=== PATIENT | male | born 1945 | race Caucasian/White ===

== ENCOUNTER → 2017-10-18 | Outpatient (REF) | payer OTHER, MEDICARE, SELFPAY | LOC: LAB 19:06 | PROVIDERS: PCP Internal Medicine; Visit Provider Internal Medicine | DX: I10 Essential (primary) hypertension (principal); E78.00 Pure hypercholesterolemia, unspecified; N40.0 Benign prostatic hyperplasia without lower urinary tract symptoms | CPT/HCPCS: 80048; 80061; 84153; 84450 ==

== ENCOUNTER 2018-03-02 08:21 | Day surgery (SDC) | payer OTHER, MEDICARE, SELFPAY ==
[2018-03-02] VITALS (8 sets, daily range): BP systolic 100–123; BP diastolic 66–78; PULSE 61–75; RESP 12–22; TEMP 35.9–36.2; O2SAT 93–97; BMI 27.3
--- NOTE | 2018-03-02 | PATH_ITS ---
[facility] Accession Number: [id number] . 01 Material submitted: . RIGHT COLON POLYP . 02 Diagnosis: Right Colon, Polyp, Biopsy: Tubular adenoma. MRV/03/03/2018 . 02 Electronically signed: . Lizzeth Lundberg MD, Pathologist NPI- [id number] . 01 Gross description: . Received one formalin-filled container labeled with the patient's name, labeled right colon. The specimen consists of a 0.3 cm portion of tissue, entirely submitted in one cassette. (DC:[id number]) /FRR . 02 Pathologist provided ICD-10: D12.6 . 02 CPT . 330790 Performed at: [address] [facility] [address] [id number] MD Daniel Jimenez MD Phone: [phone] Performed at: 02 [facility] [address] [place], [place] [id number] MD Kamaljit Figueroa MD Phone: [phone]
[2018-03-02] MEDS: SODIUM CHLORIDE 0.9% 1,000 ML 42 ML IV (09:15)
--- NOTE | 2018-03-02 09:25 | P.CONS_ITS ---
History of Present Illness Date Patient Seen: 03/02/18 Time Patient Seen: 09:23 Chief complaint: colonoscopy egd [id number] Reason for consult: Colonoscopy Narrative: Patient is a 72year-old male with a history of polyps and due for follow-up colonoscopy. He has no GI symptoms. [facility] Social History household members: spouse Comment: See for previous history. Patient has atrial fibrillation status post pacemaker placement hypertension and reflux Meds Home Medications Medication Instructions Recorded Confirmed Type aspirin 162 mg PO QDAY #0 03/14/16 03/02/18 History Lactobacillus acidophilus 1 tab PO QDAY #0 tab 03/30/16 History multivitamin [Multiple Vitamins] 1 tab PO QDAY #0 tab 03/30/16 History [PROBIOTIC] 1 cap PO QDAY #0 08/12/16 History lisinopril 10 mg PO QDAY #30 tab 08/12/16 03/02/18 History propranolol 10 mg PO QDAY #0 08/12/16 03/02/18 History amlodipine 10 mg PO DAILY 03/02/18 03/02/18 History Allergies Allergy/AdvReac Type Severity Reaction Status Date / Time No Known Drug Allergies Allergy Verified 03/02/18 08:56 Exam Vital Signs (past 8 hours): HEENT oropharynx free of lesion Chest clear to auscultation percussion Cardiac exam reveals no S3 or murmur- 03/02/18 08:59 Temperature 96.8 F L Pulse Rate 62 Respiratory Rate 16 Blood Pressure 123/78 H Pulse Oximetry 95 Oxygen Delivery Method Room Air Assessment & Plan Plan: Assessment/Plan Narrative: Colonoscopy
--- NOTE | 2018-03-02 10:06 | PM.OP.ENDO ---
Operative Date/Time/Diagnoses Date of procedure: 03/02/18 Time of procedure: 10:06 Pre-op diagnosis: Screening and dysphagia Post-op diagnosis: same Procedure & Clinicians Study performed: EGD and colonoscopy Same procedure as scheduled: Yes Indications: Upper substernal dysphagia with known past history of a mild Schatzki's ring. Last colonoscopy 10 years ago. Follow-up for screening Procedure Notes Procedure in detail: After informed consent was obtained the patient was placed in the left lateral decubitus position. The video upper scope placed into the oropharynx with the patient's help swallowed into the esophagus. The esophagus stomach and duodenum were carefully examined. On withdrawal retroflexed view the GE junction was performed. The scope was removed. The patient was then turned and the colonoscope was introduced to the rectum slowly advanced to the cecum. On slow withdrawal the mucosa was carefully examined. Preparation was good. Scope was removed patient tolerated procedure well Blood loss none Complications none Medications: Fentanyl 100 mcg, Versed 4 mg plus total sedation time Findings Upper endoscopy 1. LA classification C esophagitis with 4 areas of erosion at the squamocolumnar junction. There was mild stricturing at this level/Schatzki's ring. A 48 [place] dilator was passed over the guidewire without difficulty. 2. Small hiatal hernia between 37 and 39 cm. 3. Normal stomach otherwise 4. Normal duodenal bulb and sweep Colonoscopy 1. 4 mm polyp in mid ascending colon Jumbo biopsy did remove completely 2. Rare scattered diverticular orifices 3. Otherwise negative colonoscopy to cecum We will be in touch regarding his polyp biopsies but most certainly will need follow-up colonoscopy in 5 years. He is currently not on any acid suppressing medication though he should be. I would suggest pantoprazole 40 mg daily. He should call in 4 weeks let me know how he is doing from the standpoint of his dysphagia.
--- NOTE | 2018-03-02 10:07 | SUR.OPER ---
to endo from opd via cart respiration unlabired iv patent positioned per self for procedure
--- NOTE | 2018-03-02 10:37 | SUR.OPER ---
tolerated procedure well
[2018-03-02] MEDS: MIDAZOLAM 5 MG/5 ML VIAL 9 MG IV (10:40)
[2018-03-02] MEDS: fentaNYL 250 MCG/5 ML INJ 100 MCG IV (10:40)
--- NOTE | 2018-03-02 10:42 | P.OP.ENDO_ITS ---
Operative Date/Time/Diagnoses Date of procedure: 03/02/18 Time of procedure: 10:39 Pre-op diagnosis: Dysphagia and 10 year screening colonoscopy Post-op diagnosis: same Procedure & Clinicians Surgeon: Aaliyah Farrell Procedure Notes Procedure in detail: After informed consent was obtained the patient was placed in left lateral decubitus position. The video upper scope was placed into the oropharynx with the patient's help swallowed into of the esophagus. The esophagus stomach and duodenum were carefully examined. On withdrawal retroflex view of the GE junction was performed. The scope was removed the patient tolerated procedure well. The patient was then turned and the colonoscope was substituted. This was introduced in the rectum slowly advanced to the cecum. This was identified by appendiceal orifice and IC valve. Preparation was excellent. On slow withdrawal mucosa was carefully examined. The scope was removed the patient tolerated procedure well. Blood loss none complications none Sedation fentanyl 100 mcg Versed 9 mg IV titration. Total sedation time 17 min Findings EGD 1. LA classification C esophagitis with 4 areas of discontinuous erosive disease at the GE junction 37 cm from the incisors. There was a mild Schatzki' s ring/inflammatory stricture here which was dilated to 48 [place] Savary. 2. 2 cm hiatal hernia between 37 and 39 cm 3. Otherwise negative stomach Four. Normal duodenum Colonoscopy One. 4 mm polyp in the mid ascending colon Jumbo biopsy removed completely 2. Rare scattered diverticular orifices 3. Otherwise negative colonoscopy to cecum We will be in touch with the patient regarding his polyp findings but almost certainly will need follow-up colonoscopy in 5 years. Has concerns is dysphagia who be placed on acid suppressing medication to heal his esophagitis and be in touch with me by telephone in 4 weeks to let me know how his dysphagia is doing. He has no background history of heartburn. Sedation minutes: 17 Recommendations: Colonscopy in 5 years
== END 2018-03-02 11:25 | disposition home or self-care (01) ==
PROVIDERS: PCP Internal Medicine; Visit Provider Internal Medicine Gastroenterology
PROC: 0DJ08ZZ Inspection of Upper Intestinal Tract, Via Natural or Artificial Opening Endoscopic (ICD-10-PCS; CPT 43235; principal; 2018-03-02 09:30)
PROC: 0DJD8ZZ Inspection of Lower Intestinal Tract, Via Natural or Artificial Opening Endoscopic (ICD-10-PCS; CPT 45378; 2018-03-02 09:30)
DX: Z12.11 Encounter for screening for malignant neoplasm of colon (principal); R13.14 Dysphagia, pharyngoesophageal phase; K57.30 Diverticulosis of large intestine without perforation or abscess without bleeding; K21.9 Gastro-esophageal reflux disease without esophagitis; K20.9 Esophagitis, unspecified; K22.2 Esophageal obstruction; K44.9 Diaphragmatic hernia without obstruction or gangrene; D12.2 Benign neoplasm of ascending colon
CPT/HCPCS: 45380; 43248; 88305; J2250; J3010

== ENCOUNTER → 2019-10-17 09:38 | Outpatient (CLI) | payer OTHER, MEDICARE, SELFPAY ==
[2019-10-17 10:12] LABS: RBC Urine None Seen (0-5/HPF); WBC Urine None Seen (0-5/HPF)
[2019-10-17 11:06] LABS: Appearance Urine UA CLEAR; Bilirubin Urine UA NEGATIVE (NEGATIVE); Color Urine UA YELLOW; Glucose Urine UA NEGATIVE (Negative); Ketones Urine UA NEGATIVE (NEGATIVE); Leukocyte Esterase Urine UA NEGATIVE (NEGATIVE); Nitrite Urine UA NEGATIVE (Negative); Occult Blood Urine UA NEGATIVE (Negative); Protein Urine UA NEGATIVE (Negative); Specific Gravity Urine UA >=1.030 (1.000-1.035); Urobilinogen Urine UA 0.2 E.U./dL (0.2)
[2019-10-17 11:09] LABS: Bacteria Urine Occasional (0-1); Culture Indicated Urine Cult Not Indicated; Mucus Urine 3+ (Negative)
[2019-10-17 11:39] LABS: Add Manual Diff / Slide Review NO; Basophils Absolute Auto 0 /uL (0-100); Basophils Percent Auto 0.4 % (0-2); Eosinophils Absolute Auto 300 /uL (0-450); Eosinophils Percent Auto 3.7 % (2-4); Hematocrit 42.5 % (41-53); Hemoglobin 14.6 g/dL (13.5-17.5); Lymphocytes Absolute Auto 2200 /uL (1100-4500); Lymphocytes Percent Auto 28.5 % (25-40); Mean Corpuscular HGB Conc 34.3 % (30-36); Mean Corpuscular Hemoglobin 31.1 PG (26-34); Mean Corpuscular Volume 90.6 fL (80-100); Monocytes Absolute Auto 800 /uL (0-900); Neutrophils Absolute Auto 4300 /uL (1500-7000); Neutrophils Percent Auto 57.4 % (50-75); Platelet Count 249 X10^3/uL (150-400); Red Blood Cell Count 4.69 X10^6/uL (4.5-5.9); Red Cell Distribution Width 13.6 % (11.6-14.8); White Blood Cell Count 7.6 X10^3/uL (4.5-11.0)
[2019-10-17 11:57] LABS: Alanine Aminotransferase 40 IU/L (<50); Albumin 4.1 g/dL (3.5-5.0); Albumin Globulin Ratio 1.1 (1.0-2.8); Alkaline Phosphatase 71 U/L (38-126); Aspartate Aminotransferase 33 IU/L (17-59); BUN Creatinine Ratio 25.6 (6-22); Bilirubin Total 0.7 mg/dL (0.2-1.3); Blood Urea Nitrogen 23 mg/dL (9-20); Calcium 9.7 mg/dL (8.4-10.2); Carbon Dioxide 26 mmol/L (22-32); Chloride 104 mmol/L (98-107); Cholesterol 178 mg/dL (140-199); Estimated Glomerular Filt Rate > 60.0 mL/min (>60); Globulin 3.7 g/dL (1.7-4.1); Glucose 102 mg/dL (80-110); HDL Cholesterol 37 mg/dL (40-60); HEMOLYSIS < 15 (0-50); LDL Cholesterol Calculated 117 mg/dL (<100); Potassium 4.8 mmol/L (3.4-5.1); Sodium 141 mmol/L (137-145); Total Protein 7.8 g/dL (6.3-8.2); Triglycerides 118 mg/dL (35-150)
[2019-10-17 12:27] LABS: Prostate Specific Antigen Scrn 1.68 ng/mL (0.1-4.0)
== END ==
PROVIDERS: PCP Internal Medicine; Referring Provider Orthopaedic Surgery; Visit Provider Orthopaedic Surgery
DX: N40.0 Benign prostatic hyperplasia without lower urinary tract symptoms (principal); I10 Essential (primary) hypertension; E78.00 Pure hypercholesterolemia, unspecified; E66.3 Overweight; E78.2 Mixed hyperlipidemia
CPT/HCPCS: 36415; 80053; 80061; 81001; 85025; G0103

== ENCOUNTER → 2022-01-26 17:06 | Outpatient (CLI) | payer MEDICARE, SELFPAY ==
[2022-01-26 18:10] LABS: Hematocrit 45.1 % (41-53); Hemoglobin 15.3 g/dL (13.5-17.5); Mean Corpuscular HGB Conc 33.8 % (30-36); Mean Corpuscular Hemoglobin 30.9 PG (26-34); Mean Corpuscular Volume 91.2 fL (80-100); Platelet Count 235 X10^3/uL (150-400); Red Blood Cell Count 4.94 X10^6/uL (4.5-5.9); Red Cell Distribution Width 13.3 % (11.6-14.8); White Blood Cell Count 9.3 X10^3/uL (4.5-11.0)
[2022-01-26 18:42] LABS: Alanine Aminotransferase 35 IU/L (<50); Albumin Globulin Ratio 1.1 (1.0-2.8); Alkaline Phosphatase 73 U/L (38-126); Aspartate Aminotransferase 36 IU/L (17-59); BUN Creatinine Ratio 19.6 (6-22); Bilirubin Total 0.6 mg/dL (0.2-1.3); Blood Urea Nitrogen 22 mg/dL (9-20); Calcium 9.5 mg/dL (8.4-10.2); Carbon Dioxide 31 mmol/L (22-32); Chloride 104 mmol/L (98-107); Cholesterol 132 mg/dL (140-199); Estimated Glomerular Filt Rate > 60 mL/min (>60); Globulin 4.5 g/dL (1.7-4.1); Glucose 89 mg/dL (80-110); HDL Cholesterol 48 mg/dL (40-60); HEMOLYSIS < 15 (0-50); LDL Cholesterol Calculated 47 mg/dL (<100); Potassium 4.2 mmol/L (3.4-5.1); Sodium 144 mmol/L (137-145); Total Protein 9.5 g/dL (6.3-8.2); Triglycerides 187 mg/dL (35-150)
[2022-01-26 19:13] LABS: Prostate Specific Antigen 2.22 ng/mL (0.10-4.00); TSH w/ Reflex to FT4 2.01 uIU/mL (0.47-4.68)
== END ==
PROVIDERS: PCP Internal Medicine; Referring Provider Internal Medicine; Visit Provider Internal Medicine
DX: I10 Essential (primary) hypertension (principal); E78.2 Mixed hyperlipidemia; I67.9 Cerebrovascular disease, unspecified; N40.0 Benign prostatic hyperplasia without lower urinary tract symptoms
CPT/HCPCS: 36415; 80053; 80061; 84153; 84443; 85027

== ENCOUNTER → 2023-02-26 11:01 | Outpatient (CLI) | payer MEDICARE, SELFPAY ==
--- NOTE | 2023-02-26 11:05 | DI.RAD.S_ITS ---
PROCEDURE: XR CHEST 2V INDICATIONS: Dyspnea on exertion TECHNIQUE: 2 views of the chest were acquired. COMPARISON: [facility], , CHEST 1 VIEW, 08/12/2016, 18:35. FINDINGS: Surgical changes and devices: Left chest wall pacemaker leads are in the region of right atrium and right ventricle. Patient is status post prior bilateral shoulder arthroplasty. Lungs and pleura: Mild pulmonary vascular congestion is seen. No focal infiltrate. No pleural effusions or pneumothorax. Mediastinum: Mediastinal contours are normal. Heart size is normal. Bones and chest wall: No suspicious bony abnormalities. Soft tissues appear unremarkable. IMPRESSION: Mild congestion. No focal infiltrate, pleural effusion or pneumothorax. Dictated by: Arian Casey M.D. on 02/26/2023 at 12:57 Approved by: Arian Casey M.D. on 02/26/2023 at 13:00
[2023-02-26 12:25] LABS: Add Manual Diff / Slide Review NO; Basophils Absolute Auto 0 /uL (0-100); Basophils Percent Auto 0.5 % (0-2); Eosinophils Absolute Auto 200 /uL (0-450); Eosinophils Percent Auto 2.3 % (2-4); Hematocrit 43.3 % (41-53); Hemoglobin 14.6 g/dL (13.5-17.5); Lymphocytes Absolute Auto 2500 /uL (1100-4500); Lymphocytes Percent Auto 34.6 % (25-40); Mean Corpuscular HGB Conc 33.6 % (30-36); Mean Corpuscular Hemoglobin 30.3 PG (26-34); Mean Corpuscular Volume 90.1 fL (80-100); Monocytes Absolute Auto 700 /uL (0-900); Monocytes Percent Auto 9.8 % (3-14); Neutrophils Absolute Auto 3700 /uL (1500-7000); Neutrophils Percent Auto 52.8 % (50-75); Platelet Count 272 X10^3/uL (150-400); Red Blood Cell Count 4.81 X10^6/uL (4.5-5.9); White Blood Cell Count 7.1 X10^3/uL (4.5-11.0)
[2023-02-26 13:01] LABS: Alanine Aminotransferase 41 IU/L (<50); Albumin 4.2 g/dL (3.5-5.0); Albumin Globulin Ratio 1.1 (1.0-2.8); Alkaline Phosphatase 71 U/L (38-126); Aspartate Aminotransferase 34 IU/L (17-59); BUN Creatinine Ratio 21.4 (6-22); Bilirubin Total 0.4 mg/dL (0.2-1.3); Blood Urea Nitrogen 25 mg/dL (9-20); Carbon Dioxide 28 mmol/L (22-32); Chloride 106 mmol/L (98-107); Estimated Glomerular Filt Rate > 60 mL/min (>60); Globulin 3.8 g/dL (1.7-4.1); Glucose 68 mg/dL (80-110); HEMOLYSIS 27 (0-50); Potassium 4.4 mmol/L (3.4-5.1); Sodium 140 mmol/L (137-145)
== END ==
PROVIDERS: PCP Internal Medicine; Referring Provider Internal Medicine; Visit Provider Internal Medicine
DX: R06.09 Other forms of dyspnea (principal); I10 Essential (primary) hypertension; R09.89 Other specified symptoms and signs involving the circulatory and respiratory systems
CPT/HCPCS: 36415; 71046; 80053; 84443; 85025

== ENCOUNTER → 2023-03-08 07:51 | Outpatient (CLI) | payer MEDICARE, SELFPAY ==
--- NOTE | 2023-03-08 07:52 | DI.NM.S_ITS ---
PROCEDURE: NM EXERCISE TREADMILL NON NUC COMPARISON: None INDICATIONS: Dyspnea on exertion FINDINGS: Rest ECG sinus rhythm. Pete protocol 7:48, maximum heart rate 133 bpm (92% peak predicted), maximum blood pressure 175/80, 10.1 METS, URIAH -30%. Exercise ECG sinus tachycardia, no ST segment changes, occasional PACs and PVCs. The patient did not complain of exercise-induced chest pain. IMPRESSION: Low risk study. No evidence of exercise-induced ischemia. PACs and PVCs noted near peak exercise and early in recovery. Normal hemodynamic response. Very good exercise capacity. Dictated by: Eloisa Mckee D.O. on 03/08/2023 at 16:50 Approved by: Eloisa Mckee D.O. on 03/08/2023 at 16:52
== END ==
PROVIDERS: PCP Internal Medicine; Referring Provider Internal Medicine; Visit Provider Internal Medicine
DX: R06.09 Other forms of dyspnea (principal)
CPT/HCPCS: 93017

== ENCOUNTER → 2023-04-20 07:48 | Outpatient (CLI) | payer MEDICARE, SELFPAY | PROVIDERS: PCP Internal Medicine; Referring Provider Internal Medicine; Visit Provider Internal Medicine | DX: J43.8 Other emphysema (principal); R06.02 Shortness of breath; R06.00 Dyspnea, unspecified | CPT/HCPCS: 94060; 94726; 94729 ==

== ENCOUNTER → 2023-05-21 08:36 | Outpatient (CLI) | payer MEDICARE, SELFPAY ==
--- NOTE | 2023-05-21 08:37 | DI.CT.S_ITS ---
PROCEDURE: CT CHEST HIGH RESOLUTION INDICATIONS: No specific abnormality on PFT TECHNIQUE: Noncontrast 1.0 and 5.0 mm thick contiguous axial sections from the pulmonary apex to the posterior costophrenic angles, with 7 mm thick coronal and sagittal MIP reformats. 1 mm thick dynamic expiratory images acquired through the upper, mid, and lower lungs. 1.0 mm thick axial sections acquired from the jareth to the posterior costophrenic angles in the prone end-inspiration position. For radiation dose reduction, the following was used: automated exposure control, adjustment of mA and/or kV according to patient size. COMPARISON: None. FINDINGS: Image quality: Excellent. Lungs: Mild bronchial thickening. No reticulation. No bronchiectasis. No honeycombing. A few small pulmonary micro nodules, measuring no greater than 3 millimeters. Mild air trapping. Pleura: No pleural effusions or pneumothorax. Mediastinum: Heart size is enlarged. No pericardial effusion. Thoracic aorta and central pulmonary arteries are normal in size. Esophagus is normal in caliber. Marked, three-vessel coronary artery calcifications. Bones and chest wall: No suspicious bony lesions. No vertebral body compression fractures. Left chest wall pacemaker with intravenous leads. Abdomen: Hepatic steatosis. IMPRESSION: Mild bronchial thickening , suggestive of infectious or inflammatory bronchitis. Mild air trapping, nonspecific, but can be seen in the setting of small airways disease. No definite evidence of interstitial lung disease. A few solid pulmonary micro nodules. Consider 12 month follow-up if at high risk for developing lung cancer, per Fleischner Society guidelines. Hepatic steatosis. Marked coronary artery calcifications for age. Consider cardiology referral. Dictated by: Adrien Shafer M.D. on 05/21/2023 at 11:26 Approved by: Adrien Shafer M.D. on 05/21/2023 at 11:32
== END ==
PROVIDERS: PCP Internal Medicine; Referring Provider Internal Medicine; Visit Provider Internal Medicine
DX: R06.02 Shortness of breath (principal); R91.8 Other nonspecific abnormal finding of lung field; K76.0 Fatty (change of) liver, not elsewhere classified; I25.10 Atherosclerotic heart disease of native coronary artery without angina pectoris
CPT/HCPCS: 71250

== ENCOUNTER → 2023-09-02 16:00 | Outpatient (CLI) | payer OTHER, SELFPAY ==
[2023-09-03 14:19] LABS: Aspartate Aminotransferase 29 IU/L (17-59); BUN Creatinine Ratio 19.8 (6-22); Blood Urea Nitrogen 22 mg/dL (9-20); Calcium 9.9 mg/dL (8.4-10.2); Carbon Dioxide 25 mmol/L (22-32); Chloride 104 mmol/L (98-107); Cholesterol 131 mg/dL (140-199); Estimated Glomerular Filt Rate > 60 mL/min (>60); Glucose 98 mg/dL (80-110); HDL Cholesterol 38 mg/dL (40-60); HEMOLYSIS < 15 (0-50); LDL Cholesterol Calculated 64 mg/dL (<100); Potassium 4.3 mmol/L (3.4-5.1); Sodium 140 mmol/L (137-145); Triglycerides 147 mg/dL (35-150)
[2023-09-03 14:49] LABS: Prostate Specific Antigen 2.55 ng/mL (0.10-4.00)
== END ==
PROVIDERS: PCP Internal Medicine; Referring Provider Internal Medicine; Visit Provider Internal Medicine
DX: I25.10 Atherosclerotic heart disease of native coronary artery without angina pectoris (principal); N40.1 Benign prostatic hyperplasia with lower urinary tract symptoms; E78.2 Mixed hyperlipidemia; N13.8 Other obstructive and reflux uropathy
CPT/HCPCS: 36415; 80048; 80061; 84153; 84450

== ENCOUNTER 2023-12-14 09:08 | Day surgery (SDC) | payer MEDICARE, SELFPAY ==
[2023-12-14] MEDS: LACTATED RINGERS 1,000 ML 42 ML IV (09:36)
[2023-12-14 09:39] VITALS: BP 131/77; PULSE 61; RESP 16; TEMP 36.4; O2SAT 96
--- NOTE | 2023-12-14 10:10 | P.HP_ITS ---
History of Present Illness History of Present Illness Date Patient Seen: 12/14/23 Time Patient Seen: 10:10 Chief complaint: Screening Colonoscopy Narrative: 78-year-old man here for screening colonoscopy. Last colonoscopy over 5 years ago. No family history of intestinal malignancy. No abdominal concerns today. [facility] Medical History Primary osteoarthritis involving multiple joints Overweight Coronary artery disease Bilateral hearing loss SVT (supraventricular tachycardia) Erectile dysfunction Sick sinus syndrome History of colonic polyps Benign essential tremor Transient global amnesia Mixed hyperlipidemia Essential hypertension Cerebrovascular disease Wears glasses Fractures (~1968) Tuberculosis (~1953) Hearing loss Gastric ulcer Pacemaker Surgical History Anesthesia History of cholecystectomy (~03/2016) History of right hip replacement (~10/23/19) History of left shoulder replacement (~2017) History of right shoulder replacement (~2014) History of back surgery Family History Father History of heart disease Mother Tuberculosis Brother Mental health problem Sister History of heart disease Sister Mental health problem Social History household members: spouse Smoking Status: Never smoker alcohol intake: current Meds Home Medications and Allergies Home Medications Medication Instructions Recorded Confirmed Type aspirin 325 mg tablet,delayed 325 mg PO DAILY 12/03/21 12/14/23 History release lisinopril 20 mg tablet 20 mg PO DAILY #90 tabs 05/20/23 12/14/23 Rx amlodipine 10 mg tablet 10 mg PO DAILY #90 tabs 05/21/23 12/14/23 Rx sildenafil (pulm.hypertension) 20 20 mg PO DAILY PRN sexual activity 05/21/23 12/14/23 Rx mg tablet #50 tabs propranolol 60 mg capsule,24 60 mg PO DAILY #90 caps 06/14/23 12/14/23 Rx hr,extended release atorvastatin 40 mg tablet (Lipitor) 40 mg PO DAILY 08/05/23 12/14/23 History Allergies Allergy/AdvReac Type Severity Reaction Status Date / Time No Known Drug Allergies Allergy Verified 12/14/23 09:36 Exam Vital Signs (past 8 hours): - 12/14/23 09:39 Temperature 97.5 F L Pulse Rate 61 Respiratory Rate 16 Blood Pressure 131/77 Pulse Oximetry 96 Oxygen Delivery Method Room Air Oxygen Delivery Method Room Air Narrative Exam Narrative: General adult man alert oriented no acute distress Chest nonlabored respiration Extremities warm well perfused Assessment & Plan Assessment & Plan narrative: The patient requires colorectal screening and colonoscopy is recommended. Technical details were discussed. Risks, benefits, alternatives explained. Risks including but not limited to myocardial infarction, aspiration, bleeding, pain, missed lesion, incomplete examination, need for further radiographic studies, intestinal injury, and need for major abdominal surgery were discussed. All questions were answered to their satisfaction, and they are in agreement with this plan.
[2023-12-14 10:37] VITALS: BP 113/68; PULSE 73; RESP 13; TEMP 36.5; O2SAT 96
--- NOTE | 2023-12-14 10:37 | P.OP.COLON_ITS ---
Operative Date/Time/Diagnoses Date of procedure: 12/14/23 Time of procedure: 10:37 Pre-op diagnosis: Colorectal screening Procedure & Clinicians Study performed: Screening colonoscopy Same procedure as scheduled: Yes Indications: Colorectal screening Surgeon: Edward Zaragoza Procedure Notes Procedure in detail: The history and physical was performed/updated and the patient is ASA class is 2. The procedure was discussed in detail with the patient. Potential risks co mplications including infection, bleeding, missed diagnosis, perforation, need for surgery, and were explained. Their questions were answered and informed consent was obtained. Patient was brought to the procedure room and placed standard monitoring equipment. The patient's vital signs were monitored continuously throughout the entire procedure. Prior to starting time-out was performed. The patient was placed in the left lateral recumbent position. Procedural sedation was administered by anesthesia. Examination began with a thorough inspection of the perianal area there was no evidence of fissures, fistulae, external hemorrhoids or cutaneous malignancy. The colonoscopy scope was then placed into the anal canal and was advanced to the cecum, which was identified by the ileocecal valve, the appendiceal orifice and the confluence of the taenia. The scope was then slowly withdrawn examining colon thoroughly in all directions, irrigating it of any residual stool. The scope was retroflexed within the rectum The patient tolerated the procedure well. They will be discharged once criteria are met. The prep was of good/excellent quality. The withdrawl time was 7 minutes. FINDINGS * No masses polyps or inflammation. * Moderate diverticulosis of descending colon. * Internal hemorrhoids. Specimen(s): none sent Impression: Normal colonoscopy Post-procedure Recommendations: High fiber diet Plan for aftercare: No further colonoscopy necessary unless symptomatic Disposition: same day surgery
[2023-12-14 10:42] VITALS: BP 116/55; PULSE 68; RESP 13; O2SAT 96
[2023-12-14 10:48] VITALS: BP 128/79; PULSE 60; RESP 13; TEMP 36.6; O2SAT 98
== END 2023-12-14 10:59 | disposition home or self-care (01) ==
PROVIDERS: PCP Internal Medicine; Referring Provider Surgery; Visit Provider Surgery
PROC: 0DJD8ZZ Inspection of Lower Intestinal Tract, Via Natural or Artificial Opening Endoscopic (ICD-10-PCS; CPT 45378; principal; 2023-12-14 10:15)
DX: Z12.11 Encounter for screening for malignant neoplasm of colon (principal); K64.8 Other hemorrhoids; K57.30 Diverticulosis of large intestine without perforation or abscess without bleeding
CPT/HCPCS: G0121; J2704

== ENCOUNTER 2024-04-27 09:00 | Outpatient (RCR) | payer MEDICARE, SELFPAY ==
--- NOTE | 2024-03-29 16:08 | PT.OIE ---
Current Diagnoses Unilateral primary osteoarthritis, left knee (03/29/24) Pain in right knee (03/29/24) Other lack of coordination (03/29/24) Weakness (03/29/24) Past Medical History (Last Reviewed 12/14/23 @ 10:10 by Edward Zaragoza MD) Benign essential tremor Bilateral hearing loss Cerebrovascular disease Coronary artery disease Erectile dysfunction Essential hypertension Fractures (~1968) Gastric ulcer Hearing loss History of colonic polyps Mixed hyperlipidemia Overweight Pacemaker Primary osteoarthritis involving multiple joints Sick sinus syndrome SVT (supraventricular tachycardia) Transient global amnesia Tuberculosis (~1953) Wears glasses Past Surgical History (Last Reviewed 12/14/23 @ 10:10 by Edward Zaragoza MD) Anesthesia History of back surgery History of cholecystectomy (~03/2016) 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/23/19) History of right shoulder replacement (~2014) Visit Care Team Role Provider Type Asael Carrington MD Family Provider Physician Primary Care Provider Specialty: Internal Medicine Address: [address] [place] [address], [facility] Email: [email or web address] Ricardo Roy MD Attending Provider Non-Staff Referring Provider Specialty: Medical Address: [address] [place] [address], [place], [address] Email: Physical Therapy Initial Evaluation PT-OP-A Visit Information Start: 03/29/24 12:54 Freq: Status: Active Protocol: Document 03/29/24 13:01 NM (Rec: 03/29/24 13:48 NM [id number]) Out-Patient Physical Therapy Visit Information Visit Information Visit Type Initial Evaluation Visit Start Time 13:04 Visit Stop Time 13:44 Visit Number 1 Evaluation Information Evaluation Date 03/29/24 Precautions Precautions pacemaker, osteoporosis, high blood pressure, dizziness , TB, memory loss PT-OP-B Current Condition Start: 03/29/24 12:54 Freq: Status: Active Protocol: Document 03/29/24 13:01 NM (Rec: 03/29/24 13:48 NM [id number]) Current Condition History of Current Condition Onset Date chronic Current Complaints pain, mobility limitations, ROM, strength History of Current Condition Pt is planning to have his L knee replaced in June 06, 2024. He is planning to have the other replaced. Pt presents with B knee pain. He was prescribed PT in preparation for surgery. He reports that the pain wakes him up; usually a side sleeper . He reports difficulty with floor transfers, stairs, downhill, ambulation. 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 He reports that it irri under him when he ambulates. Has not had any fall, but reports balance is off and wobbling. He does not have any AD, does not own one. He has had a previous R TRAVON, B TSA. He has a pacemaker; hx of back surgeries (3 for ruptured discs -15 years) but states only bothers him when lifting weights. He reports that his knee does not limit his ability to golf. He lives in a 2 story home but only has 2 steps, stairs indoor. Treatment Goals Patient/Caregiver Goals whatever will make the doc happy, getting stronger Current Functional Impairments (Reported) Functional Limitations- Mobility/Gait ambulates 3x/wk with men's walking group Functional Limitations- Work/School works on boat Functional Limitations- Recreation/ golfing ea month Hobbies PT-OP-C Subjective Start: 03/29/24 12:54 Freq: Status: Active Protocol: Document 03/29/24 13:01 NM (Rec: 03/29/24 13:48 NM [id number]) OP-PT Subjective Patient Comments Patient Comments pt consents to participate in evaluation Patient Questionnaires Lower Extremity Functional Scale LEFS Score 32/80 OP-PT Pain Assessment Location R knee Pain Location Details joint line Intensity 2 Scale Used Numeric (0 - 10) Description Aching,Dull,Sharp Frequency Frequent Radiating Location no hip pain Pain Aggravating Factors ADL's,Activity,Exercise, Standing,Walking,Stair Climbing Other Pain Aggravating Factors same as L but not as bad Pain Alleviating Factors Medication L knee Pain Location Details jointline Intensity 3 Scale Used Numeric (0 - 10) Description Aching,Dull,Sharp Frequency Daily Pain Duration 30 sec Radiating Location lateral hip- usually w/ walking, lying down Pain Aggravating Factors ADL's,Activity,Exercise, Standing,Walking,Stair Climbing Pain Alleviating Factors Medication,Rest Other Pain Alleviating Factors daily 1x/day (am) PT-OP-D Balance Start: 03/29/24 12:54 Freq: Status: Active Protocol: Document 03/29/24 13:01 NM (Rec: 03/29/24 13:48 NM [id number]) Balance Tests Single Limb Standing Single Limb- Right 5 seconds Single Limb- Left 4 seconds PT-OP-E Functional Tests Start: 03/29/24 12:54 Freq: Status: Active Protocol: Document 03/29/24 13:01 NM (Rec: 03/29/24 13:48 NM [id number]) Functional Tests 6 Minute Walk Test Distance 1353 ft Device Used none 30 Second Sit to Stand Test Score 10 Comments ext painful Five Times Sit to Stand Test Score 15 sec Comments ext painful PT-OP-F Manual Assessment Start: 03/29/24 12:54 Freq: Status: Active Protocol: Document 03/29/24 13:01 NM (Rec: 03/29/24 13:48 NM [id number]) Manual Assessments Soft Tissue Assessment Soft Tissue Mobility Assessment Increased restrictions of hamstrings, hip flexors, and ITB B (L>R) Joint Mobility Assessment Joint Mobility Assessment crepitus and clicking with PROM and AROM, limited patellar mobility PT-OP-G Mobility & Gait Start: 03/29/24 12:54 Freq: Status: Active Protocol: Document 03/29/24 13:01 NM (Rec: 03/29/24 13:48 NM [id number]) OP Gait Assessment Gait Gait Assistance Required: Standby Assistance Distance (Feet) 1,353 Comments Gait Comments antalgic gait with hip ER on BLE, increased trunk flex with fatigue. Slight trunk flexed posture naturally, wider based gait. One stumble without LOB , able to self correct Stair Climbing Evaluation Technique/Endurance Stair Climbing Direction Ascend and Descend Stair Climbing Technique Step Over Step Number of Steps Climbed 4 Stair Climbing Set # Repetitions (reps) 1 Comments Stair Climbing Comments slight stumble without rail use, close SBA; knee pain with flexion upon descent PT-OP-J Posture/Palpation/Skin Start: 03/29/24 12:54 Freq: Status: Active Protocol: Document 03/29/24 13:01 NM (Rec: 03/29/24 13:48 NM [id number]) Posture Evaluation Position Standing Head/C-Spine Posture Forward Head Pelvis Posture Anteriorly Tilted Weight Distribution Weight Shifted Right Hip Posture (L) Externally Rotated,(R) Externally Rotated Patellar Posture (L) Superior,(R) Superior,(L) Laterally Tilted Palpation Assessment Location B knees Palpation Details tender along B joint lines patella situated superiorly PT-OP-K Range of Motion Start: 03/29/24 12:54 Freq: Status: Active Protocol: Document 03/29/24 13:01 NM (Rec: 03/29/24 13:48 NM [id number]) Knee Goniometric Range of Motion Knee Right Flexion Active (degrees) 127 Flexion Passive (degrees) 130 Extension Active (degrees) 5 Comments 5 deg lacking with quad set Left Flexion Active (degrees) 127 Flexion Passive (degrees) 130 Extension Active (degrees) 10 Comments 5 deg lacking w/ quad set PT-OP-M Strength Start: 03/29/24 12:54 Freq: Status: Active Protocol: Document 03/29/24 13:01 NM (Rec: 03/29/24 13:48 NM [id number]) Hip Strength Hip Manual Muscle Testing Right Flexion (L2) 4 Good Extension (S1) 4 Good Abduction 4- Good- Adduction 4- Good- Left Flexion (L2) 4 Good Extension (S1) 4 Good Abduction 4- Good- Adduction 4- Good- Knee Strength Knee Manual Muscle Testing Right Flexion (S2) 4 Good Extension (L3) 4 Good Left Flexion (S2) 4 Good Extension (L3) 4 Good Comments pain free Ankle/Foot Strength Ankle and Foot Manual Muscle Testing Right Dorsiflexion (L4) 4 Good Plantarflexion (S1) 4 Good Left Dorsiflexion (L4) 4 Good Plantarflexion (S1) 4 Good Comments tested in sitting PT-OP-Q Treatments Start: 03/29/24 12:54 Freq: Status: Active Protocol: Document 03/29/24 13:01 NM (Rec: 03/29/24 13:48 NM [id number]) Therapeutic Exercises Other Exercises self soft tissue mobilization Other Exercise Name quad, HS, calves Side bilateral Equipment Used rolling pin Reps/Minutes 6 minutes Comments HEP PT-OP-T Assessment and Plan Start: 03/29/24 12:54 Freq: Status: Active Protocol: Document 03/29/24 13:01 NM (Rec: 03/29/24 13:48 NM [id number]) Physical Therapy Assessment Rehab Potential Rehabilitation Potential Fair Evaluation Complexity Number of Personal Factors/Comorbidities 3 or More Number of Body Systems Impaired 4 or More Clinical Presentation at Evaluation Stable Impairments Impairments Activity Tolerance,Balance, Functional Activities, Functional Mobility,Gait,Pain, Posture,ROM,Sensation,Soft Tissue Mobility,Strength, Transfers Other Concerns Barriers to Rehabilitation PMH of pacemaker, osteoporosis , high blood pressure, dizziness, TB, memory loss, in addition several previous joint replacements. Pt will be going on a trip in mid- April before his surgery and will be gone until 1-2 weeks pre-op Goals Four Impairment HEP Short Term Goal (STG) Pt will report compliance with HEP at least 2x/wk in order to maximize progression with PT STG Duration 2 weeks Sound Effects Technician Goal (LTG) Pt will report compliance with HEP at least 3x/wk in order to promote independence upon discharge and maintain progress before surgery LTG Duration 4 weeks Three Impairment ROM- limited into extension B Sound Effects Technician Goal (LTG) Pt will improve B knee extension AROM to at least 5 deg in order to demonstrate improved terminal extension required for ambulation post- op LTG Duration 4 weeks Two Impairment strength Sound Effects Technician Goal (LTG) Pt will improve his global B knee and hip strength to at least 4+/5 in order to demonstrate increased strength for transfers, mobility when post-op LTG Duration 4 weeks One Impairment SLS impaired Sound Effects Technician Goal (LTG) Pt will improve SLS to at least 8 seconds on ea leg without LOB or hand support in order to demonstrate improved single leg stability during gait for future ambulation post-op without AD LTG Duration 4 weeks Assessment Summary Assessment Pt is a 79 y.o. male presenting with B knee pain, L >R, consistent with dx. He is planning to have surgery in May for his L knee. Pt has impairments in ROM, strength, gait, balance, pain management, and activity tolerance. He has limitations in B knee flexion and extension ROM, but extension is most limited. Pt will need as much terminal knee extension post-operatively to normalize gait mechanics. His BLE hip and knee strength is also limited but not painful against resistance. Pt has knee pain with STS transfers, stairs, and with increased time during ambulation while performing 6 MWT. His 6MWT distance is limited for his age and gender. PT educated pt on exam findings and plan of care. He is planning to go on a trip for several weeks during April and May, so pt will have limited number of pre-operative visits; pt verbalizes agreement. He would benefit from skilled PT for B strengthening, ROM, and education on transfers and body mechanics in order to improve mobility and future outcomes for upcoming surgery. Physical Therapy Plan Frequency and Duration Frequency of Treatment 2x/Week Duration of treatment (weeks) 4 Plan of Care Start Date 03/29/24 Plan of Care End Date 04/28/24 Therapeutic Interventions Therapeutic Interventions Balance Training,Gait Training ,Home Exercise Program,Joint Mobilizations,Manual Therapy, Neuromuscular Re-education, Orthotic/Prosthetic Management ,Patient/Caregiver Education, Self-Care/Home Management, Sensory Integration,Soft Tissue Mobilization,Taping, Therapeutic Activities, Therapeutic Exercises Modalities Cold Pack/Ice Massage,Hot Packs Other Therapeutic Interventions pacemaker, previous joint replacements No grade IV mobilizations due to osteoporosis Next Visit Focus/Plan Next Note Type Treatment Note Next Visit Plan QS, TKE, SAQ vs LAQ, bridge heel slides, quad and hip flexor stretch, HS stretch education for transfers and gait with AD, stairs post-op
--- NOTE | 2024-03-29 16:08 | PT.OPPOC ---
Physical, Occupational & Speech Therapy At [facility] Current Diagnoses Unilateral primary osteoarthritis, left knee (03/29/24) Pain in right knee (03/29/24) Other lack of coordination (03/29/24) Weakness (03/29/24) Visit Care Team Role Provider Type Asael Carrington MD Family Provider Physician Primary Care Provider Specialty: Internal Medicine Address: [address] [place] [address], [id number] Email: [email or web address] Ricardo Roy MD Attending Provider Non-Staff Referring Provider Specialty: Medical Address: [address] [place] [address] [address] [facility], [place], [address] Email: Plan Of Care PT-OP-B Current Condition Start: 03/29/24 12:54 Freq: Status: Active Protocol: Document 03/29/24 13:01 NM (Rec: 03/29/24 13:48 NM [id number]) Current Condition History of Current Condition Onset Date chronic Current Complaints pain, mobility limitations, ROM, strength History of Current Condition Pt is planning to have his L knee replaced in June 06, 2024. He is planning to have the other replaced. Pt presents with B knee pain. He was prescribed PT in preparation for surgery. He reports that the pain wakes him up; usually a side sleeper . He reports difficulty with floor transfers, stairs, downhill, ambulation. 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 He reports that it riri under him when he ambulates. Has not had any fall, but reports balance is off and wobbling. He does not have any AD, does not own one. He has had a previous R TRAVON, B TSA. He has a pacemaker; hx of back surgeries (3 for ruptured discs -15 years) but states only bothers him when lifting weights. He reports that his knee does not limit his ability to golf. He lives in a 2 story home but only has 2 steps, stairs indoor. Treatment Goals Patient/Caregiver Goals whatever will make the doc happy, getting stronger Current Functional Impairments (Reported) Functional Limitations- Mobility/Gait ambulates 3x/wk with men's walking group Functional Limitations- Work/School works on boat Functional Limitations- Recreation/ golfing ea Hobbies PT-OP-T Assessment and Plan Start: 03/29/24 12:54 Freq: Status: Active Protocol: Document 03/29/24 13:01 NM (Rec: 03/29/24 13:48 NM [id number]) Physical Therapy Assessment Rehab Potential Rehabilitation Potential Fair Evaluation Complexity Number of Personal Factors/Comorbidities 3 or More Number of Body Systems Impaired 4 or More Clinical Presentation at Evaluation Stable Impairments Impairments Activity Tolerance,Balance, Functional Activities, Functional Mobility,Gait,Pain, Posture,ROM,Sensation,Soft Tissue Mobility,Strength, Transfers Other Concerns Barriers to Rehabilitation PMH of pacemaker, osteoporosis , high blood pressure, dizziness, TB, memory loss, in addition several previous joint replacements. Pt will be going on a trip in mid- April before his surgery and will be gone until 1-2 weeks pre-op Goals Four Impairment HEP Short Term Goal (STG) Pt will report compliance with HEP at least 2x/wk in order to maximize progression with PT STG Duration 2 weeks [facility] Goal (LTG) Pt will report compliance with HEP at least 3x/wk in order to promote independence upon discharge and maintain progress before surgery LTG Duration 4 weeks Three Impairment ROM- limited into extension B Compounding Assistant Goal (LTG) Pt will improve B knee extension AROM to at least 5 deg in order to demonstrate improved terminal extension required for ambulation post- op LTG Duration 4 weeks Two Impairment strength [facility] Goal (LTG) Pt will improve his global B knee and hip strength to at least 4+/5 in order to demonstrate increased strength for transfers, mobility when post-op LTG Duration 4 weeks One Impairment SLS impaired Compounding Assistant Goal (LTG) Pt will improve SLS to at least 8 seconds on ea leg without LOB or hand support in order to demonstrate improved single leg stability during gait for future ambulation post-op without AD LTG Duration 4 weeks Assessment Summary Assessment Pt is a 79 y.o. male presenting with B knee pain, L >R, consistent with dx. He is planning to have surgery in May for his L knee. Pt has impairments in ROM, strength, gait, balance, pain management, and activity tolerance. He has limitations in B knee flexion and extension ROM, but extension is most limited. Pt will need as much terminal knee extension post-operatively to normalize gait mechanics. His BLE hip and knee strength is also limited but not painful against resistance. Pt has knee pain with STS transfers, stairs, and with increased time during ambulation while performing 6 MWT. His 6MWT distance is limited for his age and gender. PT educated pt on exam findings and plan of care. He is planning to go on a trip for several weeks during April and May, so pt will have limited number of pre-operative visits; pt verbalizes agreement. He would benefit from skilled PT for B strengthening, ROM, and education on transfers and body mechanics in order to improve mobility and future outcomes for upcoming surgery. Physical Therapy Plan Frequency and Duration Frequency of Treatment 2x/Week Duration of treatment (weeks) 4 Plan of Care Start Date 03/29/24 Plan of Care End Date 04/28/24 Therapeutic Interventions Therapeutic Interventions Balance Training,Gait Training ,Home Exercise Program,Joint Mobilizations,Manual Therapy, Neuromuscular Re-education, Orthotic/Prosthetic Management ,Patient/Caregiver Education, Self-Care/Home Management, Sensory Integration,Soft Tissue Mobilization,Taping, Therapeutic Activities, Therapeutic Exercises Modalities Cold Pack/Ice Massage,Hot Packs Other Therapeutic Interventions pacemaker, previous joint replacements No grade IV mobilizations due to osteoporosis Next Visit Focus/Plan Next Note Type Treatment Note Next Visit Plan QS, TKE, SAQ vs LAQ, bridge heel slides, quad and hip flexor stretch, HS stretch education for transfers and gait with AD, stairs post-op Plan of Care Dates Plan of Care Start Date 03/29/24 Plan of Care End Date 04/28/24 Electronically Signed by: Saadia Ibarra, PT 03/29/24 [id number] If you are in agreement with this Plan of Care, please return a signed and dated copy. I have reviewed this Plan of Care and certify that the skilled therapy services above are required to meet the patient?s needs. Physician Signature Date Printed Name and Credentials Clinical Instructor Signature Printed Name and Credentials
--- NOTE | 2024-03-31 13:45 | PT.OTN ---
Current Diagnoses Unilateral primary osteoarthritis, left knee (03/31/24) Pain in right knee (03/31/24) Other lack of coordination (03/31/24) Weakness (03/31/24) Physical Therapy Treatment Note PT-OP-A Visit Information Start: 03/29/24 12:54 Freq: Status: Active Protocol: Document 03/31/24 13:02 NM (Rec: 03/31/24 13:44 NM [id number]) Out-Patient Physical Therapy Visit Information Visit Information Visit Type Treatment Note Visit Start Time 13:02 Visit Stop Time 13:42 Visit Number 2 Evaluation Information Evaluation Date 03/29/24 Precautions Precautions pacemaker, osteoporosis, high blood pressure, dizziness , TB, memory loss PT-OP-B Current Condition Start: 03/29/24 12:54 Freq: Status: Active Protocol: Document 03/29/24 13:01 NM (Rec: 03/29/24 13:48 NM [id number]) Current Condition History of Current Condition Onset Date chronic Current Complaints pain, mobility limitations, ROM, strength History of Current Condition Pt is planning to have his L knee replaced in June 06, 2024. He is planning to have the other replaced. Pt presents with B knee pain. He was prescribed PT in preparation for surgery. He reports that the pain wakes him up; usually a side sleeper . He reports difficulty with floor transfers, stairs, downhill, ambulation. 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 He reports that it riri under him when he ambulates. Has not had any fall, but reports balance is off and wobbling. He does not have any AD, does not own one. He has had a previous R TRAVON, B TSA. He has a pacemaker; hx of back surgeries (3 for ruptured discs -15 years) but states only bothers him when lifting weights. He reports that his knee does not limit his ability to golf. He lives in a 2 story home but only has 2 steps, stairs indoor. Treatment Goals Patient/Caregiver Goals whatever will make the doc happy, getting stronger Current Functional Impairments (Reported) Functional Limitations- Mobility/Gait ambulates 3x/wk with men's walking group Functional Limitations- Work/School works on boat Functional Limitations- Recreation/ golfing ea month Hobbies PT-OP-C Subjective Start: 03/29/24 12:54 Freq: Status: Active Protocol: Document 03/31/24 13:02 NM (Rec: 03/31/24 13:44 NM [id number]) OP-PT Subjective Patient Comments Patient Comments Pt reports that he tried the rolling pin, states a little uncomfortable. Starting wtih 6 -7/10 on pain scale. PT-OP-D Balance Start: 03/29/24 12:54 Freq: Status: Active Protocol: Document 03/29/24 13:01 NM (Rec: 03/29/24 13:48 NM [id number]) Balance Tests Single Limb Standing Single Limb- Right 5 seconds Single Limb- Left 4 seconds PT-OP-E Functional Tests Start: 03/29/24 12:54 Freq: Status: Active Protocol: Document 03/29/24 13:01 NM (Rec: 03/29/24 13:48 NM [id number]) Functional Tests 6 Minute Walk Test Distance 1353 ft Device Used none 30 Second Sit to Stand Test Score 10 Comments ext painful Five Times Sit to Stand Test Score 15 sec Comments ext painful PT-OP-F Manual Assessment Start: 03/29/24 12:54 Freq: Status: Active Protocol: Document 03/29/24 13:01 NM (Rec: 03/29/24 13:48 NM [id number]) Manual Assessments Soft Tissue Assessment Soft Tissue Mobility Assessment Increased restrictions of hamstrings, hip flexors, and ITB B (L>R) Joint Mobility Assessment Joint Mobility Assessment crepitus and clicking with PROM and AROM, limited patellar mobility PT-OP-G Mobility & Gait Start: 03/29/24 12:54 Freq: Status: Active Protocol: Document 03/29/24 13:01 NM (Rec: 03/29/24 13:48 NM [id number]) OP Gait Assessment Gait Gait Assistance Required: Standby Assistance Distance (Feet) 1,353 Comments Gait Comments antalgic gait with hip ER on BLE, increased trunk flex with fatigue. Slight trunk flexed posture naturally, wider based gait. One stumble without LOB , able to self correct Stair Climbing Evaluation Technique/Endurance Stair Climbing Direction Ascend and Descend Stair Climbing Technique Step Over Step Number of Steps Climbed 4 Stair Climbing Set # Repetitions (reps) 1 Comments Stair Climbing Comments slight stumble without rail use, close SBA; knee pain with flexion upon descent PT-OP-J Posture/Palpation/Skin Start: 03/29/24 12:54 Freq: Status: Active Protocol: Document 03/29/24 13:01 NM (Rec: 03/29/24 13:48 NM [id number]) Posture Evaluation Position Standing Head/C-Spine Posture Forward Head Pelvis Posture Anteriorly Tilted Weight Distribution Weight Shifted Right Hip Posture (L) Externally Rotated,(R) Externally Rotated Patellar Posture (L) Superior,(R) Superior,(L) Laterally Tilted Palpation Assessment Location B knees Palpation Details tender along B joint lines patella situated superiorly PT-OP-K Range of Motion Start: 03/29/24 12:54 Freq: Status: Active Protocol: Document 03/29/24 13:01 NM (Rec: 03/29/24 13:48 NM [id number]) Knee Goniometric Range of Motion Knee Right Flexion Active (degrees) 127 Flexion Passive (degrees) 130 Extension Active (degrees) 5 Comments 5 deg lacking with quad set Left Flexion Active (degrees) 127 Flexion Passive (degrees) 130 Extension Active (degrees) 10 Comments 5 deg lacking w/ quad set PT-OP-M Strength Start: 03/29/24 12:54 Freq: Status: Active Protocol: Document 03/29/24 13:01 NM (Rec: 03/29/24 13:48 NM [id number]) Hip Strength Hip Manual Muscle Testing Right Flexion (L2) 4 Good Extension (S1) 4 Good Abduction 4- Good- Adduction 4- Good- Left Flexion (L2) 4 Good Extension (S1) 4 Good Abduction 4- Good- Adduction 4- Good- Knee Strength Knee Manual Muscle Testing Right Flexion (S2) 4 Good Extension (L3) 4 Good Left Flexion (S2) 4 Good Extension (L3) 4 Good Comments pain free Ankle/Foot Strength Ankle and Foot Manual Muscle Testing Right Dorsiflexion (L4) 4 Good Plantarflexion (S1) 4 Good Left Dorsiflexion (L4) 4 Good Plantarflexion (S1) 4 Good Comments tested in sitting PT-OP-Q Treatments Start: 03/29/24 12:54 Freq: Status: Active Protocol: Document 03/31/24 13:02 NM (Rec: 03/31/24 13:44 NM [id number]) Therapeutic Exercises Supine Exercises SAQ Side bilateral Resistance AROM Equipment Used foam roller Reps/Minutes 15x5 hold Comments good TKE, pain free HS stretch Side bilateral Equipment Used strap at foot Reps/Minutes 2x60 ea Comments cued keep knee extended and lower from hip flex as needed; pain free Sidelying Exercises hip abduction Sidelying Exercise Name with hip IR and DF Side bilateral Equipment Used pillow btwn legs for comfort Reps/Minutes 2x10 ea Comments cued for form, challenging for pt Standing Exercises TKE Side bilateral Resistance level 2 band Reps/Minutes 10x3 ea Comments pain free; cued quad set, improved w/ reps Other Exercises hip flexor stretch Other Exercise Name @ stairs Side bilateral Equipment Used 2nd step on 6 stairs Reps/Minutes 60 ea Comments cued for ppt, form; reports good stretch Manual Therapy Treatment Consent Patient gave verbal consent for manual Yes treatment Soft Tissue Mobilization R knee Body Location quad, hip flexors, calf, HS Mobilization Type Rolling Intensity/Depth Moderate Body Position Supine Comments Distal > proximal, monitored for pain. Restricted L knee Body Location quad, TFL, peripatellar, calf, HS Mobilization Type Rolling Intensity/Depth Moderate Body Position Supine Comments Distal > proximal, monitored for pain. Very restricted Joint Mobilizations R knee Grade III Body Position Supine Comments 1. patellar: superior, medial glides; 1x10 ea 2. tibiofemoral: ant glide to improve ext,2x30 ea L knee Grade III Body Position Supine Comments 1. patellar: superior, medial glides; 1x10 ea 2. tibiofemoral: ant glide to improve ext,2x30 ea PT-OP-T Assessment and Plan Start: 03/29/24 12:54 Freq: Status: Active Protocol: Document 03/31/24 13:02 NM (Rec: 03/31/24 13:44 NM [id number]) Physical Therapy Assessment Goals Four Impairment HEP Short Term Goal (STG) Pt will report compliance with HEP at least 2x/wk in order to maximize progression with PT STG Duration 2 weeks Animal Cop Goal (LTG) Pt will report compliance with HEP at least 3x/wk in order to promote independence upon discharge and maintain progress before surgery LTG Duration 4 weeks Three Impairment ROM- limited into extension B Custodial Goal (LTG) Pt will improve B knee extension AROM to at least 5 deg in order to demonstrate improved terminal extension required for ambulation post- op LTG Duration 4 weeks Two Impairment strength Animal Cop Goal (LTG) Pt will improve his global B knee and hip strength to at least 4+/5 in order to demonstrate increased strength for transfers, mobility when post-op LTG Duration 4 weeks One Impairment SLS impaired Custodial Goal (LTG) Pt will improve SLS to at least 8 seconds on ea leg without LOB or hand support in order to demonstrate improved single leg stability during gait for future ambulation post-op without AD LTG Duration 4 weeks Assessment Summary Assessment Pt tolerated session well. He is pain free with exercise. Good response to soft tissue mobilization and joint mobilizations. Pt's B knee extension improved to 3 above neutral. Initiated hamstring stretching to improve extension. Pt challenged with sidelying hip abduction form, less control demonstrated on L side. PT cued pt for correct execution and form. Pt responds well to standing TKE with band. Pt would benefit from skilled PT for B strengthening and flexibility training in order to improve mobility prior to upcoming surgery. Physical Therapy Plan Frequency and Duration Frequency of Treatment 2x/Week Duration of treatment (weeks) 4 Plan of Care Start Date 03/29/24 Plan of Care End Date 04/28/24 Therapeutic Interventions Therapeutic Interventions Balance Training,Gait Training ,Home Exercise Program,Joint Mobilizations,Manual Therapy, Neuromuscular Re-education, Orthotic/Prosthetic Management ,Patient/Caregiver Education, Self-Care/Home Management, Sensory Integration,Soft Tissue Mobilization,Taping, Therapeutic Activities, Therapeutic Exercises Modalities Cold Pack/Ice Massage,Hot Packs Other Therapeutic Interventions pacemaker, previous joint replacements No grade IV mobilizations due to osteoporosis Next Visit Focus/Plan Next Note Type Treatment Note Next Visit Plan QS, TKE, LAQ, SLR, bridge heel slides, quad and hip flexor stretch, HS stretch final session: education for transfers and gait with AD, stairs post-op Manual tx: STM, mobilizations B knees
--- NOTE | 2024-04-05 16:23 | PT.OTN ---
Current Diagnoses Unilateral primary osteoarthritis, left knee (04/05/24) Pain in right knee (04/05/24) Other lack of coordination (04/05/24) Weakness (04/05/24) Physical Therapy Treatment Note PT-OP-A Visit Information Start: 03/29/24 12:54 Freq: Status: Active Protocol: Document 04/05/24 12:05 AB (Rec: 04/05/24 13:49 AB [id number]) Out-Patient Physical Therapy Visit Information Visit Information Visit Type Treatment Note Visit Start Time 13:02 Visit Stop Time 14:48 Visit Number 3 Number of COMMUNITY RELATIONS LIAISON Visits 1 Evaluation Information Evaluation Date 03/29/24 PT-OP-B Current Condition Start: 03/29/24 12:54 Freq: Status: Active Protocol: Document 03/29/24 13:01 NM (Rec: 03/29/24 13:48 NM [id number]) Current Condition History of Current Condition Onset Date chronic Current Complaints pain, mobility limitations, ROM, strength History of Current Condition Pt is planning to have his L knee replaced in June 06, 2024. He is planning to have the other replaced. Pt presents with B knee pain. He was prescribed PT in preparation for surgery. He reports that the pain wakes him up; usually a side sleeper . He reports difficulty with floor transfers, stairs, downhill, ambulation. 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 He reports that it riri under him when he ambulates. Has not had any fall, but reports balance is off and wobbling. He does not have any AD, does not own one. He has had a previous R TRAVON, B TSA. He has a pacemaker; hx of back surgeries (3 for ruptured discs -15 years) but states only bothers him when lifting weights. He reports that his knee does not limit his ability to golf. He lives in a 2 story home but only has 2 steps, stairs indoor. Treatment Goals Patient/Caregiver Goals whatever will make the doc happy, getting stronger Current Functional Impairments (Reported) Functional Limitations- Mobility/Gait ambulates 3x/wk with men's walking group Functional Limitations- Work/School works on boat Functional Limitations- Recreation/ golfing ea month Hobbies PT-OP-C Subjective Start: 03/29/24 12:54 Freq: Status: Active Protocol: Document 04/05/24 12:05 AB (Rec: 04/05/24 13:49 AB [id number]) OP-PT Subjective Patient Comments Patient Comments Patient reports he had an implant for the tooth and the pain medication relieved the knee pain. Patient reports exercises are going OK. Patient reports pain 6/10 with ascending and descendig stairs. lacking 10 deg ext to 126 deg flexion AROM right knee left knee lacking 7 deg ext to 126 deg flexion start of session. PT-OP-D Balance Start: 03/29/24 12:54 Freq: Status: Active Protocol: Document 03/29/24 13:01 NM (Rec: 03/29/24 13:48 NM [id number]) Balance Tests Single Limb Standing Single Limb- Right 5 seconds Single Limb- Left 4 seconds PT-OP-E Functional Tests Start: 03/29/24 12:54 Freq: Status: Active Protocol: Document 03/29/24 13:01 NM (Rec: 03/29/24 13:48 NM [id number]) Functional Tests 6 Minute Walk Test Distance 1353 ft Device Used none 30 Second Sit to Stand Test Score 10 Comments ext painful Five Times Sit to Stand Test Score 15 sec Comments ext painful PT-OP-F Manual Assessment Start: 03/29/24 12:54 Freq: Status: Active Protocol: Document 03/29/24 13:01 NM (Rec: 03/29/24 13:48 NM [id number]) Manual Assessments Soft Tissue Assessment Soft Tissue Mobility Assessment Increased restrictions of hamstrings, hip flexors, and ITB B (L>R) Joint Mobility Assessment Joint Mobility Assessment crepitus and clicking with PROM and AROM, limited patellar mobility PT-OP-G Mobility & Gait Start: 03/29/24 12:54 Freq: Status: Active Protocol: Document 03/29/24 13:01 NM (Rec: 03/29/24 13:48 NM [id number]) OP Gait Assessment Gait Gait Assistance Required: Standby Assistance Distance (Feet) 1,353 Comments Gait Comments antalgic gait with hip ER on BLE, increased trunk flex with fatigue. Slight trunk flexed posture naturally, wider based gait. One stumble without LOB , able to self correct Stair Climbing Evaluation Technique/Endurance Stair Climbing Direction Ascend and Descend Stair Climbing Technique Step Over Step Number of Steps Climbed 4 Stair Climbing Set # Repetitions (reps) 1 Comments Stair Climbing Comments slight stumble without rail use, close SBA; knee pain with flexion upon descent PT-OP-J Posture/Palpation/Skin Start: 03/29/24 12:54 Freq: Status: Active Protocol: Document 03/29/24 13:01 NM (Rec: 03/29/24 13:48 NM [id number]) Posture Evaluation Position Standing Head/C-Spine Posture Forward Head Pelvis Posture Anteriorly Tilted Weight Distribution Weight Shifted Right Hip Posture (L) Externally Rotated,(R) Externally Rotated Patellar Posture (L) Superior,(R) Superior,(L) Laterally Tilted Palpation Assessment Location B knees Palpation Details tender along B joint lines patella situated superiorly PT-OP-K Range of Motion Start: 03/29/24 12:54 Freq: Status: Active Protocol: Document 03/29/24 13:01 NM (Rec: 03/29/24 13:48 NM [id number]) Knee Goniometric Range of Motion Knee Right Flexion Active (degrees) 127 Flexion Passive (degrees) 130 Extension Active (degrees) 5 Comments 5 deg lacking with quad set Left Flexion Active (degrees) 127 Flexion Passive (degrees) 130 Extension Active (degrees) 10 Comments 5 deg lacking w/ quad set PT-OP-M Strength Start: 03/29/24 12:54 Freq: Status: Active Protocol: Document 03/29/24 13:01 NM (Rec: 03/29/24 13:48 NM [id number]) Hip Strength Hip Manual Muscle Testing Right Flexion (L2) 4 Good Extension (S1) 4 Good Abduction 4- Good- Adduction 4- Good- Left Flexion (L2) 4 Good Extension (S1) 4 Good Abduction 4- Good- Adduction 4- Good- Knee Strength Knee Manual Muscle Testing Right Flexion (S2) 4 Good Extension (L3) 4 Good Left Flexion (S2) 4 Good Extension (L3) 4 Good Comments pain free Ankle/Foot Strength Ankle and Foot Manual Muscle Testing Right Dorsiflexion (L4) 4 Good Plantarflexion (S1) 4 Good Left Dorsiflexion (L4) 4 Good Plantarflexion (S1) 4 Good Comments tested in sitting PT-OP-Q Treatments Start: 03/29/24 12:54 Freq: Status: Active Protocol: Document 04/05/24 12:05 AB (Rec: 04/05/24 13:49 AB [id number]) Therapeutic Exercises Supine Exercises hip and knee ext with band Supine Exercise Name HEP Side bilateral Reps/Minutes X10 SLR Supine Exercise Name HEP Side bilateral Reps/Minutes X10 HS stretch Side bilateral Equipment Used strap at foot Reps/Minutes 2x60 ea Comments cued keep knee extended and lower from hip flex as needed; pain free Standing Exercises mini squat Side bilateral Reps/Minutes 2X15 Comments Pt ed use of self tactile cues for hip hinge, to squat pain free Manual Therapy Treatment Soft Tissue Mobilization R knee Body Location quad peripatellar area HS Mobilization Type Cross-Friction,Rolling Intensity/Depth Moderate Body Position Hooklying L knee Body Location quad peripatellar area HS Mobilization Type Cross-Friction,Rolling Intensity/Depth Moderate Body Position Hooklying Joint Mobilizations R knee Grade III Body Position Supine Comments Pat sup, inf, med, CW and CCW P to A Z10 X 3 L knee Grade III Body Position Supine Comments Pat sup, inf, med, CW and CCW P to A Z10 X 3 PT-OP-T Assessment and Plan Start: 03/29/24 12:54 Freq: Status: Active Protocol: Document 04/05/24 12:05 AB (Rec: 04/05/24 13:49 AB [id number]) Physical Therapy Assessment Goals Four Impairment HEP Short Term Goal (STG) Pt will report compliance with HEP at least 2x/wk in order to maximize progression with PT STG Duration 2 weeks Agency Director Goal (LTG) Pt will report compliance with HEP at least 3x/wk in order to promote independence upon discharge and maintain progress before surgery LTG Duration 4 weeks Three Impairment ROM- limited into extension B Agency Director Goal (LTG) Pt will improve B knee extension AROM to at least 5 deg in order to demonstrate improved terminal extension required for ambulation post- op LTG Duration 4 weeks Two Impairment strength Agency Director Goal (LTG) Pt will improve his global B knee and hip strength to at least 4+/5 in order to demonstrate increased strength for transfers, mobility when post-op LTG Duration 4 weeks One Impairment SLS impaired Agency Director Goal (LTG) Pt will improve SLS to at least 8 seconds on ea leg without LOB or hand support in order to demonstrate improved single leg stability during gait for future ambulation post-op without AD LTG Duration 4 weeks Assessment Summary Assessment Patient able to perform mini squat with good form and reports of no increased pain, and reports having no pain ambulating out of session. Physical Therapy Plan Frequency and Duration Frequency of Treatment 2x/Week Duration of treatment (weeks) 4 Plan of Care Start Date 03/29/24 Plan of Care End Date 04/28/24 Next Visit Focus/Plan Next Note Type Treatment Note Next Visit Plan QS, TKE, LAQ, bridge heel slides, quad and hip flexor stretch, HS stretch final session: education for transfers and gait with AD, stairs post-op 05/04 is final visit. Manual tx: STM, mobilizations B knees
--- NOTE | 2024-04-07 13:44 | PT.OTN ---
Current Diagnoses Unilateral primary osteoarthritis, left knee (04/07/24) Pain in right knee (04/07/24) Other lack of coordination (04/07/24) Weakness (04/07/24) Physical Therapy Treatment Note PT-OP-A Visit Information Start: 03/29/24 12:54 Freq: Status: Active Protocol: Document 04/07/24 13:00 NM (Rec: 04/07/24 13:43 NM [id number]) Out-Patient Physical Therapy Visit Information Visit Information Visit Type Treatment Note Visit Start Time 13:02 Visit Stop Time 13:42 Visit Number 4 Number of THEATER MANAGER Visits 0 Evaluation Information Evaluation Date 03/29/24 Precautions Precautions pacemaker, osteoporosis, high blood pressure, dizziness , TB, memory loss PT-OP-B Current Condition Start: 03/29/24 12:54 Freq: Status: Active Protocol: Document 03/29/24 13:01 NM (Rec: 03/29/24 13:48 NM [id number]) Current Condition History of Current Condition Onset Date chronic Current Complaints pain, mobility limitations, ROM, strength History of Current Condition Pt is planning to have his L knee replaced in June 06, 2024. He is planning to have the other replaced. Pt presents with B knee pain. He was prescribed PT in preparation for surgery. He reports that the pain wakes him up; usually a side sleeper . He reports difficulty with floor transfers, stairs, downhill, ambulation. 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 He reports that it riri under him when he ambulates. Has not had any fall, but reports balance is off and wobbling. He does not have any AD, does not own one. He has had a previous R TRAVON, B TSA. He has a pacemaker; hx of back surgeries (3 for ruptured discs -15 years) but states only bothers him when lifting weights. He reports that his knee does not limit his ability to golf. He lives in a 2 story home but only has 2 steps, stairs indoor. Treatment Goals Patient/Caregiver Goals whatever will make the doc happy, getting stronger Current Functional Impairments (Reported) Functional Limitations- Mobility/Gait ambulates 3x/wk with men's walking group Functional Limitations- Work/School works on boat Functional Limitations- Recreation/ golfing ea month Hobbies PT-OP-C Subjective Start: 03/29/24 12:54 Freq: Status: Active Protocol: Document 04/07/24 13:00 NM (Rec: 04/07/24 13:43 NM [id number]) OP-PT Subjective Patient Comments Patient Comments Pt reports no changes from last session, states pain very mild. States that HEP going well. PT-OP-D Balance Start: 03/29/24 12:54 Freq: Status: Active Protocol: Document 03/29/24 13:01 NM (Rec: 03/29/24 13:48 NM [id number]) Balance Tests Single Limb Standing Single Limb- Right 5 seconds Single Limb- Left 4 seconds PT-OP-E Functional Tests Start: 03/29/24 12:54 Freq: Status: Active Protocol: Document 03/29/24 13:01 NM (Rec: 03/29/24 13:48 NM [id number]) Functional Tests 6 Minute Walk Test Distance 1353 ft Device Used none 30 Second Sit to Stand Test Score 10 Comments ext painful Five Times Sit to Stand Test Score 15 sec Comments ext painful PT-OP-F Manual Assessment Start: 03/29/24 12:54 Freq: Status: Active Protocol: Document 03/29/24 13:01 NM (Rec: 03/29/24 13:48 NM [id number]) Manual Assessments Soft Tissue Assessment Soft Tissue Mobility Assessment Increased restrictions of hamstrings, hip flexors, and ITB B (L>R) Joint Mobility Assessment Joint Mobility Assessment crepitus and clicking with PROM and AROM, limited patellar mobility PT-OP-G Mobility & Gait Start: 03/29/24 12:54 Freq: Status: Active Protocol: Document 03/29/24 13:01 NM (Rec: 03/29/24 13:48 NM [id number]) OP Gait Assessment Gait Gait Assistance Required: Standby Assistance Distance (Feet) 1,353 Comments Gait Comments antalgic gait with hip ER on BLE, increased trunk flex with fatigue. Slight trunk flexed posture naturally, wider based gait. One stumble without LOB , able to self correct Stair Climbing Evaluation Technique/Endurance Stair Climbing Direction Ascend and Descend Stair Climbing Technique Step Over Step Number of Steps Climbed 4 Stair Climbing Set # Repetitions (reps) 1 Comments Stair Climbing Comments slight stumble without rail use, close SBA; knee pain with flexion upon descent PT-OP-J Posture/Palpation/Skin Start: 03/29/24 12:54 Freq: Status: Active Protocol: Document 03/29/24 13:01 NM (Rec: 03/29/24 13:48 NM [id number]) Posture Evaluation Position Standing Head/C-Spine Posture Forward Head Pelvis Posture Anteriorly Tilted Weight Distribution Weight Shifted Right Hip Posture (L) Externally Rotated,(R) Externally Rotated Patellar Posture (L) Superior,(R) Superior,(L) Laterally Tilted Palpation Assessment Location B knees Palpation Details tender along B joint lines patella situated superiorly PT-OP-K Range of Motion Start: 03/29/24 12:54 Freq: Status: Active Protocol: Document 03/29/24 13:01 NM (Rec: 03/29/24 13:48 NM [id number]) Knee Goniometric Range of Motion Knee Right Flexion Active (degrees) 127 Flexion Passive (degrees) 130 Extension Active (degrees) 5 Comments 5 deg lacking with quad set Left Flexion Active (degrees) 127 Flexion Passive (degrees) 130 Extension Active (degrees) 10 Comments 5 deg lacking w/ quad set PT-OP-M Strength Start: 03/29/24 12:54 Freq: Status: Active Protocol: Document 03/29/24 13:01 NM (Rec: 03/29/24 13:48 NM [id number]) Hip Strength Hip Manual Muscle Testing Right Flexion (L2) 4 Good Extension (S1) 4 Good Abduction 4- Good- Adduction 4- Good- Left Flexion (L2) 4 Good Extension (S1) 4 Good Abduction 4- Good- Adduction 4- Good- Knee Strength Knee Manual Muscle Testing Right Flexion (S2) 4 Good Extension (L3) 4 Good Left Flexion (S2) 4 Good Extension (L3) 4 Good Comments pain free Ankle/Foot Strength Ankle and Foot Manual Muscle Testing Right Dorsiflexion (L4) 4 Good Plantarflexion (S1) 4 Good Left Dorsiflexion (L4) 4 Good Plantarflexion (S1) 4 Good Comments tested in sitting PT-OP-Q Treatments Start: 03/29/24 12:54 Freq: Status: Active Protocol: Document 04/07/24 13:00 NM (Rec: 04/07/24 13:43 NM [id number]) Therapeutic Exercises Sitting Exercises LAQ Side bilateral Resistance AROM > level 1 band at ankle Reps/Minutes 2x15x3 hold ea Comments pain free; good TKE but R more limited Standing Exercises side steps Side bilateral Resistance level 2 band at ankles Reps/Minutes 2x30 ft Comments pain free; cued to control trailing leg mini squat Standing Exercise Name cued sit back to table ( elevated plinth) Side bilateral Resistance level 3 band at thighs Reps/Minutes 2x15 Comments tactile cues for hip hinge, verbal cues for upright trunk and no knee valg TKE Side bilateral Resistance level 2 band Reps/Minutes 10x3 ea Comments pain free; cued quad set, improved w/ reps Manual Therapy Treatment Consent Patient gave verbal consent for manual Yes treatment Soft Tissue Mobilization R knee Body Location quad, peripatellar area, HS, TFL Mobilization Type Cross-Friction,Rolling Intensity/Depth Moderate Body Position Hooklying Comments Less restrictions but still tight, monitored for pain L knee Body Location quad, peripatellar area, HS, TFL Mobilization Type Cross-Friction,Rolling Intensity/Depth Moderate Body Position Hooklying Joint Mobilizations R knee Grade III Body Position Supine Comments 1. Patellar sup, inf, med, CW and CCW- 30 ea 2. tibiofemoral: P to A- 3x30 ea L knee Grade III Body Position Supine Comments 1. Patellar sup, inf, med, CW and CCW- 30 ea 2. tibiofemoral: P to A- 3x30 ea Neuro Re-Education Treatment Balance Activities Tandem Details stance time Surface stable Equipment prn hand support for balance Reps/Duration 2x30 ea SLS Surface stable Equipment prn hand support for balance Reps/Duration 2x30 for time PT-OP-T Assessment and Plan Start: 03/29/24 12:54 Freq: Status: Active Protocol: Document 04/07/24 13:00 NM (Rec: 04/07/24 13:43 NM [id number]) Physical Therapy Assessment Goals Four Impairment HEP Short Term Goal (STG) Pt will report compliance with HEP at least 2x/wk in order to maximize progression with PT 04/07/24: pt reports daily compliance with HEP STG Duration 2 weeks MET Correction Goal (LTG) Pt will report compliance with HEP at least 3x/wk in order to promote independence upon discharge and maintain progress before surgery LTG Duration 4 weeks Three Impairment ROM- limited into extension B Analytics Senior Manager Goal (LTG) Pt will improve B knee extension AROM to at least 5 deg in order to demonstrate improved terminal extension required for ambulation post- op LTG Duration 4 weeks Two Impairment strength Correction Goal (LTG) Pt will improve his global B knee and hip strength to at least 4+/5 in order to demonstrate increased strength for transfers, mobility when post-op LTG Duration 4 weeks One Impairment SLS impaired Analytics Senior Manager Goal (LTG) Pt will improve SLS to at least 8 seconds on ea leg without LOB or hand support in order to demonstrate improved single leg stability during gait for future ambulation post-op without AD LTG Duration 4 weeks Assessment Summary Assessment Pt tolerated session well. Progressed to resisted LAQ to promote better quad activation and TKE during gait. Good response to manual treatment, but continues to have B hamstring tightness and limitations in B extension. Added band to minisquat to limit knee valgus with cueing to sit back to elevated plinth to promote better glute activation and hip hinge. Pt responds better to increased glute activation during minisquat and side steps. Challenged with SLS and tandem stance time, more limited on RLE than LLE; requires prn hand support to stabilize. Pt would benefit from skilled PT to promote increased mobility and progressive strenght in B knees to improve activity tolerance and symptom management pre-operatively. Physical Therapy Plan Frequency and Duration Frequency of Treatment 2x/Week Duration of treatment (weeks) 4 Plan of Care Start Date 03/29/24 Plan of Care End Date 04/28/24 Therapeutic Interventions Therapeutic Interventions Balance Training,Gait Training ,Home Exercise Program,Joint Mobilizations,Manual Therapy, Neuromuscular Re-education, Orthotic/Prosthetic Management ,Patient/Caregiver Education, Self-Care/Home Management, Sensory Integration,Soft Tissue Mobilization,Taping, Therapeutic Activities, Therapeutic Exercises Modalities Cold Pack/Ice Massage,Hot Packs Other Therapeutic Interventions pacemaker, previous joint replacements No grade IV mobilizations due to osteoporosis Next Visit Focus/Plan Next Note Type Treatment Note Next Visit Plan LAQ, bridge vs minisquat, side steps, quad and hip flexor stretch, HS stretch. SLS and tandem activities. final session: education for transfers and gait with AD, stairs post-op 05/04 is final visit. Manual tx: STM, mobilizations B knees
--- NOTE | 2024-04-12 13:44 | PT.OTN ---
Current Diagnoses Unilateral primary osteoarthritis, left knee (04/12/24) Pain in right knee (04/12/24) Other lack of coordination (04/12/24) Weakness (04/12/24) Physical Therapy Treatment Note PT-OP-A Visit Information Start: 03/29/24 12:54 Freq: Status: Active Protocol: Document 04/12/24 12:47 NM (Rec: 04/12/24 12:51 NM [id number]) Out-Patient Physical Therapy Visit Information Visit Information Visit Type Treatment Note Visit Start Time 13:00 Visit Stop Time 13:40 Visit Number 5 Evaluation Information Evaluation Date 03/29/24 Precautions Precautions pacemaker, osteoporosis, high blood pressure, dizziness , TB, memory loss PT-OP-B Current Condition Start: 03/29/24 12:54 Freq: Status: Active Protocol: Document 03/29/24 13:01 NM (Rec: 03/29/24 13:48 NM [id number]) Current Condition History of Current Condition Onset Date chronic Current Complaints pain, mobility limitations, ROM, strength History of Current Condition Pt is planning to have his L knee replaced in June 06, 2024. He is planning to have the other replaced. Pt presents with B knee pain. He was prescribed PT in preparation for surgery. He reports that the pain wakes him up; usually a side sleeper . He reports difficulty with floor transfers, stairs, downhill, ambulation. 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 He reports that it riri under him when he ambulates. Has not had any fall, but reports balance is off and wobbling. He does not have any AD, does not own one. He has had a previous R TRAVON, B TSA. He has a pacemaker; hx of back surgeries (3 for ruptured discs -15 years) but states only bothers him when lifting weights. He reports that his knee does not limit his ability to golf. He lives in a 2 story home but only has 2 steps, stairs indoor. Treatment Goals Patient/Caregiver Goals whatever will make the doc happy, getting stronger Current Functional Impairments (Reported) Functional Limitations- Mobility/Gait ambulates 3x/wk with men's walking group Functional Limitations- Work/School works on boat Functional Limitations- Recreation/ golfing ea month Hobbies PT-OP-C Subjective Start: 03/29/24 12:54 Freq: Status: Active Protocol: Document 04/12/24 12:47 NM (Rec: 04/12/24 12:51 NM [id number]) OP-PT Subjective Patient Comments Patient Comments Pt reports that his knees are bothering him after walking down hill. States that he has diffculty and increased discomfort with minisquat. PT-OP-D Balance Start: 03/29/24 12:54 Freq: Status: Active Protocol: Document 03/29/24 13:01 NM (Rec: 03/29/24 13:48 NM [id number]) Balance Tests Single Limb Standing Single Limb- Right 5 seconds Single Limb- Left 4 seconds PT-OP-E Functional Tests Start: 03/29/24 12:54 Freq: Status: Active Protocol: Document 03/29/24 13:01 NM (Rec: 03/29/24 13:48 NM [id number]) Functional Tests 6 Minute Walk Test Distance 1353 ft Device Used none 30 Second Sit to Stand Test Score 10 Comments ext painful Five Times Sit to Stand Test Score 15 sec Comments ext painful PT-OP-F Manual Assessment Start: 03/29/24 12:54 Freq: Status: Active Protocol: Document 03/29/24 13:01 NM (Rec: 03/29/24 13:48 NM [id number]) Manual Assessments Soft Tissue Assessment Soft Tissue Mobility Assessment Increased restrictions of hamstrings, hip flexors, and ITB B (L>R) Joint Mobility Assessment Joint Mobility Assessment crepitus and clicking with PROM and AROM, limited patellar mobility PT-OP-G Mobility & Gait Start: 03/29/24 12:54 Freq: Status: Active Protocol: Document 03/29/24 13:01 NM (Rec: 03/29/24 13:48 NM [id number]) OP Gait Assessment Gait Gait Assistance Required: Standby Assistance Distance (Feet) 1,353 Comments Gait Comments antalgic gait with hip ER on BLE, increased trunk flex with fatigue. Slight trunk flexed posture naturally, wider based gait. One stumble without LOB , able to self correct Stair Climbing Evaluation Technique/Endurance Stair Climbing Direction Ascend and Descend Stair Climbing Technique Step Over Step Number of Steps Climbed 4 Stair Climbing Set # Repetitions (reps) 1 Comments Stair Climbing Comments slight stumble without rail use, close SBA; knee pain with flexion upon descent PT-OP-J Posture/Palpation/Skin Start: 03/29/24 12:54 Freq: Status: Active Protocol: Document 03/29/24 13:01 NM (Rec: 03/29/24 13:48 NM [id number]) Posture Evaluation Position Standing Head/C-Spine Posture Forward Head Pelvis Posture Anteriorly Tilted Weight Distribution Weight Shifted Right Hip Posture (L) Externally Rotated,(R) Externally Rotated Patellar Posture (L) Superior,(R) Superior,(L) Laterally Tilted Palpation Assessment Location B knees Palpation Details tender along B joint lines patella situated superiorly PT-OP-K Range of Motion Start: 03/29/24 12:54 Freq: Status: Active Protocol: Document 03/29/24 13:01 NM (Rec: 03/29/24 13:48 NM [id number]) Knee Goniometric Range of Motion Knee Right Flexion Active (degrees) 127 Flexion Passive (degrees) 130 Extension Active (degrees) 5 Comments 5 deg lacking with quad set Left Flexion Active (degrees) 127 Flexion Passive (degrees) 130 Extension Active (degrees) 10 Comments 5 deg lacking w/ quad set PT-OP-M Strength Start: 03/29/24 12:54 Freq: Status: Active Protocol: Document 03/29/24 13:01 NM (Rec: 03/29/24 13:48 NM [id number]) Hip Strength Hip Manual Muscle Testing Right Flexion (L2) 4 Good Extension (S1) 4 Good Abduction 4- Good- Adduction 4- Good- Left Flexion (L2) 4 Good Extension (S1) 4 Good Abduction 4- Good- Adduction 4- Good- Knee Strength Knee Manual Muscle Testing Right Flexion (S2) 4 Good Extension (L3) 4 Good Left Flexion (S2) 4 Good Extension (L3) 4 Good Comments pain free Ankle/Foot Strength Ankle and Foot Manual Muscle Testing Right Dorsiflexion (L4) 4 Good Plantarflexion (S1) 4 Good Left Dorsiflexion (L4) 4 Good Plantarflexion (S1) 4 Good Comments tested in sitting PT-OP-Q Treatments Start: 03/29/24 12:54 Freq: Status: Active Protocol: Document 04/12/24 12:47 NM (Rec: 04/12/24 12:51 NM [id number]) Cardio Equipment Bicycle (Upright) Duration (Minutes) 4 Resistance 10 Seat Position 4 Other warm up; no pain with biking Therapeutic Exercises Sitting Exercises HSC Side bilateral Resistance level 2 band at ankles Reps/Minutes 3x10 with 3 hold ea Comments pain free LAQ Side bilateral Resistance level 2 band at ankles Reps/Minutes 3x10 with 3 hold Comments pain free; good TKE Standing Exercises monster walk Standing Exercise Name fwd and retro Side bilateral Resistance level 3 band just below knees Reps/Minutes 2x20 ft Comments pain free side steps Side bilateral Resistance level 3 band at just below knees Reps/Minutes 2x20 ft Comments pain free; cued to control trailing leg mini squat Standing Exercise Name cued sit back to pillows on elevated plinth Side bilateral Resistance level 3 band at thighs Equipment Used with hand support on stairs Reps/Minutes 2x15 Comments tactile cues for hip hinge, verbal cues for upright trunk and no knee valg Neuro Re-Education Treatment Balance Activities step taps Surface stable Equipment close SBA Comments 1. alternating on 8 step, 30 taps ea foot 2. alternating double taps on 8 step, 15 ea leg hurdles Details close SBA Reps/Duration 3 hurdles x 5 reps Comments 1. fwd reciprocal 2. lateral cued heel strike, tall posture , no circumduction SLS Details close SBA Surface stable Comments 1. SLS 2x30 ea on stable with prn 1 finger support 2. SLS with head turns, 10 horizontal turns ea side (ea leg) 3. SLS with vertical nods, 10 ea side (ea leg) 4. SLS while kicking ball, 10 ea leg PT-OP-T Assessment and Plan Start: 03/29/24 12:54 Freq: Status: Active Protocol: Document 04/12/24 12:47 NM (Rec: 04/12/24 12:51 NM [id number]) Physical Therapy Assessment Goals Four Impairment HEP Short Term Goal (STG) Pt will report compliance with HEP at least 2x/wk in order to maximize progression with PT 04/07/24: pt reports daily compliance with HEP STG Duration 2 weeks MET Field Operations Farm Manager Goal (LTG) Pt will report compliance with HEP at least 3x/wk in order to promote independence upon discharge and maintain progress before surgery LTG Duration 4 weeks Three Impairment ROM- limited into extension B Field Operations Farm Manager Goal (LTG) Pt will improve B knee extension AROM to at least 5 deg in order to demonstrate improved terminal extension required for ambulation post- op LTG Duration 4 weeks Two Impairment strength Retirement Goal (LTG) Pt will improve his global B knee and hip strength to at least 4+/5 in order to demonstrate increased strength for transfers, mobility when post-op LTG Duration 4 weeks One Impairment SLS impaired Field Operations Farm Manager Goal (LTG) Pt will improve SLS to at least 8 seconds on ea leg without LOB or hand support in order to demonstrate improved single leg stability during gait for future ambulation post-op without AD LTG Duration 4 weeks Assessment Summary Assessment Pt tolerated session well. Demonstrates fewer instances of requiring 1 finger support during SLS. Able to maintain good SLS balance during alternating taps on stairs or with kicking ball to similate higher level SLS during ambulation and reactionary balance. Progressed resistance band during LAQ. Good feedback for appropriate glute activation during resisted side steps and monster walks. Pt would benefit from skilled PT for B knee flexibility and strengthening in order to improve activity tolerance and symptom management. Physical Therapy Plan Frequency and Duration Frequency of Treatment 2x/Week Duration of treatment (weeks) 4 Plan of Care Start Date 03/29/24 Plan of Care End Date 04/28/24 Therapeutic Interventions Therapeutic Interventions Balance Training,Gait Training ,Home Exercise Program,Joint Mobilizations,Manual Therapy, Neuromuscular Re-education, Orthotic/Prosthetic Management ,Patient/Caregiver Education, Self-Care/Home Management, Sensory Integration,Soft Tissue Mobilization,Taping, Therapeutic Activities, Therapeutic Exercises Modalities Cold Pack/Ice Massage,Hot Packs Other Therapeutic Interventions pacemaker, previous joint replacements No grade IV mobilizations due to osteoporosis Next Visit Focus/Plan Next Note Type Treatment Note Next Visit Plan LAQ, wall squat vs leg press, hip 3 way, quad and hip flexor stretch, HS stretch. SLS and tandem activities. Balance activities, HS length final session: education for transfers and gait with AD, stairs post-op 05/04 is final visit. Manual tx: STM, mobilizations B knees Last visit on 04/27
--- NOTE | 2024-04-19 15:19 | PT.OTN ---
Current Diagnoses Unilateral primary osteoarthritis, left knee (04/19/24) Pain in right knee (04/19/24) Other lack of coordination (04/19/24) Weakness (04/19/24) Physical Therapy Treatment Note PT-OP-A Visit Information Start: 03/29/24 12:54 Freq: Status: Active Protocol: Document 04/19/24 14:26 NM (Rec: 04/19/24 15:19 NM [id number]) Out-Patient Physical Therapy Visit Information Visit Information Visit Type Treatment Note Visit Start Time 14:30 Visit Stop Time 15:10 Visit Number 6 Evaluation Information Evaluation Date 03/29/24 Precautions Precautions pacemaker, osteoporosis, high blood pressure, dizziness , TB, memory loss PT-OP-B Current Condition Start: 03/29/24 12:54 Freq: Status: Active Protocol: Document 03/29/24 13:01 NM (Rec: 03/29/24 13:48 NM [id number]) Current Condition History of Current Condition Onset Date chronic Current Complaints pain, mobility limitations, ROM, strength History of Current Condition Pt is planning to have his L knee replaced in June 06, 2024. He is planning to have the other replaced. Pt presents with B knee pain. He was prescribed PT in preparation for surgery. He reports that the pain wakes him up; usually a side sleeper . He reports difficulty with floor transfers, stairs, downhill, ambulation. 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 He reports that it riri under him when he ambulates. Has not had any fall, but reports balance is off and wobbling. He does not have any AD, does not own one. He has had a previous R TRAVON, B TSA. He has a pacemaker; hx of back surgeries (3 for ruptured discs -15 years) but states only bothers him when lifting weights. He reports that his knee does not limit his ability to golf. He lives in a 2 story home but only has 2 steps, stairs indoor. Treatment Goals Patient/Caregiver Goals whatever will make the doc happy, getting stronger Current Functional Impairments (Reported) Functional Limitations- Mobility/Gait ambulates 3x/wk with men's walking group Functional Limitations- Work/School works on boat Functional Limitations- Recreation/ golfing ea month Hobbies PT-OP-C Subjective Start: 03/29/24 12:54 Freq: Status: Active Protocol: Document 04/19/24 14:26 NM (Rec: 04/19/24 15:19 NM [id number]) OP-PT Subjective Patient Comments Patient Comments Pt reports that he did not do his exercises because lots of company over the weekend. Knees are a little sore, especially when doing a little squat PT-OP-D Balance Start: 03/29/24 12:54 Freq: Status: Active Protocol: Document 03/29/24 13:01 NM (Rec: 03/29/24 13:48 NM [id number]) Balance Tests Single Limb Standing Single Limb- Right 5 seconds Single Limb- Left 4 seconds PT-OP-E Functional Tests Start: 03/29/24 12:54 Freq: Status: Active Protocol: Document 03/29/24 13:01 NM (Rec: 03/29/24 13:48 NM [id number]) Functional Tests 6 Minute Walk Test Distance 1353 ft Device Used none 30 Second Sit to Stand Test Score 10 Comments ext painful Five Times Sit to Stand Test Score 15 sec Comments ext painful PT-OP-F Manual Assessment Start: 03/29/24 12:54 Freq: Status: Active Protocol: Document 03/29/24 13:01 NM (Rec: 03/29/24 13:48 NM [id number]) Manual Assessments Soft Tissue Assessment Soft Tissue Mobility Assessment Increased restrictions of hamstrings, hip flexors, and ITB B (L>R) Joint Mobility Assessment Joint Mobility Assessment crepitus and clicking with PROM and AROM, limited patellar mobility PT-OP-G Mobility & Gait Start: 03/29/24 12:54 Freq: Status: Active Protocol: Document 03/29/24 13:01 NM (Rec: 03/29/24 13:48 NM [id number]) OP Gait Assessment Gait Gait Assistance Required: Standby Assistance Distance (Feet) 1,353 Comments Gait Comments antalgic gait with hip ER on BLE, increased trunk flex with fatigue. Slight trunk flexed posture naturally, wider based gait. One stumble without LOB , able to self correct Stair Climbing Evaluation Technique/Endurance Stair Climbing Direction Ascend and Descend Stair Climbing Technique Step Over Step Number of Steps Climbed 4 Stair Climbing Set # Repetitions (reps) 1 Comments Stair Climbing Comments slight stumble without rail use, close SBA; knee pain with flexion upon descent PT-OP-J Posture/Palpation/Skin Start: 03/29/24 12:54 Freq: Status: Active Protocol: Document 03/29/24 13:01 NM (Rec: 03/29/24 13:48 NM [id number]) Posture Evaluation Position Standing Head/C-Spine Posture Forward Head Pelvis Posture Anteriorly Tilted Weight Distribution Weight Shifted Right Hip Posture (L) Externally Rotated,(R) Externally Rotated Patellar Posture (L) Superior,(R) Superior,(L) Laterally Tilted Palpation Assessment Location B knees Palpation Details tender along B joint lines patella situated superiorly PT-OP-K Range of Motion Start: 03/29/24 12:54 Freq: Status: Active Protocol: Document 03/29/24 13:01 NM (Rec: 03/29/24 13:48 NM [id number]) Knee Goniometric Range of Motion Knee Right Flexion Active (degrees) 127 Flexion Passive (degrees) 130 Extension Active (degrees) 5 Comments 5 deg lacking with quad set Left Flexion Active (degrees) 127 Flexion Passive (degrees) 130 Extension Active (degrees) 10 Comments 5 deg lacking w/ quad set PT-OP-M Strength Start: 03/29/24 12:54 Freq: Status: Active Protocol: Document 03/29/24 13:01 NM (Rec: 03/29/24 13:48 NM [id number]) Hip Strength Hip Manual Muscle Testing Right Flexion (L2) 4 Good Extension (S1) 4 Good Abduction 4- Good- Adduction 4- Good- Left Flexion (L2) 4 Good Extension (S1) 4 Good Abduction 4- Good- Adduction 4- Good- Knee Strength Knee Manual Muscle Testing Right Flexion (S2) 4 Good Extension (L3) 4 Good Left Flexion (S2) 4 Good Extension (L3) 4 Good Comments pain free Ankle/Foot Strength Ankle and Foot Manual Muscle Testing Right Dorsiflexion (L4) 4 Good Plantarflexion (S1) 4 Good Left Dorsiflexion (L4) 4 Good Plantarflexion (S1) 4 Good Comments tested in sitting PT-OP-Q Treatments Start: 03/29/24 12:54 Freq: Status: Active Protocol: Document 04/19/24 14:26 NM (Rec: 04/19/24 15:19 NM [id number]) Cardio Equipment Bicycle (Upright) Duration (Minutes) 4 Resistance 10 Seat Position 4 Other warm up; no pain Therapeutic Exercises Standing Exercises glute medius activation Standing Exercise Name 1. isometric at wall, 2. standing clam Side bilateral Resistance level 2 band at thighs Reps/Minutes 1. 2x10, 2. 15 ea side Comments challenging at wall hip 3 way Standing Exercise Name hip flex, abd, ext Side bilateral Resistance level 1 band at ankle Equipment Used slider under foot, mirror Reps/Minutes 2x15 ea direction Comments mirror for visual cue to limit trunk comp as fatigue Other Exercises stretching Other Exercise Name 1. gastrocnemius, 2. soleus, 3 . hamstring Side bilateral Equipment Used at stairs (deficit calf stretch) Reps/Minutes 1. and 2. 2x30 ea, 3. 60 ea Comments pain free hip flexor stretch Side bilateral Equipment Used 4 step Reps/Minutes 60 ea Comments pain free Manual Therapy Treatment Consent Patient gave verbal consent for manual Yes treatment Soft Tissue Mobilization R knee Body Location quad, peripatellar area, HS, TFL Mobilization Type Cross-Friction,Rolling Intensity/Depth Moderate Body Position Hooklying Comments Less restrictions but still tight, monitored for pain Joint Mobilizations R knee Grade III Body Position Supine Comments 1. Patellar sup, inf, med, CW and CCW- 30 ea 2. tibiofemoral: P to A- 4x30 ea L knee Grade III Body Position Supine Comments 1. Patellar sup, inf, med, CW and CCW- 30 ea 2. tibiofemoral: P to A- 4x30 ea PT-OP-T Assessment and Plan Start: 03/29/24 12:54 Freq: Status: Active Protocol: Document 04/19/24 14:26 NM (Rec: 04/19/24 15:19 NM [id number]) Physical Therapy Assessment Goals Four Impairment HEP Short Term Goal (STG) Pt will report compliance with HEP at least 2x/wk in order to maximize progression with PT 04/07/24: pt reports daily compliance with HEP STG Duration 2 weeks MET Grounds Worker Goal (LTG) Pt will report compliance with HEP at least 3x/wk in order to promote independence upon discharge and maintain progress before surgery LTG Duration 4 weeks Three Impairment ROM- limited into extension B Usp Goal (LTG) Pt will improve B knee extension AROM to at least 5 deg in order to demonstrate improved terminal extension required for ambulation post- op 04/19/24: lacking 3 deg R, 2 deg L; 0 deg with active extension LTG Duration 4 weeks MET Two Impairment strength Usp Goal (LTG) Pt will improve his global B knee and hip strength to at least 4+/5 in order to demonstrate increased strength for transfers, mobility when post-op LTG Duration 4 weeks One Impairment SLS impaired Usp Goal (LTG) Pt will improve SLS to at least 8 seconds on ea leg without LOB or hand support in order to demonstrate improved single leg stability during gait for future ambulation post-op without AD 04/19/24: 15 sec on L, 20 sec on R without hand support LTG Duration 4 weeks MET Progress Towards Goals Progress Towards Goals Progressing Toward Goals Assessment Summary Assessment Pt tolerated session well without any increase in R knee pain. Trialed hip 3 way using slider and resistance band to promote single leg glute/quad stability. Able to progress to second set, form improved with mirror for visual feedback. Continued with flexibility training to promote better muscle length and promote improved ROM during gait/stance. Challenged with stanidng clam and glute medius isometric. Pt met SLS time goal and knee extension AROM goals. Pt would benefit from skilled PT for progressive BLE strengthening in order to improve functional mobility for transfers and gait post-operatively. Physical Therapy Plan Frequency and Duration Frequency of Treatment 2x/Week Duration of treatment (weeks) 4 Plan of Care Start Date 03/29/24 Plan of Care End Date 04/28/24 Therapeutic Interventions Therapeutic Interventions Balance Training,Gait Training ,Home Exercise Program,Joint Mobilizations,Manual Therapy, Neuromuscular Re-education, Orthotic/Prosthetic Management ,Patient/Caregiver Education, Self-Care/Home Management, Sensory Integration,Soft Tissue Mobilization,Taping, Therapeutic Activities, Therapeutic Exercises Modalities Cold Pack/Ice Massage,Hot Packs Other Therapeutic Interventions pacemaker, previous joint replacements No grade IV mobilizations due to osteoporosis Next Visit Focus/Plan Next Note Type Discharge Summary Next Visit Plan maintenance HEP LAQ, wall squat vs leg press, hip 3 way, quad and hip flexor stretch, HS stretch. SLS and tandem activities. Balance activities, HS length final session: education for transfers and gait with AD, stairs post-op 05/04 is final visit. Manual tx: STM, mobilizations B knees Last visit on 04/27
--- NOTE | 2024-04-27 09:45 | PT.OTN ---
Current Diagnoses Unilateral primary osteoarthritis, left knee (04/27/24) Pain in right knee (04/27/24) Other lack of coordination (04/27/24) Weakness (04/27/24) Physical Therapy Treatment Note PT-OP-A Visit Information Start: 03/29/24 12:54 Freq: Status: Active Protocol: Document 04/27/24 08:59 NM (Rec: 04/27/24 09:44 NM [id number]) Out-Patient Physical Therapy Visit Information Visit Information Visit Type Discharge Summary Visit Start Time 09:01 Visit Stop Time 09:41 Visit Number 7 Evaluation Information Evaluation Date 03/29/24 Precautions Precautions pacemaker, osteoporosis, high blood pressure, dizziness , TB, memory loss PT-OP-B Current Condition Start: 03/29/24 12:54 Freq: Status: Active Protocol: Document 03/29/24 13:01 NM (Rec: 03/29/24 13:48 NM [id number]) Current Condition History of Current Condition Onset Date chronic Current Complaints pain, mobility limitations, ROM, strength History of Current Condition Pt is planning to have his L knee replaced in June 06, 2024. He is planning to have the other replaced. Pt presents with B knee pain. He was prescribed PT in preparation for surgery. He reports that the pain wakes him up; usually a side sleeper . He reports difficulty with floor transfers, stairs, downhill, ambulation. 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 He reports that it riri under him when he ambulates. Has not had any fall, but reports balance is off and wobbling. He does not have any AD, does not own one. He has had a previous R TRAVON, B TSA. He has a pacemaker; hx of back surgeries (3 for ruptured discs -15 years) but states only bothers him when lifting weights. He reports that his knee does not limit his ability to golf. He lives in a 2 story home but only has 2 steps, stairs indoor. Treatment Goals Patient/Caregiver Goals whatever will make the doc happy, getting stronger Current Functional Impairments (Reported) Functional Limitations- Mobility/Gait ambulates 3x/wk with men's walking group Functional Limitations- Work/School works on boat Functional Limitations- Recreation/ golfing ea month Hobbies PT-OP-C Subjective Start: 03/29/24 12:54 Freq: Status: Active Protocol: Document 04/27/24 08:59 NM (Rec: 04/27/24 09:44 NM [id number]) OP-PT Subjective Patient Comments Patient Comments Pt reports doing well, no changes since last session. Ready to discharge today in prep for surgery. He has check in on 05/31, then surgery on 06/05. PT-OP-D Balance Start: 03/29/24 12:54 Freq: Status: Active Protocol: Document 03/29/24 13:01 NM (Rec: 03/29/24 13:48 NM [id number]) Balance Tests Single Limb Standing Single Limb- Right 5 seconds Single Limb- Left 4 seconds PT-OP-E Functional Tests Start: 03/29/24 12:54 Freq: Status: Active Protocol: Document 03/29/24 13:01 NM (Rec: 03/29/24 13:48 NM [id number]) Functional Tests 6 Minute Walk Test Distance 1353 ft Device Used none 30 Second Sit to Stand Test Score 10 Comments ext painful Five Times Sit to Stand Test Score 15 sec Comments ext painful PT-OP-F Manual Assessment Start: 03/29/24 12:54 Freq: Status: Active Protocol: Document 03/29/24 13:01 NM (Rec: 03/29/24 13:48 NM [id number]) Manual Assessments Soft Tissue Assessment Soft Tissue Mobility Assessment Increased restrictions of hamstrings, hip flexors, and ITB B (L>R) Joint Mobility Assessment Joint Mobility Assessment crepitus and clicking with PROM and AROM, limited patellar mobility PT-OP-G Mobility & Gait Start: 03/29/24 12:54 Freq: Status: Active Protocol: Document 03/29/24 13:01 NM (Rec: 03/29/24 13:48 NM [id number]) OP Gait Assessment Gait Gait Assistance Required: Standby Assistance Distance (Feet) 1,353 Comments Gait Comments antalgic gait with hip ER on BLE, increased trunk flex with fatigue. Slight trunk flexed posture naturally, wider based gait. One stumble without LOB , able to self correct Stair Climbing Evaluation Technique/Endurance Stair Climbing Direction Ascend and Descend Stair Climbing Technique Step Over Step Number of Steps Climbed 4 Stair Climbing Set # Repetitions (reps) 1 Comments Stair Climbing Comments slight stumble without rail use, close SBA; knee pain with flexion upon descent PT-OP-J Posture/Palpation/Skin Start: 03/29/24 12:54 Freq: Status: Active Protocol: Document 03/29/24 13:01 NM (Rec: 03/29/24 13:48 NM [id number]) Posture Evaluation Position Standing Head/C-Spine Posture Forward Head Pelvis Posture Anteriorly Tilted Weight Distribution Weight Shifted Right Hip Posture (L) Externally Rotated,(R) Externally Rotated Patellar Posture (L) Superior,(R) Superior,(L) Laterally Tilted Palpation Assessment Location B knees Palpation Details tender along B joint lines patella situated superiorly PT-OP-K Range of Motion Start: 03/29/24 12:54 Freq: Status: Active Protocol: Document 04/27/24 08:59 NM (Rec: 04/27/24 09:44 NM [id number]) Knee Goniometric Range of Motion Knee Right Flexion Active (degrees) 130 Extension Active (degrees) 2 Comments 5 deg lacking with quad set 04/27/24: lackign 2 deg ext Left Flexion Active (degrees) 130 Extension Active (degrees) 3 Comments 5 deg lacking w/ quad set 04/27/24: lacking 3 deg PT-OP-M Strength Start: 03/29/24 12:54 Freq: Status: Active Protocol: Document 04/27/24 08:59 NM (Rec: 04/27/24 09:44 NM [id number]) Hip Strength Hip Manual Muscle Testing Right Flexion (L2) 4+ Good+ Extension (S1) 4+ Good+ Abduction 4+ Good+ Adduction 4+ Good+ Left Flexion (L2) 4+ Good+ Extension (S1) 4 Good Abduction 4+ Good+ Adduction 4+ Good+ Knee Strength Knee Manual Muscle Testing Right Flexion (S2) 4+ Good+ Extension (L3) 4+ Good+ Left Flexion (S2) 4+ Good+ Extension (L3) 4+ Good+ Comments pain free PT-OP-Q Treatments Start: 03/29/24 12:54 Freq: Status: Active Protocol: Document 04/27/24 08:59 NM (Rec: 04/27/24 09:44 NM [id number]) Therapeutic Exercises Supine Exercises SLR Side bilateral Reps/Minutes 10 ea Comments cued controlled lower entire time HS stretch Side bilateral Equipment Used strap at foot Reps/Minutes 60 ea Comments improved ROM Sidelying Exercises hip abduction Sidelying Exercise Name with hip IR and DF Side bilateral Equipment Used pillow btwn legs for comfort Reps/Minutes 2x10 ea Comments cued for form, challenging for pt still but pain free Sitting Exercises LAQ Side bilateral Resistance level 2 band at ankles Reps/Minutes 15 with 3 hold Comments pain free; good TKE Standing Exercises hip 3 way Standing Exercise Name hip flex, abd, ext Side bilateral Resistance level 2 band at ankle Equipment Used slider under foot, mirror Reps/Minutes 20 ea direction TKE Side bilateral Resistance level 3 band Reps/Minutes 20x5 ea Comments pain free; cued quad set, improved w/ reps Manual Therapy Treatment Consent Patient gave verbal consent for manual Yes treatment Soft Tissue Mobilization R knee Body Location quad, peripatellar area, HS, TFL Mobilization Type Cross-Friction,Rolling Intensity/Depth Moderate Body Position Hooklying Comments Mild restrictions of distal hamstring. Reduced with soft tissue mobilization, palpable relaxation. Monitored for pain L knee Body Location quad, peripatellar area, HS, TFL Mobilization Type Cross-Friction,Rolling Intensity/Depth Moderate Body Position Hooklying Comments Mild restrictions of distal hamstring, slight tenderness behind knee. Reduced with soft tissue mobilization, palpable relaxation. Monitored for pain PT-OP-T Assessment and Plan Start: 03/29/24 12:54 Freq: Status: Active Protocol: Document 04/27/24 08:59 NM (Rec: 04/27/24 09:44 NM [id number]) Physical Therapy Assessment Goals Four Impairment HEP Short Term Goal (STG) Pt will report compliance with HEP at least 2x/wk in order to maximize progression with PT 04/07/24: pt reports daily compliance with HEP STG Duration 2 weeks MET Associate Director Regulatory Affairs Goal (LTG) Pt will report compliance with HEP at least 3x/wk in order to promote independence upon discharge and maintain progress before surgery 04/27/24: every other day LTG Duration 4 weeks MET Three Impairment ROM- limited into extension B Longterm Goal (LTG) Pt will improve B knee extension AROM to at least 5 deg in order to demonstrate improved terminal extension required for ambulation post- op 04/19/24: lacking 3 deg R, 2 deg L; 0 deg with active extension LTG Duration 4 weeks MET Two Impairment strength Longterm Goal (LTG) Pt will improve his global B knee and hip strength to at least 4+/5 in order to demonstrate increased strength for transfers, mobility when post-op 04/27/24: 4+/5 LTG Duration 4 weeks MET One Impairment SLS impaired Longterm Goal (LTG) Pt will improve SLS to at least 8 seconds on ea leg without LOB or hand support in order to demonstrate improved single leg stability during gait for future ambulation post-op without AD 04/19/24: 15 sec on L, 20 sec on R without hand support LTG Duration 4 weeks MET Assessment Summary Assessment Pt tolerated session well. Emphasis on establishing maintenance strengthening and mobility program for pt in preparation for upcoming knee surgery. Pt requires cues only for form occasionally, no pain with exercise. Exhibits improved trunk and quad control with hip 3 way, able to progress band. Good feedback and tolerance for TKE with increased resistance band. Demonstrates improvements in terminal knee extension and flexion AROM. Pt has tenderness and increased restrictions of L distal hamstring today, reduced with soft tissue mobilization. Physical Therapy Plan Frequency and Duration Frequency of Treatment 2x/Week Duration of treatment (weeks) 4 Plan of Care Start Date 03/29/24 Plan of Care End Date 04/28/24 Therapeutic Interventions Therapeutic Interventions Balance Training,Gait Training ,Home Exercise Program,Joint Mobilizations,Manual Therapy, Neuromuscular Re-education, Orthotic/Prosthetic Management ,Patient/Caregiver Education, Self-Care/Home Management, Sensory Integration,Soft Tissue Mobilization,Taping, Therapeutic Activities, Therapeutic Exercises Modalities Cold Pack/Ice Massage,Hot Packs Other Therapeutic Interventions pacemaker, previous joint replacements No grade IV mobilizations due to osteoporosis Discharge Physical Therapy Discharge Reasons Goals Met Discharge Comments Pt planning to go on vacation for several weeks. Has met all PT goals and is ready to discharge to maintenance program in prep for upcoming surgery Next Visit Focus/Plan Next Note Type Discharge Summary Next Visit Plan discharge
== END 2024-05-02 14:19 | disposition home or self-care (01) ==
LOC: PHYS 09:00
PROVIDERS: Family Provider Internal Medicine; PCP Internal Medicine; Referring Provider Orthopaedic Surgery; Visit Provider Orthopaedic Surgery
DX: M17.12 Unilateral primary osteoarthritis, left knee (principal); M25.561 Pain in right knee; R53.1 Weakness; R27.8 Other lack of coordination
CPT/HCPCS: 97110; 97112; 97140; 97162

== ENCOUNTER → 2024-05-04 11:17 | Outpatient (CLI) | payer MEDICARE, SELFPAY ==
[2024-05-04 12:15] LABS: Hematocrit 43.6 % (41-53); Hemoglobin 14.3 g/dL (13.5-17.5); Mean Corpuscular HGB Conc 32.9 % (30-36); Mean Corpuscular Hemoglobin 29.8 PG (26-34); Mean Corpuscular Volume 90.7 fL (80-100); Platelet Count 266 X10^3/uL (150-400); Red Blood Cell Count 4.81 X10^6/uL (4.5-5.9); White Blood Cell Count 6.9 X10^3/uL (4.5-11.0)
[2024-05-04 12:41] LABS: Hemoglobin A1C% w Est Avg Glu 5.1 % (4.0-6.0)
[2024-05-04 12:46] LABS: Alanine Aminotransferase 27 IU/L (<50); Albumin 4.3 g/dL (3.5-5.0); Albumin Globulin Ratio 1.3 (1.0-2.8); Alkaline Phosphatase 74 U/L (38-126); Aspartate Aminotransferase 28 IU/L (17-59); Bilirubin Total 0.7 mg/dL (0.2-1.3); Blood Urea Nitrogen 18 mg/dL (9-20); Calcium 9.7 mg/dL (8.4-10.2); Carbon Dioxide 27 mmol/L (22-32); Chloride 104 mmol/L (98-107); Cholesterol 129 mg/dL (140-199); Estimated Glomerular Filt Rate > 60 mL/min (>60); Globulin 3.4 g/dL (1.7-4.1); Glucose 96 mg/dL (80-110); HDL Cholesterol 43 mg/dL (40-60); HEMOLYSIS < 15 (0-50); LDL Cholesterol Calculated 58 mg/dL (<100); Potassium 4.6 mmol/L (3.4-5.1); Sodium 139 mmol/L (137-145); Total Protein 7.7 g/dL (6.3-8.2); Triglycerides 142 mg/dL (35-150)
[2024-05-04 13:59] LABS: Appearance Urine UA CLEAR; Bilirubin Urine UA NEGATIVE (NEGATIVE); Color Urine UA YELLOW; Glucose Urine UA NEGATIVE (Negative); Ketones Urine UA NEGATIVE (NEGATIVE); Leukocyte Esterase Urine UA NEGATIVE (NEGATIVE); Nitrite Urine UA NEGATIVE (Negative); Occult Blood Urine UA NEGATIVE (Negative); Protein Urine UA NEGATIVE (Negative); pH Urine UA 5.5 (4.5-8.0)
[2024-05-04 14:26] LABS: Bacteria Urine None Seen; Mucus Urine 1+ (Negative); RBC Urine None Seen (0-5/HPF); Squamous Epithelial Cell Urine None Seen (0-5/HPF); Urine Volume 10mL (spun); WBC Urine 0-1/HPF (0-5/HPF)
[2024-05-04 14:27] LABS: Culture Indicated Urine Cult Not Indicated
== END ==
PROVIDERS: Family Provider Internal Medicine; PCP Internal Medicine; Referring Provider Internal Medicine; Visit Provider Internal Medicine
DX: Z01.818 Encounter for other preprocedural examination (principal); I25.10 Atherosclerotic heart disease of native coronary artery without angina pectoris; I67.9 Cerebrovascular disease, unspecified; I10 Essential (primary) hypertension; E78.2 Mixed hyperlipidemia
CPT/HCPCS: 36415; 80053; 80061; 81001; 83036; 85027

== ENCOUNTER 2024-08-02 09:00 | Outpatient (RCR) | payer MEDICARE, SELFPAY ==
--- NOTE | 2024-06-13 13:36 | PT.OIE ---
Current Diagnoses Unilateral primary osteoarthritis, left knee (06/13/24) Past Medical History (Last Reviewed 12/14/23 @ 10:10 by Edward Zaragoza MD) Benign essential tremor Bilateral hearing loss Cerebrovascular disease Coronary artery disease Erectile dysfunction Essential hypertension Fractures (~1968) Gastric ulcer Hearing loss History of colonic polyps Mixed hyperlipidemia Overweight Pacemaker Primary osteoarthritis involving multiple joints Sick sinus syndrome SVT (supraventricular tachycardia) Transient global amnesia Tuberculosis (~1953) Wears glasses Past Surgical History (Last Reviewed 12/14/23 @ 10:10 by Edward Zaragoza MD) Anesthesia History of back surgery History of cholecystectomy (~03/2016) 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/19) History of right shoulder replacement (~2014) Visit Care Team Role Provider Type Asael Carrington MD Family Provider Physician Primary Care Provider Specialty: Internal Medicine Address: [address] [place] [address], [facility] Email: [email or web address] Ricardo Roy MD Attending Provider Non-Staff Referring Provider Specialty: Medical Address: [address] [place] [address], [phone] Email: Physical Therapy Initial Evaluation PT-OP-A Visit Information Start: 06/08/24 13:05 Freq: Status: Active Protocol: Document 06/13/24 08:56 MB (Rec: 06/13/24 09:46 MB [id number]) Out-Patient Physical Therapy Visit Information Visit Information Visit Type Initial Evaluation Visit Note [facility] Medicare Progress note by 07/14/24 , Anneliese, attends eval Visit Start Time 08:56 Visit Stop Time 09:34 Visit Number 1 Number of STATE PILOT Visits 0 Evaluation Information Evaluation Date 06/13/24 Precautions Precautions Pt is on 325 mg aspirin twice a day and pt is on blood thinner PT-OP-B Current Condition Start: 06/08/24 13:05 Freq: Status: Active Protocol: Document 06/13/24 08:56 MB (Rec: 06/13/24 09:46 MB [id number]) Current Condition History of Current Condition Onset Date L TKA 06/06/24 Current Complaints General unsteadiness History of Current Condition Pt reports since surgery, he has a general unsteadiness. He initially has pain of 8/10 with standing and the pain decreases to 3/10 once he is up standing. His left leg feels like weight. Pt is waking up d/t pain at night. There are two steps to enter home with rail and he uses cane. He is taking Tramadol at night to help sleep. He is icing frequency. Pt would like to get back to walking, golfing, outdoor biking and boating. PMH includes right hip replacement and pacer Treatment Goals Patient/Caregiver Goals Decreased pain, improve steadiness, walking and range PT-OP-C Subjective Start: 06/08/24 13:05 Freq: Status: Active Protocol: Document 06/13/24 08:56 MB (Rec: 06/13/24 09:46 MB [id number]) OP-PT Subjective Patient Comments Patient Comments See history of current condition Patient Questionnaires Lower Extremity Functional Scale LEFS Score 16/80 LEFS Impairment 80 to 99% Impaired (Score 1-16 ) PT-OP-G Mobility & Gait Start: 06/08/24 13:05 Freq: Status: Active Protocol: Document 06/13/24 08:56 MB (Rec: 06/13/24 09:46 MB [id number]) OP Gait Assessment Comments Gait Comments Better heel-to gait and step- through gait and gait speed with RW today compared to use of SPC in right hand and then step-length and speed are reduced as well as heel strike PT-OP-J Posture/Palpation/Skin Start: 06/08/24 13:05 Freq: Status: Active Protocol: Document 06/13/24 08:56 MB (Rec: 06/13/24 13:36 MB [id number]) Skin Assessment Other Assessments Skin Assessment Comments LLE with dressing over knee and also over fountain, edema, measured for compression hose and is currently size M for JOBST thigh high compression 15-20 mmHg PT-OP-K Range of Motion Start: 06/08/24 13:05 Freq: Status: Active Protocol: Document 06/13/24 08:56 MB (Rec: 06/13/24 09:46 MB [id number]) Knee Goniometric Range of Motion Knee Left Comments AROM supine 10-102 deg Right Comments AROM supine 4-122 deg PT-OP-M Strength Start: 06/08/24 13:05 Freq: Status: Active Protocol: Document 06/13/24 08:56 MB (Rec: 06/13/24 13:36 MB [id number]) Hip Strength Hip Manual Muscle Testing Left Flexion (L2) 4+ Good+ Adduction 5 Normal Right Flexion (L2) 5 Normal Abduction 5 Normal Knee Strength Knee Manual Muscle Testing Left Comments Deferred post-op and pt presents with extensor lag with SLR today Right Flexion (S2) 5 Normal Extension (L3) 5 Normal Ankle/Foot Strength Ankle and Foot Manual Muscle Testing Bilateral Dorsiflexion (L4) 5 Normal Comments Deferred heel raises to check PF strength today Toe Strength Toe Manual Muscle Testing Left Great Toe Extension 5 Normal Right Great Toe Extension 5 Normal PT-OP-Q Treatments Start: 06/08/24 13:05 Freq: Status: Active Protocol: Document 06/13/24 08:56 MB (Rec: 06/13/24 13:36 MB [id number]) Therapeutic Exercises Supine Exercises SLR Supine Exercise Name HEP Side bilateral Comments Initiated SLR today and ed pt where will be going with this as far this ex Basic TKR exercises Supine Exercise Name HEP reviewed Side bilateral Comments APs, QS, GS, HS supine and sitting, hip abduction, passive extension (d/c) Self-Care/Home Management Treatment Education Patient Education Home Exercise Program,Joint Protection,Pain Management Other Education Ed pt and in benefits of compression, shorter and more frequent icing, exercises, working on heel toe and step- through gait with RW, plan for PT PT-OP-T Assessment and Plan Start: 06/08/24 13:05 Freq: Status: Active Protocol: Document 06/13/24 08:56 MB (Rec: 06/13/24 09:46 MB [id number]) Physical Therapy Assessment Rehab Potential Rehabilitation Potential Good Evaluation Complexity Number of Personal Factors/Comorbidities 1-2 Number of Body Systems Impaired 1-2 Clinical Presentation at Evaluation Evolving Impairments Impairments Activity Tolerance,Balance, Coordination,Edema,Functional Activities,Functional Mobility ,Gait,Integument,Pain,Posture, ROM,Soft Tissue Mobility, Strength Goals 5 Impairment Lack of HEP Impairment . Senior Living Goal (LTG) Pt will perform progressive HEP with I including alignment , flexibility, strengthening, balance and gait activities to improve strength and I. LTG Duration 8 weeks 4 Impairment Lack of left knee AROM Impairment . Packaging Technician Goal (LTG) Pt will present with improved AROM left knee equal to right knee to improve standing, gait and transfers. LTG Duration 8 weeks 3 Impairment Evidence of balance impairment Impairment . Senior Living Goal (LTG) Pt will perform at least 11 reps STS in 30 sec without UE support to improve functional balance for age. LTG Duration 8 weeks 2 Impairment Gait impairment Impairment . Packaging Technician Goal (LTG) Pt will gait train at least 1581 feet in 6 minutes without AD to improve community ambulation and balance. LTG Duration 8 weeks 1 Impairment LEF score reflects 80% impairment Impairment . Packaging Technician Goal (LTG) Pt will present with improved LEF score to reflect no more than 20% impairment to improve pain and quality of life. LTG Duration 8 weeks Assessment Summary Assessment Pt is a 79 y/o male presenting with pain, edema, decreased range and strength LLE one week post-op TKR. Pt currently has better gait pattern with RW and ed pt to con't to work on gait pattern with RW to improve functional knee range. Measured pt for thigh high compression today and recommend 15-20 mmHg compression to help decrease edema, tightness and pain post -op. Communicated that pt can contact surgeon to clear this as appropriate. Re-ed in standard TKR exercises and starting SLR today. Anticipate good functional outcomes with OPPT. Physical Therapy Plan Frequency and Duration Frequency of Treatment 2x/Week Duration of treatment (weeks) 8 Plan of Care Start Date 06/13/24 Plan of Care End Date 08/15/24 Therapeutic Interventions Therapeutic Interventions Balance Training,Canalithic Repositioning,Coordination Training,Gait Training,Home Exercise Program,Joint Mobilizations,Manual Therapy, Neuromuscular Re-education, Patient/Caregiver Education, Self-Care/Home Management,Soft Tissue Mobilization,Taping, Therapeutic Activities, Therapeutic Exercises Modalities Cold Pack/Ice Massage,Electric Stimulation,Hot Packs, Ultrasound Next Visit Focus/Plan Next Note Type Treatment Note Next Visit Plan Try Biodex stepper and then upright bike, initiate manual work, consider TrP treatment in future treatments Initiate hamstring stretch with AP, recheck ability to SLR Con't gait training with cane as long as heel-to gait quality is preserved Consider 6MWT and 30 sec STS performance and re-check, progressive balance testing including SLS at end of progression, STS, other body weight exercises and balance activities
--- NOTE | 2024-06-13 13:37 | PT.OPPOC ---
Physical, Occupational & Speech Therapy At [facility] Current Diagnoses Unilateral primary osteoarthritis, left knee (06/13/24) Visit Care Team Role Provider Type Asael Carrington MD Family Provider Physician Primary Care Provider Specialty: Internal Medicine Address: [address] [place] [address], [id number] Email: [email or web address] Ricardo Roy MD Attending Provider Non-Staff Referring Provider Specialty: Medical Address: [address] [place] [address], [place], [phone] Email: Plan Of Care PT-OP-B Current Condition Start: 06/08/24 13:05 Freq: Status: Active Protocol: Document 06/13/24 08:56 MB (Rec: 06/13/24 09:46 [id number]) Current Condition History of Current Condition Onset Date L TKA 06/06/24 Current Complaints General unsteadiness History of Current Condition Pt reports since surgery, he has a general unsteadiness. He initially has pain of 8/10 with standing and the pain decreases to 3/10 once he is up standing. His left leg feels like weight. Pt is waking up d/t pain at night. There are two steps to enter home with rail and he uses cane. He is taking Tramadol at night to help sleep. He is icing frequency. Pt would like to get back to walking, golfing, outdoor biking and boating. PMH includes right hip replacement and pacer Treatment Goals Patient/Caregiver Goals Decreased pain, improve steadiness, walking and range PT-OP-T Assessment and Plan Start: 06/08/24 13:05 Freq: Status: Active Protocol: Document 06/13/24 08:56 MB (Rec: 06/13/24 09:46 MB [id number]) Physical Therapy Assessment Rehab Potential Rehabilitation Potential Good Evaluation Complexity Number of Personal Factors/Comorbidities 1-2 Number of Body Systems Impaired 1-2 Clinical Presentation at Evaluation Evolving Impairments Impairments Activity Tolerance,Balance, Coordination,Edema,Functional Activities,Functional Mobility ,Gait,Integument,Pain,Posture, ROM,Soft Tissue Mobility, Strength Goals 5 Impairment Lack of HEP Impairment . Furniture Crater Goal (LTG) Pt will perform progressive HEP with I including alignment , flexibility, strengthening, balance and gait activities to improve strength and I. LTG Duration 8 weeks 4 Impairment Lack of left knee AROM Impairment . Half-Way Goal (LTG) Pt will present with improved AROM left knee equal to right knee to improve standing, gait and transfers. LTG Duration 8 weeks 3 Impairment Evidence of balance impairment Impairment . Furniture Crater Goal (LTG) Pt will perform at least 11 reps STS in 30 sec without UE support to improve functional balance for age. LTG Duration 8 weeks 2 Impairment Gait impairment Impairment . Furniture Crater Goal (LTG) Pt will gait train at least 1581 feet in 6 minutes without AD to improve community ambulation and balance. LTG Duration 8 weeks 1 Impairment LEF score reflects 80% impairment Impairment . Furniture Crater Goal (LTG) Pt will present with improved LEF score to reflect no more than 20% impairment to improve pain and quality of life. LTG Duration 8 weeks Assessment Summary Assessment Pt is a 79 y/o male presenting with pain, edema, decreased range and strength LLE one week post-op TKR. Pt currently has better gait pattern with RW and ed pt to con't to work on gait pattern with RW to improve functional knee range. Measured pt for thigh high compression today and recommend 15-20 mmHg compression to help decrease edema, tightness and pain post -op. Communicated that pt can contact surgeon to clear this as appropriate. Re-ed in standard TKR exercises and starting SLR today. Anticipate good functional outcomes with OPPT. Physical Therapy Plan Frequency and Duration Frequency of Treatment 2x/Week Duration of treatment (weeks) 8 Plan of Care Start Date 06/13/24 Plan of Care End Date 08/15/24 Therapeutic Interventions Therapeutic Interventions Balance Training,Canalithic Repositioning,Coordination Training,Gait Training,Home Exercise Program,Joint Mobilizations,Manual Therapy, Neuromuscular Re-education, Patient/Caregiver Education, Self-Care/Home Management,Soft Tissue Mobilization,Taping, Therapeutic Activities, Therapeutic Exercises Modalities Cold Pack/Ice Massage,Electric Stimulation,Hot Packs, Ultrasound Next Visit Focus/Plan Next Note Type Treatment Note Next Visit Plan Try Biodex stepper and then upright bike, initiate manual work, consider TrP treatment in future treatments Initiate hamstring stretch with AP, recheck ability to SLR Con't gait training with cane as long as heel-to gait quality is preserved Consider 6MWT and 30 sec STS performance and re-check, progressive balance testing including SLS at end of progression, STS, other body weight exercises and balance activities Plan of Care Dates Plan of Care Start Date 06/13/24 Plan of Care End Date 08/15/24 Electronically Signed by: Jacki Ordoñez, PT 06/13/24 0725 If you are in agreement with this Plan of Care, please return a signed and dated copy. I have reviewed this Plan of Care and certify that the skilled therapy services above are required to meet the patient?s needs. Physician Signature Date Printed Name and Credentials Clinical Instructor Signature Printed Name and Credentials
--- NOTE | 2024-06-20 09:05 | PT.OTN ---
Current Diagnoses Unilateral primary osteoarthritis, left knee (06/20/24) Physical Therapy Treatment Note PT-OP-A Visit Information Start: 06/08/24 13:05 Freq: Status: Active Protocol: Document 06/20/24 07:31 MB (Rec: 06/20/24 09:05 MB [id number]) Out-Patient Physical Therapy Visit Information Visit Information Visit Type Treatment Note Visit Note [employer] Medicare Progress note by 07/14/24 Anneliese Visit Start Time 07:31 Visit Stop Time 08:11 Visit Number 2 Number of COMMUNITY LIVING INSTRUCTOR Visits 0 Evaluation Information Evaluation Date 06/13/24 Precautions Precautions Pt is on 325 mg aspirin twice a day PT-OP-B Current Condition Start: 06/08/24 13:05 Freq: Status: Active Protocol: Document 06/13/24 08:56 MB (Rec: 06/13/24 09:46 MB [id number]) Current Condition History of Current Condition Onset Date L TKA 06/06/24 Current Complaints General unsteadiness History of Current Condition Pt reports since surgery, he has a general unsteadiness. He initially has pain of 8/10 with standing and the pain decreases to 3/10 once he is up standing. His left leg feels like weight. Pt is waking up d/t pain at night. There are two steps to enter home with rail and he uses cane. He is taking Tramadol at night to help sleep. He is icing frequency. Pt would like to get back to walking, golfing, outdoor biking and boating. PMH includes right hip replacement and pacer Treatment Goals Patient/Caregiver Goals Decreased pain, improve steadiness, walking and range PT-OP-C Subjective Start: 06/08/24 13:05 Freq: Status: Active Protocol: Document 06/20/24 07:31 MB (Rec: 06/20/24 09:05 MB [id number]) OP-PT Subjective Patient Comments Patient Comments Pt is feeling a lot better with the compression. He did better with Oxy and it is now finished. He is taking Tramadol and icing. He asks about walking outside with walker and understands benefits of borrowing rollator from [employer] for long walks outside. PT-OP-G Mobility & Gait Start: 06/08/24 13:05 Freq: Status: Active Protocol: Document 06/13/24 08:56 MB (Rec: 06/13/24 09:46 MB [id number]) OP Gait Assessment Comments Gait Comments Better heel-to gait and step- through gait and gait speed with RW today compared to use of SPC in right hand and then step-length and speed are reduced as well as heel strike PT-OP-J Posture/Palpation/Skin Start: 06/08/24 13:05 Freq: Status: Active Protocol: Document 06/13/24 08:56 MB (Rec: 06/13/24 13:36 MB [id number]) Skin Assessment Other Assessments Skin Assessment Comments LLE with dressing over knee and also over fountain, edema, measured for compression hose and is currently size M for JOBST thigh high compression 15-20 mmHg PT-OP-K Range of Motion Start: 06/08/24 13:05 Freq: Status: Active Protocol: Document 06/13/24 08:56 MB (Rec: 06/13/24 09:46 MB [id number]) Knee Goniometric Range of Motion Knee Left Comments AROM supine 10-102 deg Right Comments AROM supine 4-122 deg PT-OP-M Strength Start: 06/08/24 13:05 Freq: Status: Active Protocol: Document 06/13/24 08:56 MB (Rec: 06/13/24 13:36 MB [id number]) Hip Strength Hip Manual Muscle Testing Left Flexion (L2) 4+ Good+ Adduction 5 Normal Right Flexion (L2) 5 Normal Abduction 5 Normal Knee Strength Knee Manual Muscle Testing Left Comments Deferred post-op and pt presents with extensor lag with SLR today Right Flexion (S2) 5 Normal Extension (L3) 5 Normal Ankle/Foot Strength Ankle and Foot Manual Muscle Testing Bilateral Dorsiflexion (L4) 5 Normal Comments Deferred heel raises to check PF strength today Toe Strength Toe Manual Muscle Testing Left Great Toe Extension 5 Normal Right Great Toe Extension 5 Normal PT-OP-Q Treatments Start: 06/08/24 13:05 Freq: Status: Active Protocol: Document 06/20/24 07:31 MB (Rec: 06/20/24 09:05 MB [id number]) Cardio Equipment Recumbent Elliptical (Biodex) Duration (Minutes) 5 Resistance 2 Bicycle (Upright) Duration (Minutes) 10 Resistance 4-10 Seat Position 8 Gait Training Gait Activity Gait training with RW Comments Pt's gait is great with RW: great shalini, knee flexion, heel strike and step-through, progress to cane and no AD soon, for longer walks outside until further assessed, could try rollator Manual Therapy Treatment Consent Patient gave verbal consent for manual Yes treatment Other Other Manual Treatments Pt supine with head and legs supported: STM and rehydration with therapy lotion of dry, flaky, left leg. STM left PFs, hamstrings and quads, bandage left over proximal wound and otherwise, incisions good, ed to moistrize leg every night before sleeping Self-Care/Home Management Treatment Education Other Education See ed above about leg, ed pt on orthostatic hypotension and provided education handouts and ed pt to contact Dr. Carrington 's office PT-OP-T Assessment and Plan Start: 06/08/24 13:05 Freq: Status: Active Protocol: Document 06/20/24 07:31 MB (Rec: 06/20/24 09:05 MB [id number]) Physical Therapy Assessment Rehab Potential Rehabilitation Potential Good Evaluation Complexity Number of Personal Factors/Comorbidities 1-2 Number of Body Systems Impaired 1-2 Clinical Presentation at Evaluation Evolving Impairments Impairments Activity Tolerance,Balance, Coordination,Edema,Functional Activities,Functional Mobility ,Gait,Integument,Pain,Posture, ROM,Soft Tissue Mobility, Strength Goals 5 Impairment Lack of HEP Impairment . Regulatory Scientist Goal (LTG) Pt will perform progressive HEP with I including alignment , flexibility, strengthening, balance and gait activities to improve strength and I. LTG Duration 8 weeks 4 Impairment Lack of left knee AROM Impairment . Alf Goal (LTG) Pt will present with improved AROM left knee equal to right knee to improve standing, gait and transfers. LTG Duration 8 weeks 3 Impairment Evidence of balance impairment Impairment . Alf Goal (LTG) Pt will perform at least 11 reps STS in 30 sec without UE support to improve functional balance for age. LTG Duration 8 weeks 2 Impairment Gait impairment Impairment . Alf Goal (LTG) Pt will gait train at least 1581 feet in 6 minutes without AD to improve community ambulation and balance. LTG Duration 8 weeks 1 Impairment LEF score reflects 80% impairment Impairment . Regulatory Scientist Goal (LTG) Pt will present with improved LEF score to reflect no more than 20% impairment to improve pain and quality of life. LTG Duration 8 weeks Assessment Summary Assessment Pt is feeling better with compression. He c/o light- headedness and clamminess over last week and PT checks orthostatics after bike in LUE : supine 138/76, 62; standing 103/59, 71; standing 1' 115/67 , 75. Ed pt about orthostasis, hydration, etc and to contact PCP, Dr. Carrington, and PT will send this note to PCP today. Knee range and gait are improving and full revolutions on upright bike today. Physical Therapy Plan Frequency and Duration Frequency of Treatment 2x/Week Duration of treatment (weeks) 8 Plan of Care Start Date 06/13/24 Plan of Care End Date 08/15/24 Therapeutic Interventions Therapeutic Interventions Balance Training,Canalithic Repositioning,Coordination Training,Gait Training,Home Exercise Program,Joint Mobilizations,Manual Therapy, Neuromuscular Re-education, Patient/Caregiver Education, Self-Care/Home Management,Soft Tissue Mobilization,Taping, Therapeutic Activities, Therapeutic Exercises Modalities Cold Pack/Ice Massage,Electric Stimulation,Hot Packs, Ultrasound Next Visit Focus/Plan Next Note Type Treatment Note Next Visit Plan Upright bike warm-up, progress gait with cane, ongoing manual work, keep eye on orthostasis Initiate hamstring stretch with AP, recheck ability to SLR Consider 6MWT and 30 sec STS performance and re-check, progressive balance testing including SLS at end of progression, STS, other body weight exercises and balance activities
--- NOTE | 2024-06-22 08:40 | PT.OTN ---
Current Diagnoses Unilateral primary osteoarthritis, left knee (06/22/24) Physical Therapy Treatment Note PT-OP-A Visit Information Start: 06/08/24 13:05 Freq: Status: Active Protocol: Document 06/22/24 07:29 NM (Rec: 06/22/24 08:40 NM [id number]) Out-Patient Physical Therapy Visit Information Visit Information Visit Type Treatment Note Visit Note [employer] Progress note by 07/14/24 Anneliese Visit Start Time 07:30 Visit Stop Time 08:15 Visit Number 3 Evaluation Information Evaluation Date 06/13/24 Precautions Precautions Pt is on 325 mg aspirin twice a day PT-OP-B Current Condition Start: 06/08/24 13:05 Freq: Status: Active Protocol: Document 06/13/24 08:56 MB (Rec: 06/13/24 09:46 MB [id number]) Current Condition History of Current Condition Onset Date L TKA 06/06/24 Current Complaints General unsteadiness History of Current Condition Pt reports since surgery, he has a general unsteadiness. He initially has pain of 8/10 with standing and the pain decreases to 3/10 once he is up standing. His left leg feels like weight. Pt is waking up d/t pain at night. There are two steps to enter home with rail and he uses cane. He is taking Tramadol at night to help sleep. He is icing frequency. Pt would like to get back to walking, golfing, outdoor biking and boating. PMH includes right hip replacement and pacer Treatment Goals Patient/Caregiver Goals Decreased pain, improve steadiness, walking and range PT-OP-C Subjective Start: 06/08/24 13:05 Freq: Status: Active Protocol: Document 06/22/24 07:29 NM (Rec: 06/22/24 08:40 NM [id number]) OP-PT Subjective Patient Comments Patient Comments Pt reports no feelings of lightheadedness since last session; has been hydrating more. Alerted Dr. Carrington PCP but has not heard back. Exercises going ok, reports easy. States that pain is lessening, reports sleeping is still worst for pain management; reducing pain meds , no longer on oxy, states managing well. Reports has been ambulating intermittently at home without AD but reports 1x instance of knee feeling like will buckle w/o fall PT-OP-G Mobility & Gait Start: 06/08/24 13:05 Freq: Status: Active Protocol: Document 06/13/24 08:56 MB (Rec: 06/13/24 09:46 MB [id number]) OP Gait Assessment Comments Gait Comments Better heel-to gait and step- through gait and gait speed with RW today compared to use of SPC in right hand and then step-length and speed are reduced as well as heel strike PT-OP-J Posture/Palpation/Skin Start: 06/08/24 13:05 Freq: Status: Active Protocol: Document 06/13/24 08:56 MB (Rec: 06/13/24 13:36 MB [id number]) Skin Assessment Other Assessments Skin Assessment Comments LLE with dressing over knee and also over fountain, edema, measured for compression hose and is currently size M for JOBST thigh high compression 15-20 mmHg PT-OP-K Range of Motion Start: 06/08/24 13:05 Freq: Status: Active Protocol: Document 06/13/24 08:56 MB (Rec: 06/13/24 09:46 MB [id number]) Knee Goniometric Range of Motion Knee Left Comments AROM supine 10-102 deg Right Comments AROM supine 4-122 deg PT-OP-M Strength Start: 06/08/24 13:05 Freq: Status: Active Protocol: Document 06/13/24 08:56 MB (Rec: 06/13/24 13:36 MB [id number]) Hip Strength Hip Manual Muscle Testing Left Flexion (L2) 4+ Good+ Adduction 5 Normal Right Flexion (L2) 5 Normal Abduction 5 Normal Knee Strength Knee Manual Muscle Testing Left Comments Deferred post-op and pt presents with extensor lag with SLR today Right Flexion (S2) 5 Normal Extension (L3) 5 Normal Ankle/Foot Strength Ankle and Foot Manual Muscle Testing Bilateral Dorsiflexion (L4) 5 Normal Comments Deferred heel raises to check PF strength today Toe Strength Toe Manual Muscle Testing Left Great Toe Extension 5 Normal Right Great Toe Extension 5 Normal PT-OP-Q Treatments Start: 06/08/24 13:05 Freq: Status: Active Protocol: Document 06/22/24 07:29 NM (Rec: 06/22/24 08:40 NM [id number]) Cardio Equipment Bicycle (Upright) Duration (Minutes) 6 Resistance 4 Other seat ht 10>8>7; warm up, no knee pain Therapeutic Exercises Supine Exercises Basic TKR exercises Supine Exercise Name HEP review: 1. quad set, 2. SLR Side left Reps/Minutes 1. 10x3 Comments demos good TKE w/ slight heel pop Sitting Exercises TKE Sitting Exercise Name with HS stretch using strap ( HEP) Side left Equipment Used heel elevated on small wedge Reps/Minutes 15x3 sit to stand Sitting Exercise Name HEP Side bilateral Resistance level 3 band at thighs to limit valgus Equipment Used from standard chair Reps/Minutes 2x5 Comments LLE slightly fwd to dec pain when present, pain dec w/ reps hip abduction Sitting Exercise Name isometric hold Side bilateral Resistance level 3 band Reps/Minutes 60 Comments prior to SLS Gait Training Gait Activity 6 MWT Device Used spc Level of Assistance close SBA Surface level, stable Distance/Duration 900 Treatment Focus gait mechanics, endurance, carryover of AD use Comments Demos L heel strike and knee flex during swing, mildly antalgic. Decreased speed with fatigue. Prn cues for wider stance to prevent feet crossing especially on turns gait training with spc Device Used spc Level of Assistance CGA > close SBA Surface level, stable Distance/Duration various distances throughout clinic Treatment Focus gait mechanics, AD coordination Comments Spc ht fit for pt, education and rationale of coordination in 2 pt pattern with spc in R hand and spc placement. Good carryover with training, good L heel strike and knee flex. Slightly antalgic Manual Therapy Treatment Consent Patient gave verbal consent for manual Yes treatment Soft Tissue Mobilization L knee Body Location quad, hip flexors, HS, calf Mobilization Type Rolling Intensity/Depth Superficial Comments Performed in hooklying with LLE elevated on bolster and in supine with LLE in extension. Distal > proximal to reduce muscle tightness, decrease swelling, and Avoiding healing incisions; incisions intact without signs of infection. Edu to continue with moisturize leg but avoid incisions and to alert Md at visit today about small scabbed area at most proximal portion of scar. Neuro Re-Education Treatment Balance Activities SLS Equipment no UE support Comments 3x5 sec RLE 3, 2, 5 sec LLE, no increase in L knee pain Self-Care/Home Management Treatment Education Patient Education Fall Risk,Joint Protection, Safety Other Education Education to continue with AD use of at home for safety and pain management. Recommended bring spc with FWW to clinic for fitting and gait training prior to beginning use at home During HEP with STS, recommended chair placement in secure place and nearby for balance assist if needed even though no signs of LOB during treatment session PT-OP-T Assessment and Plan Start: 06/08/24 13:05 Freq: Status: Active Protocol: Document 06/22/24 07:29 NM (Rec: 06/22/24 08:40 NM [id number]) Physical Therapy Assessment Goals 5 Impairment Lack of HEP Impairment . Labeling Strategist Goal (LTG) Pt will perform progressive HEP with I including alignment , flexibility, strengthening, balance and gait activities to improve strength and I. LTG Duration 8 weeks 4 Impairment Lack of left knee AROM Impairment . Snf Goal (LTG) Pt will present with improved AROM left knee equal to right knee to improve standing, gait and transfers. LTG Duration 8 weeks 3 Impairment Evidence of balance impairment Impairment . Labeling Strategist Goal (LTG) Pt will perform at least 11 reps STS in 30 sec without UE support to improve functional balance for age. LTG Duration 8 weeks 2 Impairment Gait impairment Impairment . Labeling Strategist Goal (LTG) Pt will gait train at least 1581 feet in 6 minutes without AD to improve community ambulation and balance. LTG Duration 8 weeks 1 Impairment LEF score reflects 80% impairment Impairment . Snf Goal (LTG) Pt will present with improved LEF score to reflect no more than 20% impairment to improve pain and quality of life. LTG Duration 8 weeks Assessment Summary Assessment Pt reports no increased pain with gait, SLS, or exercise except STS; reduced with LLE slightly more advanced that RLE. Prn reports of lightheadedness, improved with hydration during session. Initiated glute strengthening and continued with quad strengthening for stability. Demos good TKE with slight heel lift during quad set and maintains TKE throughout SLR. Pt has 115 deg L knee flex AROM and lacking 1 deg ext AROM. Currently 2 weeks post op. Maintains L SLS for 2-5 sec without UE assist and no knee pain. Initiated gait training with spc and ambulated 900 ft on 6 MWT; continues to have mildly antalgic gait but demos good heel strike and swing on LLE. Education on continued use of AD for safety during household ambulation but recommended bring spc into clinic prior to switching at home/community. Pt would continue to benefit from skilled PT for progressive ROM and strengthening of LLE for improved functional mobility and ability to perform ADLs. Physical Therapy Plan Frequency and Duration Frequency of Treatment 2x/Week Duration of treatment (weeks) 8 Plan of Care Start Date 06/13/24 Plan of Care End Date 08/15/24 Therapeutic Interventions Therapeutic Interventions Balance Training,Canalithic Repositioning,Coordination Training,Gait Training,Home Exercise Program,Joint Mobilizations,Manual Therapy, Neuromuscular Re-education, Patient/Caregiver Education, Self-Care/Home Management,Soft Tissue Mobilization,Taping, Therapeutic Activities, Therapeutic Exercises Modalities Cold Pack/Ice Massage,Electric Stimulation,Hot Packs, Ultrasound Next Visit Focus/Plan Next Note Type Treatment Note Next Visit Plan Upright bike warm-up, progress gait with cane including curbs/stairs etc for household /community ambulation, ongoing manual work, keep eye on orthostasis Recheck HEP- update as needed; review STS. Cont SLR/quad strength, Trial standing TKE. Knee flexion ROM functionally and glute strength in sitting/ standing per POC: Progressive balance testing including SLS at end of progression, STS, other body weight exercises and balance activities
--- NOTE | 2024-06-28 11:01 | PT.OTN ---
Current Diagnoses Unilateral primary osteoarthritis, left knee (06/28/24) Physical Therapy Treatment Note PT-OP-A Visit Information Start: 06/08/24 13:05 Freq: Status: Active Protocol: Document 06/28/24 08:11 AB (Rec: 06/28/24 11:00 AB [id number]) Out-Patient Physical Therapy Visit Information Visit Information Visit Type Treatment Note Visit Note [employer] Medicare Visit [email or web address]: [email or web address] Progress note by 07/14/24 Anneliese Visit Start Time 09:02 Visit Stop Time 09:45 Visit Number 4 Number of OVEREDGER Visits 1 Evaluation Information Evaluation Date 06/13/24 Precautions Precautions Pt is on 325 mg aspirin twice a day PT-OP-B Current Condition Start: 06/08/24 13:05 Freq: Status: Active Protocol: Document 06/13/24 08:56 MB (Rec: 06/13/24 09:46 MB [id number]) Current Condition History of Current Condition Onset Date L TKA 06/06/24 Current Complaints General unsteadiness History of Current Condition Pt reports since surgery, he has a general unsteadiness. He initially has pain of 8/10 with standing and the pain decreases to 3/10 once he is up standing. His left leg feels like weight. Pt is waking up d/t pain at night. There are two steps to enter home with rail and he uses cane. He is taking Tramadol at night to help sleep. He is icing frequency. Pt would like to get back to walking, golfing, outdoor biking and boating. PMH includes right hip replacement and pacer Treatment Goals Patient/Caregiver Goals Decreased pain, improve steadiness, walking and range PT-OP-C Subjective Start: 06/08/24 13:05 Freq: Status: Active Protocol: Document 06/28/24 08:11 AB (Rec: 06/28/24 11:00 AB [id number]) OP-PT Subjective Patient Comments Patient Comments Patient reports the knee is getting better, rates knee pain 2-3/10 start of session. Patient reports knee buckled once this week, did not fall. Patient reports he was light headed one day with BP drop when standing up. lacking 6 deg extension to 115 deg flexion AROM left knee post warm up on bike. SLS left LE 7 sec without UE use pre seated hip abd with band 10 sec. PT-OP-G Mobility & Gait Start: 06/08/24 13:05 Freq: Status: Active Protocol: Document 06/13/24 08:56 MB (Rec: 06/13/24 09:46 MB [id number]) OP Gait Assessment Comments Gait Comments Better heel-to gait and step- through gait and gait speed with RW today compared to use of SPC in right hand and then step-length and speed are reduced as well as heel strike PT-OP-J Posture/Palpation/Skin Start: 06/08/24 13:05 Freq: Status: Active Protocol: Document 06/13/24 08:56 MB (Rec: 06/13/24 13:36 MB [id number]) Skin Assessment Other Assessments Skin Assessment Comments LLE with dressing over knee and also over fountain, edema, measured for compression hose and is currently size M for JOBST thigh high compression 15-20 mmHg PT-OP-K Range of Motion Start: 06/08/24 13:05 Freq: Status: Active Protocol: Document 06/13/24 08:56 MB (Rec: 06/13/24 09:46 MB [id number]) Knee Goniometric Range of Motion Knee Left Comments AROM supine 10-102 deg Right Comments AROM supine 4-122 deg PT-OP-M Strength Start: 06/08/24 13:05 Freq: Status: Active Protocol: Document 06/13/24 08:56 MB (Rec: 06/13/24 13:36 MB [id number]) Hip Strength Hip Manual Muscle Testing Left Flexion (L2) 4+ Good+ Adduction 5 Normal Right Flexion (L2) 5 Normal Abduction 5 Normal Knee Strength Knee Manual Muscle Testing Left Comments Deferred post-op and pt presents with extensor lag with SLR today Right Flexion (S2) 5 Normal Extension (L3) 5 Normal Ankle/Foot Strength Ankle and Foot Manual Muscle Testing Bilateral Dorsiflexion (L4) 5 Normal Comments Deferred heel raises to check PF strength today Toe Strength Toe Manual Muscle Testing Left Great Toe Extension 5 Normal Right Great Toe Extension 5 Normal PT-OP-Q Treatments Start: 06/08/24 13:05 Freq: Status: Active Protocol: Document 06/28/24 08:11 AB (Rec: 06/28/24 11:00 AB [id number]) Cardio Equipment Bicycle (Upright) Duration (Minutes) 6 Resistance 10 Seat Position 8 Therapeutic Exercises Supine Exercises Basic TKR exercises Supine Exercise Name HEP review: 1. heel slide 2. SLR Reps/Minutes X10 each Comments post manual Sitting Exercises HS stretch with step Side left Reps/Minutes one minute X 2 Comments post manual hip abduction Sitting Exercise Name isometric hold HEP Side bilateral Resistance level 3 band Reps/Minutes 60 Gait Training Gait Activity gait training with spc Description SPC adjusted for height Device Used spc Level of Assistance SBA Surface level surface, stairs, outdoors, curbs, slight incline and decline Treatment Focus Verbal cues for increased knee ext on heel strike, for cane pos stair,curbs Comments Patient ed to begin short distances out of home with SPC and return to SPC ie use more if pain increases. Manual Therapy Treatment Consent Patient gave verbal consent for manual Yes treatment Soft Tissue Mobilization L knee Body Location HS, quad and for swelling Mobilization Type Rolling,Other Intensity/Depth Superficial Body Position Hooklying Comments and moderate PT-OP-T Assessment and Plan Start: 06/08/24 13:05 Freq: Status: Active Protocol: Document 06/28/24 08:11 AB (Rec: 06/28/24 11:00 AB [id number]) Physical Therapy Assessment Goals 5 Impairment Lack of HEP Impairment . Usp Goal (LTG) Pt will perform progressive HEP with I including alignment , flexibility, strengthening, balance and gait activities to improve strength and I. LTG Duration 8 weeks 4 Impairment Lack of left knee AROM Impairment . Park Landscape Architect Goal (LTG) Pt will present with improved AROM left knee equal to right knee to improve standing, gait and transfers. LTG Duration 8 weeks 3 Impairment Evidence of balance impairment Impairment . [employer] Landscape Architect Goal (LTG) Pt will perform at least 11 reps STS in 30 sec without UE support to improve functional balance for age. LTG Duration 8 weeks 2 Impairment Gait impairment Impairment . [employer] Landscape Architect Goal (LTG) Pt will gait train at least 1581 feet in 6 minutes without AD to improve community ambulation and balance. LTG Duration 8 weeks 1 Impairment LEF score reflects 80% impairment Impairment . Usp Goal (LTG) Pt will present with improved LEF score to reflect no more than 20% impairment to improve pain and quality of life. LTG Duration 8 weeks Assessment Summary Assessment Lacking 4 deg ext to 116 deg flexion post manual and exercise left knee AROM. Patient rates pain 1-2/10 left knee end of session ambulatng with SPC. No complaints of dizziness or lightheadedness this session. Physical Therapy Plan Frequency and Duration Frequency of Treatment 2x/Week Duration of treatment (weeks) 8 Plan of Care Start Date 06/13/24 Plan of Care End Date 08/15/24 Next Visit Focus/Plan Next Note Type Treatment Note Next Visit Plan Upright bike warm-up, Assess nae with increased gait with cane use at home and for short distances out in community. ongoing manual work, keep eye on orthostasis Recheck HEP- update as needed; review STS. Cont SLR/quad strength, Trial standing TKE next session. Knee flexion ROM functionally and glute strength in sitting/standing per POC: Progressive balance testing ( TUG ) including SLS at end of progression, Review STS, other body weight exercises and balance activities
--- NOTE | 2024-06-30 10:47 | PT.OTN ---
Current Diagnoses Unilateral primary osteoarthritis, left knee (06/30/24) Physical Therapy Treatment Note PT-OP-A Visit Information Start: 06/08/24 13:05 Freq: Status: Active Protocol: Document 06/30/24 08:06 AB (Rec: 06/30/24 10:46 AB [id number]) Out-Patient Physical Therapy Visit Information Visit Information Visit Type Treatment Note Visit Note [employer] Medicare Visit [email or web address] Access Code: [email or web address] Progress note by 07/14/24 Anneliese Visit Start Time 09:05 Visit Stop Time 09:46 Visit Number 5 Number of NETWORK PROJECT MANAGER Visits 1 Evaluation Information Evaluation Date 06/13/24 Precautions Precautions Pt is on 325 mg aspirin twice a day PT-OP-B Current Condition Start: 06/08/24 13:05 Freq: Status: Active Protocol: Document 06/13/24 08:56 MB (Rec: 06/13/24 09:46 MB [id number]) Current Condition History of Current Condition Onset Date L TKA 06/06/24 Current Complaints General unsteadiness History of Current Condition Pt reports since surgery, he has a general unsteadiness. He initially has pain of 8/10 with standing and the pain decreases to 3/10 once he is up standing. His left leg feels like weight. Pt is waking up d/t pain at night. There are two steps to enter home with rail and he uses cane. He is taking Tramadol at night to help sleep. He is icing frequency. Pt would like to get back to walking, golfing, outdoor biking and boating. PMH includes right hip replacement and pacer Treatment Goals Patient/Caregiver Goals Decreased pain, improve steadiness, walking and range PT-OP-C Subjective Start: 06/08/24 13:05 Freq: Status: Active Protocol: Document 06/30/24 08:06 AB (Rec: 06/30/24 10:46 AB [id number]) OP-PT Subjective Patient Comments Patient Comments Patient reports rates pain 2/ 10 left knee comments he went out to lunch, used the SPC was sore. Lacking 2 deg extension to 115 deg flexion AROM left knee start of session. PT-OP-G Mobility & Gait Start: 06/08/24 13:05 Freq: Status: Active Protocol: Document 06/13/24 08:56 MB (Rec: 06/13/24 09:46 MB [id number]) OP Gait Assessment Comments Gait Comments Better heel-to gait and step- through gait and gait speed with RW today compared to use of SPC in right hand and then step-length and speed are reduced as well as heel strike PT-OP-J Posture/Palpation/Skin Start: 06/08/24 13:05 Freq: Status: Active Protocol: Document 06/13/24 08:56 MB (Rec: 06/13/24 13:36 MB [id number]) Skin Assessment Other Assessments Skin Assessment Comments LLE with dressing over knee and also over fountain, edema, measured for compression hose and is currently size M for JOBST thigh high compression 15-20 mmHg PT-OP-K Range of Motion Start: 06/08/24 13:05 Freq: Status: Active Protocol: Document 06/13/24 08:56 MB (Rec: 06/13/24 09:46 MB [id number]) Knee Goniometric Range of Motion Knee Left Comments AROM supine 10-102 deg Right Comments AROM supine 4-122 deg PT-OP-M Strength Start: 06/08/24 13:05 Freq: Status: Active Protocol: Document 06/13/24 08:56 MB (Rec: 06/13/24 13:36 MB [id number]) Hip Strength Hip Manual Muscle Testing Left Flexion (L2) 4+ Good+ Adduction 5 Normal Right Flexion (L2) 5 Normal Abduction 5 Normal Knee Strength Knee Manual Muscle Testing Left Comments Deferred post-op and pt presents with extensor lag with SLR today Right Flexion (S2) 5 Normal Extension (L3) 5 Normal Ankle/Foot Strength Ankle and Foot Manual Muscle Testing Bilateral Dorsiflexion (L4) 5 Normal Comments Deferred heel raises to check PF strength today Toe Strength Toe Manual Muscle Testing Left Great Toe Extension 5 Normal Right Great Toe Extension 5 Normal PT-OP-Q Treatments Start: 06/08/24 13:05 Freq: Status: Active Protocol: Document 06/30/24 08:06 AB (Rec: 06/30/24 10:46 AB [id number]) Cardio Equipment Bicycle (Upright) Duration (Minutes) 7 Resistance 10, 8 Seat Position 8, 6 Therapeutic Exercises Sitting Exercises HS stretch with step Side left Reps/Minutes one minute X 2 Comments post manual sit to stand Side bilateral Resistance level 4 band Equipment Used from standard chair Reps/Minutes X10 Comments verbal cues to keep tension on band and stand fully upright with knees stra hip abduction Sitting Exercise Name isometric hold HEP Side bilateral Resistance level 4 band 4 band to HEP Reps/Minutes 60 Standing Exercises terminal knee extension Standing Exercise Name HEP Side left Resistance level 4 band Reps/Minutes X15 Comments verbal and visual cues Manual Therapy Treatment Consent Patient gave verbal consent for manual Yes treatment Soft Tissue Mobilization L knee Body Location HS, quad and for swelling Mobilization Type Cross-Friction,Rolling, Strumming,Other Intensity/Depth Moderate Body Position Hooklying Joint Mobilizations Patellar mobilizations Joint left knee Direction sup, inf, med, lat CW, CCW Reps/Duration X5 X 2 each direction PT-OP-T Assessment and Plan Start: 06/08/24 13:05 Freq: Status: Active Protocol: Document 06/30/24 08:06 AB (Rec: 06/30/24 10:46 AB [id number]) Physical Therapy Assessment Goals 5 Impairment Lack of HEP Impairment . Glaze Wiper Goal (LTG) Pt will perform progressive HEP with I including alignment , flexibility, strengthening, balance and gait activities to improve strength and I. LTG Duration 8 weeks 4 Impairment Lack of left knee AROM Impairment . Glaze Wiper Goal (LTG) Pt will present with improved AROM left knee equal to right knee to improve standing, gait and transfers. LTG Duration 8 weeks 3 Impairment Evidence of balance impairment Impairment . Skilled Nursing Goal (LTG) Pt will perform at least 11 reps STS in 30 sec without UE support to improve functional balance for age. LTG Duration 8 weeks 2 Impairment Gait impairment Impairment . Glaze Wiper Goal (LTG) Pt will gait train at least 1581 feet in 6 minutes without AD to improve community ambulation and balance. LTG Duration 8 weeks 1 Impairment LEF score reflects 80% impairment Impairment . Skilled Nursing Goal (LTG) Pt will present with improved LEF score to reflect no more than 20% impairment to improve pain and quality of life. LTG Duration 8 weeks Assessment Summary Assessment AROM 118 deg flexion left knee post manual and exercise. Akash rates left knee pain 1-2/10 end of session ambulating out of session with SPC. SLS 15 seconds left LE without UE use post glute med activation. Physical Therapy Plan Frequency and Duration Frequency of Treatment 2x/Week Duration of treatment (weeks) 8 Plan of Care Start Date 06/13/24 Plan of Care End Date 08/15/24 Next Visit Focus/Plan Next Note Type Treatment Note Next Visit Plan Upright bike warm-up, Assess nae with increased ongoing manual work, keep eye on orthostasis Recheck HEP- update as needed; review STS. Cont SLR/quad strength, Trial standing TKE next session. Knee flexion ROM functionally and glute strength in sitting/standing per POC: Progressive balance testing ( TUG ) including SLS at end of progression, Review STS, other body weight exercises and balance activities
--- NOTE | 2024-07-04 09:47 | PT.OTN ---
Current Diagnoses Unilateral primary osteoarthritis, left knee (07/04/24) Physical Therapy Treatment Note PT-OP-A Visit Information Start: 06/08/24 13:05 Freq: Status: Active Protocol: Document 07/04/24 09:02 NM (Rec: 07/04/24 09:47 NM [id number]) Out-Patient Physical Therapy Visit Information Visit Information Visit Type Treatment Note Visit Note [employer] Medicare Visit [email or web address] Access Code: [email or web address] Progress note by 07/14/24 Anneliese Visit Start Time 09:03 Visit Stop Time 09:43 Visit Number 6 Evaluation Information Evaluation Date 06/13/24 Precautions Precautions Pt is on 325 mg aspirin twice a day PT-OP-B Current Condition Start: 06/08/24 13:05 Freq: Status: Active Protocol: Document 06/13/24 08:56 MB (Rec: 06/13/24 09:46 MB [id number]) Current Condition History of Current Condition Onset Date L TKA 06/06/24 Current Complaints General unsteadiness History of Current Condition Pt reports since surgery, he has a general unsteadiness. He initially has pain of 8/10 with standing and the pain decreases to 3/10 once he is up standing. His left leg feels like weight. Pt is waking up d/t pain at night. There are two steps to enter home with rail and he uses cane. He is taking Tramadol at night to help sleep. He is icing frequency. Pt would like to get back to walking, golfing, outdoor biking and boating. PMH includes right hip replacement and pacer Treatment Goals Patient/Caregiver Goals Decreased pain, improve steadiness, walking and range PT-OP-C Subjective Start: 06/08/24 13:05 Freq: Status: Active Protocol: Document 07/04/24 09:02 NM (Rec: 07/04/24 09:47 NM [id number]) OP-PT Subjective Patient Comments Patient Comments Pt reports pushed his knee to hard yesterday. He reports 3/ 10 L knee pain. He reports pain with heel slides. Wants to know if needs to use walker or spc. He has been going up 2 steps to enter house without spc. PT-OP-G Mobility & Gait Start: 06/08/24 13:05 Freq: Status: Active Protocol: Document 06/13/24 08:56 MB (Rec: 06/13/24 09:46 MB [id number]) OP Gait Assessment Comments Gait Comments Better heel-to gait and step- through gait and gait speed with RW today compared to use of SPC in right hand and then step-length and speed are reduced as well as heel strike PT-OP-J Posture/Palpation/Skin Start: 06/08/24 13:05 Freq: Status: Active Protocol: Document 06/13/24 08:56 MB (Rec: 06/13/24 13:36 MB [id number]) Skin Assessment Other Assessments Skin Assessment Comments LLE with dressing over knee and also over fountain, edema, measured for compression hose and is currently size M for JOBST thigh high compression 15-20 mmHg PT-OP-K Range of Motion Start: 06/08/24 13:05 Freq: Status: Active Protocol: Document 06/13/24 08:56 MB (Rec: 06/13/24 09:46 MB [id number]) Knee Goniometric Range of Motion Knee Left Comments AROM supine 10-102 deg Right Comments AROM supine 4-122 deg PT-OP-M Strength Start: 06/08/24 13:05 Freq: Status: Active Protocol: Document 06/13/24 08:56 MB (Rec: 06/13/24 13:36 MB [id number]) Hip Strength Hip Manual Muscle Testing Left Flexion (L2) 4+ Good+ Adduction 5 Normal Right Flexion (L2) 5 Normal Abduction 5 Normal Knee Strength Knee Manual Muscle Testing Left Comments Deferred post-op and pt presents with extensor lag with SLR today Right Flexion (S2) 5 Normal Extension (L3) 5 Normal Ankle/Foot Strength Ankle and Foot Manual Muscle Testing Bilateral Dorsiflexion (L4) 5 Normal Comments Deferred heel raises to check PF strength today Toe Strength Toe Manual Muscle Testing Left Great Toe Extension 5 Normal Right Great Toe Extension 5 Normal PT-OP-Q Treatments Start: 06/08/24 13:05 Freq: Status: Active Protocol: Document 07/04/24 09:02 NM (Rec: 07/04/24 09:47 NM [id number]) Cardio Equipment Bicycle (Upright) Duration (Minutes) 5 Resistance 10 Seat Position 6 Other warm up Gym Equipment Shuttle Recovery B squat Details progress next; reports light headed following Resistance 75# (2 navy) Reps/Time 20 Therapeutic Exercises Sitting Exercises HSC Sitting Exercise Name w/ heel slide (slider) Side left Resistance level 1 band Reps/Minutes 20 Comments pain free; post manual tx Standing Exercises resisted stepping Standing Exercise Name lateral stepping Side bilateral Resistance lvl 3 band at thighs above knees > just below knees Reps/Minutes 2x20 ft ea Comments no knee pain step up Standing Exercise Name fwd: 4 > 6 Side bilateral Equipment Used no hand support for balance Reps/Minutes 10 ea 4, 2x10 6 ea Comments no pain; cued TKE in stance Manual Therapy Treatment Consent Patient gave verbal consent for manual Yes treatment Soft Tissue Mobilization L knee Body Location HS, quad and for swelling Mobilization Type Cross-Friction,Rolling, Strumming,Other Intensity/Depth Moderate Body Position Hooklying Comments 0 deg ext, 120 deg flexion Increased swelling today. Recommended use of compression stockings during day Neuro Re-Education Treatment Balance Activities TUG Comments w/ spc 9.8 sec w/o AD 8.2 sec No inc sway or unsteadiness. SPV SLS Comments 10 sec on LLE 11 sec on RLE No hand support. Inc sway on R side Self-Care/Home Management Treatment Education Other Education Pt educated can use spc for community mobility but safe to not use spc for household mobility PT-OP-T Assessment and Plan Start: 06/08/24 13:05 Freq: Status: Active Protocol: Document 07/04/24 09:02 NM (Rec: 07/04/24 09:47 NM [id number]) Physical Therapy Assessment Goals 5 Impairment Lack of HEP Impairment . Fpc Goal (LTG) Pt will perform progressive HEP with I including alignment , flexibility, strengthening, balance and gait activities to improve strength and I. LTG Duration 8 weeks 4 Impairment Lack of left knee AROM Impairment . Food Photographer Goal (LTG) Pt will present with improved AROM left knee equal to right knee to improve standing, gait and transfers. LTG Duration 8 weeks 3 Impairment Evidence of balance impairment Impairment . Fpc Goal (LTG) Pt will perform at least 11 reps STS in 30 sec without UE support to improve functional balance for age. LTG Duration 8 weeks 2 Impairment Gait impairment Impairment . Food Photographer Goal (LTG) Pt will gait train at least 1581 feet in 6 minutes without AD to improve community ambulation and balance. LTG Duration 8 weeks 1 Impairment LEF score reflects 80% impairment Impairment . Fpc Goal (LTG) Pt will present with improved LEF score to reflect no more than 20% impairment to improve pain and quality of life. LTG Duration 8 weeks Assessment Summary Assessment Pt tolerated session well. Has 120 deg L knee flex at start of session. Progressed to 6 step up and leg press for both quad/glute strength and knee flexion ROM. Pt responds well to progressing therapeutic exercises. Initiated resisted stepping for increased glute strength and stability in gait . TUG times at 8 sec without AD, SLS 10 sec LLE. He reports 2/10 knee pain at end of session. Pt progressing appropriately and would continue to benefit from skilled PT for progressive strengthening for functional mobility. Physical Therapy Plan Frequency and Duration Frequency of Treatment 2x/Week Duration of treatment (weeks) 8 Plan of Care Start Date 06/13/24 Plan of Care End Date 08/15/24 Therapeutic Interventions Therapeutic Interventions Balance Training,Canalithic Repositioning,Coordination Training,Gait Training,Home Exercise Program,Joint Mobilizations,Manual Therapy, Neuromuscular Re-education, Patient/Caregiver Education, Self-Care/Home Management,Soft Tissue Mobilization,Taping, Therapeutic Activities, Therapeutic Exercises Modalities Cold Pack/Ice Massage,Electric Stimulation,Hot Packs, Ultrasound Next Visit Focus/Plan Next Note Type Treatment Note Next Visit Plan Upright bike warm-up, Assess nae to step ups and leg press, keep eye on orthostasis. Cont knee flex ROM. B and U squat on leg press, STS > buttock taps. Recheck HEP- update as needed; Cont SLR/quad strength, Trial standing TKE next session. Knee flexion ROM functionally and glute strength in sitting/ standing per POC: Progressive balance testing (TUG ) including SLS at end of progression, Review STS, other body weight exercises and balance activities
--- NOTE | 2024-07-06 10:39 | PT.OTN ---
Current Diagnoses Unilateral primary osteoarthritis, left knee (07/06/24) Physical Therapy Treatment Note PT-OP-A Visit Information Start: 06/08/24 13:05 Freq: Status: Active Protocol: Document 07/06/24 08:08 AB (Rec: 07/06/24 10:39 AB [id number]) Out-Patient Physical Therapy Visit Information Visit Information Visit Type Treatment Note Visit Note [employer] Medicare Visit [email or web address] Access Code: [email or web address] Progress note by 07/14/24 Anneliese Visit Start Time 09:03 Visit Stop Time 09:47 Visit Number 7 Number of ROOMING HOUSE INSPECTOR Visits 1 Evaluation Information Evaluation Date 06/13/24 Precautions Precautions Pt is on 325 mg aspirin twice a day PT-OP-B Current Condition Start: 06/08/24 13:05 Freq: Status: Active Protocol: Document 06/13/24 08:56 MB (Rec: 06/13/24 09:46 MB [id number]) Current Condition History of Current Condition Onset Date L TKA 06/06/24 Current Complaints General unsteadiness History of Current Condition Pt reports since surgery, he has a general unsteadiness. He initially has pain of 8/10 with standing and the pain decreases to 3/10 once he is up standing. His left leg feels like weight. Pt is waking up d/t pain at night. There are two steps to enter home with rail and he uses cane. He is taking Tramadol at night to help sleep. He is icing frequency. Pt would like to get back to walking, golfing, outdoor biking and boating. PMH includes right hip replacement and pacer Treatment Goals Patient/Caregiver Goals Decreased pain, improve steadiness, walking and range PT-OP-C Subjective Start: 06/08/24 13:05 Freq: Status: Active Protocol: Document 07/06/24 08:08 AB (Rec: 07/06/24 10:39 AB [id number]) OP-PT Subjective Patient Comments Patient Comments Patient reports that he woke up with the knee swollen, rates pain 3/10 ambulating into session with SPC. Patient reports he felt fine after using the leg press and performing step ups. AROM left knee lacking 5 deg extension to 121 deg flexion start of session. Patient reports he got dizzy yesterday and drank water and it resolved. Patient reports he drank water today, and has had no dizziness. PT-OP-G Mobility & Gait Start: 06/08/24 13:05 Freq: Status: Active Protocol: Document 06/13/24 08:56 MB (Rec: 06/13/24 09:46 MB [id number]) OP Gait Assessment Comments Gait Comments Better heel-to gait and step- through gait and gait speed with RW today compared to use of SPC in right hand and then step-length and speed are reduced as well as heel strike PT-OP-J Posture/Palpation/Skin Start: 06/08/24 13:05 Freq: Status: Active Protocol: Document 06/13/24 08:56 MB (Rec: 06/13/24 13:36 MB [id number]) Skin Assessment Other Assessments Skin Assessment Comments LLE with dressing over knee and also over fountain, edema, measured for compression hose and is currently size M for JOBST thigh high compression 15-20 mmHg PT-OP-K Range of Motion Start: 06/08/24 13:05 Freq: Status: Active Protocol: Document 06/13/24 08:56 MB (Rec: 06/13/24 09:46 MB [id number]) Knee Goniometric Range of Motion Knee Left Comments AROM supine 10-102 deg Right Comments AROM supine 4-122 deg PT-OP-M Strength Start: 06/08/24 13:05 Freq: Status: Active Protocol: Document 06/13/24 08:56 MB (Rec: 06/13/24 13:36 MB [id number]) Hip Strength Hip Manual Muscle Testing Left Flexion (L2) 4+ Good+ Adduction 5 Normal Right Flexion (L2) 5 Normal Abduction 5 Normal Knee Strength Knee Manual Muscle Testing Left Comments Deferred post-op and pt presents with extensor lag with SLR today Right Flexion (S2) 5 Normal Extension (L3) 5 Normal Ankle/Foot Strength Ankle and Foot Manual Muscle Testing Bilateral Dorsiflexion (L4) 5 Normal Comments Deferred heel raises to check PF strength today Toe Strength Toe Manual Muscle Testing Left Great Toe Extension 5 Normal Right Great Toe Extension 5 Normal PT-OP-Q Treatments Start: 06/08/24 13:05 Freq: Status: Active Protocol: Document 07/06/24 08:08 AB (Rec: 07/06/24 10:39 AB [id number]) Cardio Equipment Bicycle (Upright) Duration (Minutes) 5 Resistance 8 Seat Position 6 Other warm up Gym Equipment Shuttle Recovery unilateral Details 37# Reps/Time X15 each LE B squat Resistance 75# (2 navy) Reps/Time X15 X2 Therapeutic Exercises Supine Exercises HS stretch Supine Exercise Name hooklying holding LE behind knee with towel Side left Reps/Minutes 60 sec X 2 Comments Verba cues Basic TKR exercises Supine Exercise Name HEP review: 1. heel slide 2. SLR Reps/Minutes X10 each also HS on ball one minute this session. Comments post manual Sitting Exercises TKE Side left Resistance Level 3 band Reps/Minutes 15 x Manual Therapy Treatment Consent Patient gave verbal consent for manual Yes treatment Soft Tissue Mobilization L knee Body Location HS and quad for swelling and to area of inc dens, dec mob lat kne Intensity/Depth Moderate Body Position Hooklying PT-OP-T Assessment and Plan Start: 06/08/24 13:05 Freq: Status: Active Protocol: Document 07/06/24 08:08 AB (Rec: 07/06/24 10:39 AB [id number]) Physical Therapy Assessment Goals 5 Impairment Lack of HEP Impairment . Long-Term Goal (LTG) Pt will perform progressive HEP with I including alignment , flexibility, strengthening, balance and gait activities to improve strength and I. LTG Duration 8 weeks 4 Impairment Lack of left knee AROM Impairment . Long-Term Goal (LTG) Pt will present with improved AROM left knee equal to right knee to improve standing, gait and transfers. LTG Duration 8 weeks 3 Impairment Evidence of balance impairment Impairment . Long-Term Goal (LTG) Pt will perform at least 11 reps STS in 30 sec without UE support to improve functional balance for age. LTG Duration 8 weeks 2 Impairment Gait impairment Impairment . Long-Term Goal (LTG) Pt will gait train at least 1581 feet in 6 minutes without AD to improve community ambulation and balance. LTG Duration 8 weeks 1 Impairment LEF score reflects 80% impairment Impairment . Long-Term Goal (LTG) Pt will present with improved LEF score to reflect no more than 20% impairment to improve pain and quality of life. LTG Duration 8 weeks Assessment Summary Assessment Lacking 3 deg extension to 120 deg flexion AROM post manual and exercise. Reports increased pain with transition from flexion to ext lateral knee ( area of increased density, decreased tissue mobility.) post manual therapy , with additional STM to the area and strengthening reports pain with AROM flex ext eliminated. Akash rates pain 2/ 10 left knee ambulating out of session with SPC. Physical Therapy Plan Frequency and Duration Frequency of Treatment 2x/Week Duration of treatment (weeks) 8 Plan of Care Start Date 06/13/24 Plan of Care End Date 08/15/24 Next Visit Focus/Plan Next Note Type Treatment Note Next Visit Plan Upright bike warm-up, keep eye on orthostasis. Cont knee flex ROM. B and U squat on leg press, STS > buttock taps. Recheck HEP- update as needed; Cont SLR/quad strength, Trial standing TKE next session. Knee flexion ROM functionally and glute strength in sitting/ standing per POC: Progressive balance testing (TUG ) including SLS at end of progression, Review STS, other body weight exercises and balance activities
--- NOTE | 2024-07-10 09:43 | PT.OTN ---
Current Diagnoses Unilateral primary osteoarthritis, left knee (07/10/24) Physical Therapy Treatment Note PT-OP-A Visit Information Start: 06/08/24 13:05 Freq: Status: Active Protocol: Document 07/10/24 08:58 MB (Rec: 07/10/24 09:43 MB [id number]) Out-Patient Physical Therapy Visit Information Visit Information Visit Type Progress Note Visit Note Next prog note by 08/09/24 Visit Start Time 08:58 Visit Stop Time 09:38 Visit Number 8 Number of MATERIAL LISTER Visits 0 Evaluation Information Evaluation Date 06/13/24 Precautions Precautions Pt is on 325 mg aspirin twice a day PT-OP-B Current Condition Start: 06/08/24 13:05 Freq: Status: Active Protocol: Document 06/13/24 08:56 MB (Rec: 06/13/24 09:46 MB [id number]) Current Condition History of Current Condition Onset Date L TKA 06/06/24 Current Complaints General unsteadiness History of Current Condition Pt reports since surgery, he has a general unsteadiness. He initially has pain of 8/10 with standing and the pain decreases to 3/10 once he is up standing. His left leg feels like weight. Pt is waking up d/t pain at night. There are two steps to enter home with rail and he uses cane. He is taking Tramadol at night to help sleep. He is icing frequency. Pt would like to get back to walking, golfing, outdoor biking and boating. PMH includes right hip replacement and pacer Treatment Goals Patient/Caregiver Goals Decreased pain, improve steadiness, walking and range PT-OP-C Subjective Start: 06/08/24 13:05 Freq: Status: Active Protocol: Document 07/10/24 08:58 MB (Rec: 07/10/24 09:43 MB [id number]) OP-PT Subjective Patient Comments Patient Comments Pt states [place] and he has been doing outdoor walking. He takes the cane with him and doesn't use it. He dropped his cane into the ocean accidentally when using to close rand on boat. Sleeping is improved and his pain is a 2 today. PT-OP-G Mobility & Gait Start: 06/08/24 13:05 Freq: Status: Active Protocol: Document 06/13/24 08:56 MB (Rec: 06/13/24 09:46 MB [id number]) OP Gait Assessment Comments Gait Comments Better heel-to gait and step- through gait and gait speed with RW today compared to use of SPC in right hand and then step-length and speed are reduced as well as heel strike PT-OP-J Posture/Palpation/Skin Start: 06/08/24 13:05 Freq: Status: Active Protocol: Document 06/13/24 08:56 MB (Rec: 06/13/24 13:36 MB [id number]) Skin Assessment Other Assessments Skin Assessment Comments LLE with dressing over knee and also over fountain, edema, measured for compression hose and is currently size M for JOBST thigh high compression 15-20 mmHg PT-OP-K Range of Motion Start: 06/08/24 13:05 Freq: Status: Active Protocol: Document 06/13/24 08:56 MB (Rec: 06/13/24 09:46 MB [id number]) Knee Goniometric Range of Motion Knee Left Comments AROM supine 10-102 deg Right Comments AROM supine 4-122 deg PT-OP-M Strength Start: 06/08/24 13:05 Freq: Status: Active Protocol: Document 06/13/24 08:56 MB (Rec: 06/13/24 13:36 MB [id number]) Hip Strength Hip Manual Muscle Testing Left Flexion (L2) 4+ Good+ Adduction 5 Normal Right Flexion (L2) 5 Normal Abduction 5 Normal Knee Strength Knee Manual Muscle Testing Left Comments Deferred post-op and pt presents with extensor lag with SLR today Right Flexion (S2) 5 Normal Extension (L3) 5 Normal Ankle/Foot Strength Ankle and Foot Manual Muscle Testing Bilateral Dorsiflexion (L4) 5 Normal Comments Deferred heel raises to check PF strength today Toe Strength Toe Manual Muscle Testing Left Great Toe Extension 5 Normal Right Great Toe Extension 5 Normal PT-OP-Q Treatments Start: 06/08/24 13:05 Freq: Status: Active Protocol: Document 07/10/24 08:58 MB (Rec: 07/10/24 09:43 MB [id number]) Cardio Equipment Bicycle (Upright) Duration (Minutes) 10 Resistance 10 Seat Position 6 Therapeutic Exercises Sitting Exercises sit to stand Sitting Exercise Name HEP and wrote out for pt Resistance Teal band looped around knees Comments 30 sec today 15 reps, provided band for knees to do at home, dizzy Manual Therapy Treatment Consent Patient gave verbal consent for manual Yes treatment Other Other Manual Treatments Pt supine with head and legs supported: STM and positional release left rectus and TrP treatment Self-Care/Home Management Treatment Education Other Education Orthostatic assessment after dizzy after STS: LUE supine: 131/77, 74; standing 88/56, 93; standing 1 ': 102/60, 89. PT-OP-T Assessment and Plan Start: 06/08/24 13:05 Freq: Status: Active Protocol: Document 07/10/24 08:58 MB (Rec: 07/10/24 09:43 MB [id number]) Physical Therapy Assessment Goals 5 Impairment Lack of HEP Impairment . Kiln Tester Goal (LTG) Pt will perform progressive HEP with I including alignment , flexibility, strengthening, balance and gait activities to improve strength and I. 07/10/24: Pt is performing HEP and does not have questions today LTG Duration 8 weeks 4 Impairment Lack of left knee AROM Impairment . Senior Care Goal (LTG) Pt will present with improved AROM left knee equal to right knee to improve standing, gait and transfers. 07/10/24: AROM supine left: 4- 121 deg; right 4-134 deg. LTG Duration 8 weeks 3 Impairment Evidence of balance impairment Impairment . Kiln Tester Goal (LTG) Pt will perform at least 11 reps STS in 30 sec without UE support to improve functional balance for age. 07/10/24: Pt performs 15 reps in 30 sec LTG Duration Surpassed 2 Impairment Gait impairment Impairment . Senior Care Goal (LTG) Pt will gait train at least 1581 feet in 6 minutes without AD to improve community ambulation and balance. 07/10/24: Pt gait trains 1371 feet in 6 minutes. He has some left knee fatigue and he scuffs right foot twice during gait LTG Duration 8 weeks 1 Impairment LEF score reflects 80% impairment Impairment . Kiln Tester Goal (LTG) Pt will present with improved LEF score to reflect no more than 20% impairment to improve pain and quality of life. 07/10/24: LEF reflects 31.25% impairment LTG Duration 8 weeks Assessment Summary Assessment Pt has progressed towards exercise, 6MWT, ROM and LEF goals since starting PT. He has met 30 sec STS goal. Con't per plan below. Added 30 sec STS with band around knees for HEP today. Pt reports dizziness with STS and he con' t with severe orthostatic hypotension. Will send this note to PCP, Dr. Carrington. Physical Therapy Plan Frequency and Duration Frequency of Treatment 2x/Week Duration of treatment (weeks) 8 Plan of Care Start Date 06/13/24 Plan of Care End Date 08/15/24 Next Visit Focus/Plan Next Note Type Treatment Note Next Visit Plan Similar: Upright bike warm-up, keep eye on orthostasis. Cont knee flex ROM. B and U squat on leg press, STS > buttock taps. Recheck HEP- update as needed; Cont SLR/quad strength, Trial standing TKE next session. Knee flexion ROM functionally and glute strength in sitting/ standing per POC: Progressive balance testing (TUG ) including SLS at end of progression, Review STS, other body weight exercises and balance activities
--- NOTE | 2024-07-12 09:43 | PT.OTN ---
Current Diagnoses Unilateral primary osteoarthritis, left knee (07/12/24) Physical Therapy Treatment Note PT-OP-A Visit Information Start: 06/08/24 13:05 Freq: Status: Active Protocol: Document 07/12/24 09:02 MB (Rec: 07/12/24 09:30 MB [id number]) Out-Patient Physical Therapy Visit Information Visit Information Visit Type Treatment Note Visit Note Next prog note by 08/09/24 Visit Start Time 09:02 Visit Stop Time 09:42 Visit Number [address] Evaluation Information Evaluation Date 06/13/24 Precautions Precautions Pt is on 325 mg aspirin twice a day PT-OP-B Current Condition Start: 06/08/24 13:05 Freq: Status: Active Protocol: Document 06/13/24 08:56 MB (Rec: 06/13/24 09:46 MB [id number]) Current Condition History of Current Condition Onset Date L TKA 06/06/24 Current Complaints General unsteadiness History of Current Condition Pt reports since surgery, he has a general unsteadiness. He initially has pain of 8/10 with standing and the pain decreases to 3/10 once he is up standing. His left leg feels like weight. Pt is waking up d/t pain at night. There are two steps to enter home with rail and he uses cane. He is taking Tramadol at night to help sleep. He is icing frequency. Pt would like to get back to walking, golfing, outdoor biking and boating. PMH includes right hip replacement and pacer Treatment Goals Patient/Caregiver Goals Decreased pain, improve steadiness, walking and range PT-OP-C Subjective Start: 06/08/24 13:05 Freq: Status: Active Protocol: Document 07/12/24 09:02 MB (Rec: 07/12/24 09:30 MB [id number]) OP-PT Subjective Patient Comments Patient Comments Pt stopped all pain medication except Tylenol. The left knee pain is down to a tooth ache . PT-OP-G Mobility & Gait Start: 06/08/24 13:05 Freq: Status: Active Protocol: Document 06/13/24 08:56 MB (Rec: 06/13/24 09:46 MB [id number]) OP Gait Assessment Comments Gait Comments Better heel-to gait and step- through gait and gait speed with RW today compared to use of SPC in right hand and then step-length and speed are reduced as well as heel strike PT-OP-J Posture/Palpation/Skin Start: 06/08/24 13:05 Freq: Status: Active Protocol: Document 06/13/24 08:56 MB (Rec: 06/13/24 13:36 MB [id number]) Skin Assessment Other Assessments Skin Assessment Comments LLE with dressing over knee and also over fountain, edema, measured for compression hose and is currently size M for JOBST thigh high compression 15-20 mmHg PT-OP-K Range of Motion Start: 06/08/24 13:05 Freq: Status: Active Protocol: Document 06/13/24 08:56 MB (Rec: 06/13/24 09:46 MB [id number]) Knee Goniometric Range of Motion Knee Left Comments AROM supine 10-102 deg Right Comments AROM supine 4-122 deg PT-OP-M Strength Start: 06/08/24 13:05 Freq: Status: Active Protocol: Document 06/13/24 08:56 MB (Rec: 06/13/24 13:36 MB [id number]) Hip Strength Hip Manual Muscle Testing Left Flexion (L2) 4+ Good+ Adduction 5 Normal Right Flexion (L2) 5 Normal Abduction 5 Normal Knee Strength Knee Manual Muscle Testing Left Comments Deferred post-op and pt presents with extensor lag with SLR today Right Flexion (S2) 5 Normal Extension (L3) 5 Normal Ankle/Foot Strength Ankle and Foot Manual Muscle Testing Bilateral Dorsiflexion (L4) 5 Normal Comments Deferred heel raises to check PF strength today Toe Strength Toe Manual Muscle Testing Left Great Toe Extension 5 Normal Right Great Toe Extension 5 Normal PT-OP-Q Treatments Start: 06/08/24 13:05 Freq: Status: Active Protocol: Document 07/12/24 09:02 MB (Rec: 07/12/24 09:30 MB [id number]) Cardio Equipment Bicycle (Upright) Duration (Minutes) 10 Resistance 10 Seat Position 6 Therapeutic Exercises Standing Exercises PF stretches Standing Exercise Name HEP and HO provided Side bilateral Comments PF stretch, knee straight and bent, 30 sec hold each leg Wall slide squat Standing Exercise Name HEP and HO Side bilateral Equipment Used Teal band around proximal knees Comments Slow count down and up resisted stepping Standing Exercise Name HEP and HO Side bilateral Equipment Used Teal band around ankles Comments Side stepping right and left and backwards stepping Manual Therapy Treatment Consent Patient gave verbal consent for manual Yes treatment Other Other Manual Treatments Pt supine with head and legs supported: STM with cream left quads, hamstrings and calf muscles PT-OP-T Assessment and Plan Start: 06/08/24 13:05 Freq: Status: Active Protocol: Document 07/12/24 09:02 MB (Rec: 07/12/24 09:30 MB [id number]) Physical Therapy Assessment Goals 5 Impairment Lack of HEP Impairment . Gluing Machine Operator Goal (LTG) Pt will perform progressive HEP with I including alignment , flexibility, strengthening, balance and gait activities to improve strength and I. 07/10/24: Pt is performing HEP and does not have questions today LTG Duration 8 weeks 4 Impairment Lack of left knee AROM Impairment . Assisted Goal (LTG) Pt will present with improved AROM left knee equal to right knee to improve standing, gait and transfers. 07/10/24: AROM supine left: 4- 121 deg; right 4-134 deg. LTG Duration 8 weeks 2 Impairment Gait impairment Impairment . Gluing Machine Operator Goal (LTG) Pt will gait train at least 1581 feet in 6 minutes without AD to improve community ambulation and balance. 07/10/24: Pt gait trains 1371 feet in 6 minutes. He has some left knee fatigue and he scuffs right foot twice during gait LTG Duration 8 weeks 1 Impairment LEF score reflects 80% impairment Impairment . Gluing Machine Operator Goal (LTG) Pt will present with improved LEF score to reflect no more than 20% impairment to improve pain and quality of life. 07/10/24: LEF reflects 31.25% impairment LTG Duration 8 weeks Assessment Summary Assessment C/o light-headedness with biking today and BP and HR in LUE in standing after bikin/68, 142 and PT checks pulse radially. Pt with tremor RUE today and he states he has an essential tremor and he is out of medication and he occ has tremor in LUE. Con't to monitor BP. Progressed strengthening today. Increased tension medial left hamstrings and PFs today. Physical Therapy Plan Frequency and Duration Frequency of Treatment 2x/Week Duration of treatment (weeks) 8 Plan of Care Start Date 06/13/24 Plan of Care End Date 08/15/24 Other Referrals/Consults Referrals/Consults Recommended PCP or geophysical computer to address orthostasis and light- headedness. PT has sent two notes to PCP and PT asks pt to communicate with PCP office Next Visit Focus/Plan Next Note Type Treatment Note Next Visit Plan Similar: Upright bike warm-up, keep eye on orthostasis. Con' t manual work with needs rectus, medial hamstrings and PFs. Consider hamstring stretch with AP in supine and Alex stretch. Review HEP and take out what he doesn't need to do anymore. Progress balance exercises including trying tandem and SLS, consider golfer's lift for core and balance exercise
--- NOTE | 2024-07-18 10:38 | PT.OTN ---
Current Diagnoses Unilateral primary osteoarthritis, left knee (07/18/24) Physical Therapy Treatment Note PT-OP-A Visit Information Start: 06/08/24 13:05 Freq: Status: Active Protocol: Document 07/18/24 08:21 AB (Rec: 07/18/24 10:37 AB [id number]) Out-Patient Physical Therapy Visit Information Visit Information Visit Type Treatment Note Visit Note Next prog note by 08/09/24 Visit Start Time 09:49 Visit Stop Time 10:32 Visit Number 10 Number of BRIDGE MAINTAINER Visits 1 Evaluation Information Evaluation Date 06/13/24 Precautions Precautions Pt is on 325 mg aspirin twice a day PT-OP-B Current Condition Start: 06/08/24 13:05 Freq: Status: Active Protocol: Document 06/13/24 08:56 MB (Rec: 06/13/24 09:46 MB [id number]) Current Condition History of Current Condition Onset Date L TKA 06/06/24 Current Complaints General unsteadiness History of Current Condition Pt reports since surgery, he has a general unsteadiness. He initially has pain of 8/10 with standing and the pain decreases to 3/10 once he is up standing. His left leg feels like weight. Pt is waking up d/t pain at night. There are two steps to enter home with rail and he uses cane. He is taking Tramadol at night to help sleep. He is icing frequency. Pt would like to get back to walking, golfing, outdoor biking and boating. PMH includes right hip replacement and pacer Treatment Goals Patient/Caregiver Goals Decreased pain, improve steadiness, walking and range PT-OP-C Subjective Start: 06/08/24 13:05 Freq: Status: Active Protocol: Document 07/18/24 08:21 AB (Rec: 07/18/24 10:37 AB [id number]) OP-PT Subjective Patient Comments Patient Comments Patient rates discomfort less than 2/10 left knee. Patient reports he had to get up from the floor from lowering oven racks at home and had to use increaesed UE use due to not sure how much force to put on the knee. AROM left knee lacking 4 deg ext to 117 deg flexion post bike. Patient reports forgetting to bring in HEP PT-OP-G Mobility & Gait Start: 06/08/24 13:05 Freq: Status: Active Protocol: Document 06/13/24 08:56 MB (Rec: 06/13/24 09:46 MB [id number]) OP Gait Assessment Comments Gait Comments Better heel-to gait and step- through gait and gait speed with RW today compared to use of SPC in right hand and then step-length and speed are reduced as well as heel strike PT-OP-J Posture/Palpation/Skin Start: 06/08/24 13:05 Freq: Status: Active Protocol: Document 06/13/24 08:56 MB (Rec: 06/13/24 13:36 MB [id number]) Skin Assessment Other Assessments Skin Assessment Comments LLE with dressing over knee and also over fountain, edema, measured for compression hose and is currently size M for JOBST thigh high compression 15-20 mmHg PT-OP-K Range of Motion Start: 06/08/24 13:05 Freq: Status: Active Protocol: Document 06/13/24 08:56 MB (Rec: 06/13/24 09:46 MB [id number]) Knee Goniometric Range of Motion Knee Left Comments AROM supine 10-102 deg Right Comments AROM supine 4-122 deg PT-OP-M Strength Start: 06/08/24 13:05 Freq: Status: Active Protocol: Document 06/13/24 08:56 MB (Rec: 06/13/24 13:36 MB [id number]) Hip Strength Hip Manual Muscle Testing Left Flexion (L2) 4+ Good+ Adduction 5 Normal Right Flexion (L2) 5 Normal Abduction 5 Normal Knee Strength Knee Manual Muscle Testing Left Comments Deferred post-op and pt presents with extensor lag with SLR today Right Flexion (S2) 5 Normal Extension (L3) 5 Normal Ankle/Foot Strength Ankle and Foot Manual Muscle Testing Bilateral Dorsiflexion (L4) 5 Normal Comments Deferred heel raises to check PF strength today Toe Strength Toe Manual Muscle Testing Left Great Toe Extension 5 Normal Right Great Toe Extension 5 Normal PT-OP-Q Treatments Start: 06/08/24 13:05 Freq: Status: Active Protocol: Document 07/18/24 08:21 AB (Rec: 07/18/24 10:37 AB [id number]) Cardio Equipment Bicycle (Upright) Duration (Minutes) 10 Resistance 10 Seat Position 6 Gym Equipment Shuttle Balance red CGA Details normal DOMENIC with head turns and scanning, then stagger stance Reps/Duration 2 min Therapeutic Exercises Supine Exercises HS stretch Supine Exercise Name hooklying holding LE behind knee with towel Side left Reps/Minutes 60 sec X 2 Comments Verba cues Basic TKR exercises Supine Exercise Name HEP review: 1. heel slide 2. SLR Side left Reps/Minutes 1. X10 2. X 10 and X 5 Comments post manual Sitting Exercises hip abduction Sitting Exercise Name isometric hold HEP Side bilateral Resistance level 4 band 4 band to HEP Reps/Minutes 60 Manual Therapy Treatment Consent Patient gave verbal consent for manual Yes treatment Soft Tissue Mobilization L knee Body Location HS and quad for swelling and to area of inc dens, dec mob lat kne Intensity/Depth Moderate Body Position Hooklying Comments and superfical Neuro Re-Education Treatment Balance Activities SLS Details without UE use with CGA Comments 4, 7 sec pre seated hip abd with band 15+ seconds post Self-Care/Home Management Treatment Education Other Education Visual demonstration of floor recovery floor to chair to standing, not performed due to scab inferior patella left LE . BP post bike right UE [id number] HR 70 standing 118/76 HR 75 PT-OP-T Assessment and Plan Start: 06/08/24 13:05 Freq: Status: Active Protocol: Document 07/18/24 08:21 AB (Rec: 07/18/24 10:37 AB [id number]) Physical Therapy Assessment Goals 5 Impairment Lack of HEP Impairment . Strike Warfare/Missile Systems Officer Goal (LTG) Pt will perform progressive HEP with I including alignment , flexibility, strengthening, balance and gait activities to improve strength and I. 07/10/24: Pt is performing HEP and does not have questions today LTG Duration 8 weeks 4 Impairment Lack of left knee AROM Impairment . Strike Warfare/Missile Systems Officer Goal (LTG) Pt will present with improved AROM left knee equal to right knee to improve standing, gait and transfers. 07/10/24: AROM supine left: 4- 121 deg; right 4-134 deg. LTG Duration 8 weeks 2 Impairment Gait impairment Impairment . Strike Warfare/Missile Systems Officer Goal (LTG) Pt will gait train at least 1581 feet in 6 minutes without AD to improve community ambulation and balance. 07/10/24: Pt gait trains 1371 feet in 6 minutes. He has some left knee fatigue and he scuffs right foot twice during gait LTG Duration 8 weeks 1 Impairment LEF score reflects 80% impairment Impairment . Detention Goal (LTG) Pt will present with improved LEF score to reflect no more than 20% impairment to improve pain and quality of life. 07/10/24: LEF reflects 31.25% impairment LTG Duration 8 weeks Assessment Summary Assessment AROM left knee 0 to 120 post manual and exercise, SLS without UE use increased to 15 + seconds post seated hip abd with band for one minute. Patient reports pain remains less than 2/10 left knee end of session. Physical Therapy Plan Frequency and Duration Frequency of Treatment 2x/Week Duration of treatment (weeks) 8 Plan of Care Start Date 06/13/24 Plan of Care End Date 08/15/24 Next Visit Focus/Plan Next Note Type Treatment Note Next Visit Plan Similar: Upright bike warm-up, keep eye on orthostasis. Con' t manual work with needs rectus, medial hamstrings and PFs. Consider hamstring stretch with AP in supine and Alex stretch. Review HEP and take out what he doesn't need to do anymore. Progress balance exercises including trying tandem and SLS, consider golfer's lift for core and balance exercise
--- NOTE | 2024-07-18 10:48 | PT.OTN ---
Current Diagnoses Unilateral primary osteoarthritis, left knee (07/18/24) Physical Therapy Treatment Note PT-OP-A Visit Information Start: 06/08/24 13:05 Freq: Status: Active Protocol: Document 07/18/24 08:21 AB (Rec: 07/18/24 10:37 AB [id number]) Out-Patient Physical Therapy Visit Information Visit Information Visit Type Treatment Note Visit Note Next prog note by 08/09/24 Visit Start Time 09:49 Visit Stop Time 10:32 Visit Number 10 Number of BEE TENDER Visits 1 Evaluation Information Evaluation Date 06/13/24 Precautions Precautions Pt is on 325 mg aspirin twice a day PT-OP-B Current Condition Start: 06/08/24 13:05 Freq: Status: Active Protocol: Document 06/13/24 08:56 MB (Rec: 06/13/24 09:46 MB [id number]) Current Condition History of Current Condition Onset Date L TKA 06/06/24 Current Complaints General unsteadiness History of Current Condition Pt reports since surgery, he has a general unsteadiness. He initially has pain of 8/10 with standing and the pain decreases to 3/10 once he is up standing. His left leg feels like weight. Pt is waking up d/t pain at night. There are two steps to enter home with rail and he uses cane. He is taking Tramadol at night to help sleep. He is icing frequency. Pt would like to get back to walking, golfing, outdoor biking and boating. PMH includes right hip replacement and pacer Treatment Goals Patient/Caregiver Goals Decreased pain, improve steadiness, walking and range PT-OP-C Subjective Start: 06/08/24 13:05 Freq: Status: Active Protocol: Document 07/18/24 08:21 AB (Rec: 07/18/24 10:37 AB [id number]) OP-PT Subjective Patient Comments Patient Comments Patient rates discomfort less than 2/10 left knee. Patient reports he had to get up from the floor from lowering oven racks at home and had to use increaesed UE use due to not sure how much force to put on the knee. AROM left knee lacking 4 deg ext to 117 deg flexion post bike. Patient reports forgetting to bring in HEP PT-OP-G Mobility & Gait Start: 06/08/24 13:05 Freq: Status: Active Protocol: Document 06/13/24 08:56 MB (Rec: 06/13/24 09:46 MB [id number]) OP Gait Assessment Comments Gait Comments Better heel-to gait and step- through gait and gait speed with RW today compared to use of SPC in right hand and then step-length and speed are reduced as well as heel strike PT-OP-J Posture/Palpation/Skin Start: 06/08/24 13:05 Freq: Status: Active Protocol: Document 06/13/24 08:56 MB (Rec: 06/13/24 13:36 MB [id number]) Skin Assessment Other Assessments Skin Assessment Comments LLE with dressing over knee and also over fountain, edema, measured for compression hose and is currently size M for JOBST thigh high compression 15-20 mmHg PT-OP-K Range of Motion Start: 06/08/24 13:05 Freq: Status: Active Protocol: Document 06/13/24 08:56 MB (Rec: 06/13/24 09:46 MB [id number]) Knee Goniometric Range of Motion Knee Left Comments AROM supine 10-102 deg Right Comments AROM supine 4-122 deg PT-OP-M Strength Start: 06/08/24 13:05 Freq: Status: Active Protocol: Document 06/13/24 08:56 MB (Rec: 06/13/24 13:36 MB [id number]) Hip Strength Hip Manual Muscle Testing Left Flexion (L2) 4+ Good+ Adduction 5 Normal Right Flexion (L2) 5 Normal Abduction 5 Normal Knee Strength Knee Manual Muscle Testing Left Comments Deferred post-op and pt presents with extensor lag with SLR today Right Flexion (S2) 5 Normal Extension (L3) 5 Normal Ankle/Foot Strength Ankle and Foot Manual Muscle Testing Bilateral Dorsiflexion (L4) 5 Normal Comments Deferred heel raises to check PF strength today Toe Strength Toe Manual Muscle Testing Left Great Toe Extension 5 Normal Right Great Toe Extension 5 Normal PT-OP-Q Treatments Start: 06/08/24 13:05 Freq: Status: Active Protocol: Document 07/18/24 08:21 AB (Rec: 07/18/24 10:37 AB [id number]) Cardio Equipment Bicycle (Upright) Duration (Minutes) 10 Resistance 10 Seat Position 6 Gym Equipment Shuttle Balance red CGA Details normal DOMENIC with head turns and scanning, then stagger stance Reps/Duration 2 min Therapeutic Exercises Supine Exercises HS stretch Supine Exercise Name hooklying holding LE behind knee with towel Side left Reps/Minutes 60 sec X 2 Comments Verba cues Basic TKR exercises Supine Exercise Name HEP review: 1. heel slide 2. SLR Side left Reps/Minutes 1. X10 2. X 10 and X 5 Comments post manual Sitting Exercises hip abduction Sitting Exercise Name isometric hold HEP Side bilateral Resistance level 4 band 4 band to HEP Reps/Minutes 60 Manual Therapy Treatment Consent Patient gave verbal consent for manual Yes treatment Soft Tissue Mobilization L knee Body Location HS and quad for swelling and to area of inc dens, dec mob lat kne Intensity/Depth Moderate Body Position Hooklying Comments and superfical Neuro Re-Education Treatment Balance Activities SLS Details without UE use with CGA Comments 4, 7 sec pre seated hip abd with band 15+ seconds post Self-Care/Home Management Treatment Education Other Education Visual demonstration of floor recovery floor to chair to standing, not performed due to scab inferior patella left LE . BP post bike right UE /77 HR 70 standing 118/76 HR 75 PT-OP-T Assessment and Plan Start: 06/08/24 13:05 Freq: Status: Active Protocol: Document 07/18/24 08:21 AB (Rec: 07/18/24 10:37 AB [id number]) Physical Therapy Assessment Goals 5 Impairment Lack of HEP Impairment . Rag Willow Operator Goal (LTG) Pt will perform progressive HEP with I including alignment , flexibility, strengthening, balance and gait activities to improve strength and I. 07/10/24: Pt is performing HEP and does not have questions today LTG Duration 8 weeks 4 Impairment Lack of left knee AROM Impairment . Rag Willow Operator Goal (LTG) Pt will present with improved AROM left knee equal to right knee to improve standing, gait and transfers. 07/10/24: AROM supine left: 4- 121 deg; right 4-134 deg. LTG Duration 8 weeks 2 Impairment Gait impairment Impairment . Rag Willow Operator Goal (LTG) Pt will gait train at least 1581 feet in 6 minutes without AD to improve community ambulation and balance. 07/10/24: Pt gait trains 1371 feet in 6 minutes. He has some left knee fatigue and he scuffs right foot twice during gait LTG Duration 8 weeks 1 Impairment LEF score reflects 80% impairment Impairment . Intermediate Goal (LTG) Pt will present with improved LEF score to reflect no more than 20% impairment to improve pain and quality of life. 07/10/24: LEF reflects 31.25% impairment LTG Duration 8 weeks Assessment Summary Assessment AROM left knee 0 to 120 post manual and exercise, SLS without UE use increased to 15 + seconds post seated hip abd with band for one minute. Patient reports pain remains less than 2/10 left knee end of session. Physical Therapy Plan Frequency and Duration Frequency of Treatment 2x/Week Duration of treatment (weeks) 8 Plan of Care Start Date 06/13/24 Plan of Care End Date 08/15/24 Next Visit Focus/Plan Next Note Type Treatment Note Next Visit Plan Similar: Upright bike warm-up, keep eye on orthostasis. Con' t manual work with needs rectus, medial hamstrings and PFs. Consider hamstring stretch with AP in supine and Alex stretch. Review HEP and take out what he doesn't need to do anymore. Progress balance exercises including trying tandem and SLS, consider golfer's lift for core and balance exercise
--- NOTE | 2024-07-21 10:47 | PT.OTN ---
Current Diagnoses Unilateral primary osteoarthritis, left knee (07/21/24) Physical Therapy Treatment Note PT-OP-A Visit Information Start: 06/08/24 13:05 Freq: Status: Active Protocol: Document 07/21/24 08:06 AB (Rec: 07/21/24 10:46 AB [id number]) Out-Patient Physical Therapy Visit Information Visit Information Visit Type Treatment Note Visit Note Next prog note by 08/09/24 Visit Start Time 09:01 Visit Stop Time 09:45 Visit Number 11 Number of SEAFOOD FISHERMAN Visits 2 Evaluation Information Evaluation Date 06/13/24 Precautions Precautions Pt is on 325 mg aspirin twice a day PT-OP-B Current Condition Start: 06/08/24 13:05 Freq: Status: Active Protocol: Document 06/13/24 08:56 MB (Rec: 06/13/24 09:46 MB [id number]) Current Condition History of Current Condition Onset Date L TKA 06/06/24 Current Complaints General unsteadiness History of Current Condition Pt reports since surgery, he has a general unsteadiness. He initially has pain of 8/10 with standing and the pain decreases to 3/10 once he is up standing. His left leg feels like weight. Pt is waking up d/t pain at night. There are two steps to enter home with rail and he uses cane. He is taking Tramadol at night to help sleep. He is icing frequency. Pt would like to get back to walking, golfing, outdoor biking and boating. PMH includes right hip replacement and pacer Treatment Goals Patient/Caregiver Goals Decreased pain, improve steadiness, walking and range PT-OP-C Subjective Start: 06/08/24 13:05 Freq: Status: Active Protocol: Document 07/21/24 08:06 AB (Rec: 07/21/24 10:46 AB [id number]) OP-PT Subjective Patient Comments Patient Comments Patient rates left knee pain 1 /10 start of session. Patient reports knee pain and swelling increased end of walking hills, cites end of walking uphil. lacking 3 deg ext to 117 deg flexion left knee AROM start of session PT-OP-G Mobility & Gait Start: 06/08/24 13:05 Freq: Status: Active Protocol: Document 06/13/24 08:56 MB (Rec: 06/13/24 09:46 MB [id number]) OP Gait Assessment Comments Gait Comments Better heel-to gait and step- through gait and gait speed with RW today compared to use of SPC in right hand and then step-length and speed are reduced as well as heel strike PT-OP-J Posture/Palpation/Skin Start: 06/08/24 13:05 Freq: Status: Active Protocol: Document 06/13/24 08:56 MB (Rec: 06/13/24 13:36 MB [id number]) Skin Assessment Other Assessments Skin Assessment Comments LLE with dressing over knee and also over fountain, edema, measured for compression hose and is currently size M for JOBST thigh high compression 15-20 mmHg PT-OP-K Range of Motion Start: 06/08/24 13:05 Freq: Status: Active Protocol: Document 06/13/24 08:56 MB (Rec: 06/13/24 09:46 MB [id number]) Knee Goniometric Range of Motion Knee Left Comments AROM supine 10-102 deg Right Comments AROM supine 4-122 deg PT-OP-M Strength Start: 06/08/24 13:05 Freq: Status: Active Protocol: Document 06/13/24 08:56 MB (Rec: 06/13/24 13:36 MB [id number]) Hip Strength Hip Manual Muscle Testing Left Flexion (L2) 4+ Good+ Adduction 5 Normal Right Flexion (L2) 5 Normal Abduction 5 Normal Knee Strength Knee Manual Muscle Testing Left Comments Deferred post-op and pt presents with extensor lag with SLR today Right Flexion (S2) 5 Normal Extension (L3) 5 Normal Ankle/Foot Strength Ankle and Foot Manual Muscle Testing Bilateral Dorsiflexion (L4) 5 Normal Comments Deferred heel raises to check PF strength today Toe Strength Toe Manual Muscle Testing Left Great Toe Extension 5 Normal Right Great Toe Extension 5 Normal PT-OP-Q Treatments Start: 06/08/24 13:05 Freq: Status: Active Protocol: Document 07/21/24 08:06 AB (Rec: 07/21/24 10:46 AB [id number]) Cardio Equipment Bicycle (Upright) Duration (Minutes) 7 Resistance 10 Seat Position 6 and 8 Therapeutic Exercises Supine Exercises HS stretch Supine Exercise Name hooklying holding LE behind knee with towel Side left Reps/Minutes 60 sec X 2 Comments Verbal cues Pre SLR perf due to into session with dec ROM Basic TKR exercises Supine Exercise Name HEP review: 1. heel slide 2. SLR Side left Reps/Minutes 1. X10 X 3 2. Performed post HS stretches X10 X 3 Comments for Neuro re ed post HS stretch and HS due to into session with dec ROM Sitting Exercises HS stretch with step Sitting Exercise Name with strap Reps/Minutes one to 2 min Comments SLR performed post hip abduction Sitting Exercise Name isometric hold HEP Side bilateral Resistance level 4 band 4 band to HEP Reps/Minutes 60 Standing Exercises Wall slide squat Standing Exercise Name HEP and HO Side bilateral Equipment Used level 4 band Reps/Minutes X10 Comments Slow count down and up resisted stepping Standing Exercise Name HEP and HO Side bilateral Equipment Used level 4 band Reps/Minutes retro 8 feet X7 with UE support near Comments Side stepping right and left and backwards stepping Neuro Re-Education Treatment Balance Activities golfers lift Details CGA and performed near UE support Reps/Duration X10 each LE Comments Verbal and visual cues SLS Details without UE use with CGA Reps/Duration X5 Comments with and without head turns and visua scanning PT-OP-T Assessment and Plan Start: 06/08/24 13:05 Freq: Status: Active Protocol: Document 07/21/24 08:06 AB (Rec: 07/21/24 10:46 AB [id number]) Physical Therapy Assessment Goals 5 Impairment Lack of HEP Impairment . Keyboard Operator Goal (LTG) Pt will perform progressive HEP with I including alignment , flexibility, strengthening, balance and gait activities to improve strength and I. 07/10/24: Pt is performing HEP and does not have questions today LTG Duration 8 weeks 4 Impairment Lack of left knee AROM Impairment . Keyboard Operator Goal (LTG) Pt will present with improved AROM left knee equal to right knee to improve standing, gait and transfers. 07/10/24: AROM supine left: 4- 121 deg; right 4-134 deg. LTG Duration 8 weeks 2 Impairment Gait impairment Impairment . Half-Way Goal (LTG) Pt will gait train at least 1581 feet in 6 minutes without AD to improve community ambulation and balance. 07/10/24: Pt gait trains 1371 feet in 6 minutes. He has some left knee fatigue and he scuffs right foot twice during gait LTG Duration 8 weeks 1 Impairment LEF score reflects 80% impairment Impairment . Keyboard Operator Goal (LTG) Pt will present with improved LEF score to reflect no more than 20% impairment to improve pain and quality of life. 07/10/24: LEF reflects 31.25% impairment LTG Duration 8 weeks Assessment Summary Assessment AROM left knee 0 to 120 post manual and exercise, likely contribution to dec in AROM between sessions is visible decreased right knee extension .Rating less than 1/10 pain left knee end of session. SLS 15+ seconds but dec to 3-4 seconds with head turns and visual scanning. Physical Therapy Plan Frequency and Duration Frequency of Treatment 2x/Week Duration of treatment (weeks) 8 Plan of Care Start Date 06/13/24 Plan of Care End Date 08/15/24 Next Visit Focus/Plan Next Note Type Treatment Note Next Visit Plan Similar: Upright bike warm-up, keep eye on orthostasis. Con' t manual work with needs rectus, medial hamstrings and PFs. Consider hamstring stretch with AP in supine and Alex stretch. Review HEP and take out what he doesn't need to do anymore. Progress balance exercises including trying tandem and SLS, revisit golfer's lift for core and balance exercise
--- NOTE | 2024-07-25 09:42 | PT.OTN ---
Current Diagnoses Unilateral primary osteoarthritis, left knee (07/25/24) Physical Therapy Treatment Note PT-OP-A Visit Information Start: 06/08/24 13:05 Freq: Status: Active Protocol: Document 07/25/24 09:01 MB (Rec: 07/25/24 09:30 MB [id number]) Out-Patient Physical Therapy Visit Information Visit Information Visit Type Treatment Note Visit Note Next prog note by 08/09/24 Pt would like to complete PT by end of the year Visit Start Time 09:01 Visit Stop Time 09:41 Visit Number 12 Number of FIBER PRODUCT CUTTING MACHINE OPERATOR Visits 3 Evaluation Information Evaluation Date 06/13/24 Precautions Precautions Pt is on 325 mg aspirin twice a day PT-OP-B Current Condition Start: 06/08/24 13:05 Freq: Status: Active Protocol: Document 06/13/24 08:56 MB (Rec: 06/13/24 09:46 MB [id number]) Current Condition History of Current Condition Onset Date L TKA 06/06/24 Current Complaints General unsteadiness History of Current Condition Pt reports since surgery, he has a general unsteadiness. He initially has pain of 8/10 with standing and the pain decreases to 3/10 once he is up standing. His left leg feels like weight. Pt is waking up d/t pain at night. There are two steps to enter home with rail and he uses cane. He is taking Tramadol at night to help sleep. He is icing frequency. Pt would like to get back to walking, golfing, outdoor biking and boating. PMH includes right hip replacement and pacer Treatment Goals Patient/Caregiver Goals Decreased pain, improve steadiness, walking and range PT-OP-C Subjective Start: 06/08/24 13:05 Freq: Status: Active Protocol: Document 07/25/24 09:01 MB (Rec: 07/25/24 09:30 MB [id number]) OP-PT Subjective Patient Comments Patient Comments Pt states that exercises are going well. He has discomfort at night time on his knee that occ awakens him. Tramadol made him loopy the next day. PT-OP-G Mobility & Gait Start: 06/08/24 13:05 Freq: Status: Active Protocol: Document 06/13/24 08:56 MB (Rec: 06/13/24 09:46 MB [id number]) OP Gait Assessment Comments Gait Comments Better heel-to gait and step- through gait and gait speed with RW today compared to use of SPC in right hand and then step-length and speed are reduced as well as heel strike PT-OP-J Posture/Palpation/Skin Start: 06/08/24 13:05 Freq: Status: Active Protocol: Document 06/13/24 08:56 MB (Rec: 06/13/24 13:36 MB [id number]) Skin Assessment Other Assessments Skin Assessment Comments LLE with dressing over knee and also over fountain, edema, measured for compression hose and is currently size M for JOBST thigh high compression 15-20 mmHg PT-OP-K Range of Motion Start: 06/08/24 13:05 Freq: Status: Active Protocol: Document 06/13/24 08:56 MB (Rec: 06/13/24 09:46 MB [id number]) Knee Goniometric Range of Motion Knee Left Comments AROM supine 10-102 deg Right Comments AROM supine 4-122 deg PT-OP-M Strength Start: 06/08/24 13:05 Freq: Status: Active Protocol: Document 06/13/24 08:56 MB (Rec: 06/13/24 13:36 MB [id number]) Hip Strength Hip Manual Muscle Testing Left Flexion (L2) 4+ Good+ Adduction 5 Normal Right Flexion (L2) 5 Normal Abduction 5 Normal Knee Strength Knee Manual Muscle Testing Left Comments Deferred post-op and pt presents with extensor lag with SLR today Right Flexion (S2) 5 Normal Extension (L3) 5 Normal Ankle/Foot Strength Ankle and Foot Manual Muscle Testing Bilateral Dorsiflexion (L4) 5 Normal Comments Deferred heel raises to check PF strength today Toe Strength Toe Manual Muscle Testing Left Great Toe Extension 5 Normal Right Great Toe Extension 5 Normal PT-OP-Q Treatments Start: 06/08/24 13:05 Freq: Status: Active Protocol: Document 07/25/24 09:01 MB (Rec: 07/25/24 09:30 MB [id number]) Cardio Equipment Bicycle (Upright) Duration (Minutes) 10 Resistance 10 Seat Position 6 Therapeutic Exercises Supine Exercises Alex stretch Side bilateral Reps/Minutes 45 sec hold, one rep each leg Manual Therapy Treatment Consent Patient gave verbal consent for manual Yes treatment Other Other Manual Treatments Pt supine with head and legs supported: TrP left vastus and then therapy cream and STM quads, hamstrings, adductors and PFs LLE PT-OP-T Assessment and Plan Start: 06/08/24 13:05 Freq: Status: Active Protocol: Document 07/25/24 09:01 MB (Rec: 07/25/24 09:30 MB [id number]) Physical Therapy Assessment Goals 5 Impairment Lack of HEP Impairment . Utilization Management Rn Goal (LTG) Pt will perform progressive HEP with I including alignment , flexibility, strengthening, balance and gait activities to improve strength and I. 07/10/24: Pt is performing HEP and does not have questions today LTG Duration 8 weeks 4 Impairment Lack of left knee AROM Impairment . Utilization Management Rn Goal (LTG) Pt will present with improved AROM left knee equal to right knee to improve standing, gait and transfers. 07/10/24: AROM supine left: 4- 121 deg; right 4-134 deg. LTG Duration 8 weeks 2 Impairment Gait impairment Impairment . Utilization Management Rn Goal (LTG) Pt will gait train at least 1581 feet in 6 minutes without AD to improve community ambulation and balance. 07/10/24: Pt gait trains 1371 feet in 6 minutes. He has some left knee fatigue and he scuffs right foot twice during gait LTG Duration 8 weeks 1 Impairment LEF score reflects 80% impairment Impairment . Utilization Management Rn Goal (LTG) Pt will present with improved LEF score to reflect no more than 20% impairment to improve pain and quality of life. 07/10/24: LEF reflects 31.25% impairment LTG Duration 8 weeks Assessment Summary Assessment Pt has some repetitive exercises for home and just needs one hip abduction exercise. Plan to have FIBER PRODUCT CUTTING MACHINE OPERATOR review and remove next treatment date. Progress balance such as SLS. Added Alex stretch and manual work today. Work on golf swing for balance and consider golfer's lift for exercise. Physical Therapy Plan Frequency and Duration Frequency of Treatment 2x/Week Duration of treatment (weeks) 8 Plan of Care Start Date 06/13/24 Plan of Care End Date 08/15/24 Therapeutic Interventions Therapeutic Interventions Balance Training,Canalithic Repositioning,Coordination Training,Gait Training,Home Exercise Program,Joint Mobilizations,Manual Therapy, Neuromuscular Re-education, Patient/Caregiver Education, Self-Care/Home Management,Soft Tissue Mobilization,Taping, Therapeutic Activities, Therapeutic Exercises Modalities Cold Pack/Ice Massage,Electric Stimulation,Hot Packs, Ultrasound Next Visit Focus/Plan Next Note Type Treatment Note Next Visit Plan Upright bike on seat 6 Work on golf swing Progress balance exercises such as SLS, considr golfer's lift for balance and core Review all exercises and take out or progress as needed-- please remove repetitive exercises (just side stepping for hip abduction, does not need multiple abduction exercises) Manual work
--- NOTE | 2024-07-31 09:46 | PT.OTN ---
Current Diagnoses Unilateral primary osteoarthritis, left knee (07/31/24) Physical Therapy Treatment Note PT-OP-A Visit Information Start: 06/08/24 13:05 Freq: Status: Active Protocol: Document 07/31/24 09:05 MB (Rec: 07/31/24 09:45 MB [id number]) Out-Patient Physical Therapy Visit Information Visit Information Visit Type Treatment Note Visit Start Time 09:05 Visit Stop Time 09:45 Visit Number 13 Number of FISHING INSTRUCTOR Visits 0 Evaluation Information Evaluation Date 06/13/24 Precautions Precautions Pt is on 325 mg aspirin twice a day, keep an eye on orthostatic hypotension PT-OP-B Current Condition Start: 06/08/24 13:05 Freq: Status: Active Protocol: Document 06/13/24 08:56 MB (Rec: 06/13/24 09:46 MB [id number]) Current Condition History of Current Condition Onset Date L TKA 06/06/24 Current Complaints General unsteadiness History of Current Condition Pt reports since surgery, he has a general unsteadiness. He initially has pain of 8/10 with standing and the pain decreases to 3/10 once he is up standing. His left leg feels like weight. Pt is waking up d/t pain at night. There are two steps to enter home with rail and he uses cane. He is taking Tramadol at night to help sleep. He is icing frequency. Pt would like to get back to walking, golfing, outdoor biking and boating. PMH includes right hip replacement and pacer Treatment Goals Patient/Caregiver Goals Decreased pain, improve steadiness, walking and range PT-OP-C Subjective Start: 06/08/24 13:05 Freq: Status: Active Protocol: Document 07/31/24 09:05 MB (Rec: 07/31/24 09:45 MB [id number]) OP-PT Subjective Patient Comments Patient Comments Pt con't to have ache in his left knee at night and he will ask the orthopedic surgeon about this on Wednesday. PT-OP-G Mobility & Gait Start: 06/08/24 13:05 Freq: Status: Active Protocol: Document 06/13/24 08:56 MB (Rec: 06/13/24 09:46 MB [id number]) OP Gait Assessment Comments Gait Comments Better heel-to gait and step- through gait and gait speed with RW today compared to use of SPC in right hand and then step-length and speed are reduced as well as heel strike PT-OP-J Posture/Palpation/Skin Start: 06/08/24 13:05 Freq: Status: Active Protocol: Document 06/13/24 08:56 MB (Rec: 06/13/24 13:36 MB [id number]) Skin Assessment Other Assessments Skin Assessment Comments LLE with dressing over knee and also over fountain, edema, measured for compression hose and is currently size M for JOBST thigh high compression 15-20 mmHg PT-OP-K Range of Motion Start: 06/08/24 13:05 Freq: Status: Active Protocol: Document 06/13/24 08:56 MB (Rec: 06/13/24 09:46 MB [id number]) Knee Goniometric Range of Motion Knee Left Comments AROM supine 10-102 deg Right Comments AROM supine 4-122 deg PT-OP-M Strength Start: 06/08/24 13:05 Freq: Status: Active Protocol: Document 06/13/24 08:56 MB (Rec: 06/13/24 13:36 MB [id number]) Hip Strength Hip Manual Muscle Testing Left Flexion (L2) 4+ Good+ Adduction 5 Normal Right Flexion (L2) 5 Normal Abduction 5 Normal Knee Strength Knee Manual Muscle Testing Left Comments Deferred post-op and pt presents with extensor lag with SLR today Right Flexion (S2) 5 Normal Extension (L3) 5 Normal Ankle/Foot Strength Ankle and Foot Manual Muscle Testing Bilateral Dorsiflexion (L4) 5 Normal Comments Deferred heel raises to check PF strength today Toe Strength Toe Manual Muscle Testing Left Great Toe Extension 5 Normal Right Great Toe Extension 5 Normal PT-OP-Q Treatments Start: 06/08/24 13:05 Freq: Status: Active Protocol: Document 07/31/24 09:05 MB (Rec: 07/31/24 09:45 MB [id number]) Cardio Equipment Bicycle (Upright) Duration (Minutes) 10 Resistance 10 Seat Position 6 Therapeutic Exercises Supine Exercises Alex stretch Supine Exercise Name Verbally reviewed today HS stretch Supine Exercise Name Verbally reviewed today SLR Supine Exercise Name Verbally reviewed today Sitting Exercises sit to stand Sitting Exercise Name Re-added to HEP and will use band around legs Resistance Purple LF band Comments 22 reps today until fatigue Standing Exercises PF stretches Standing Exercise Name Verbally reviewed today Wall slide squat Standing Exercise Name D/cd today d/t pain and crepitus right knee resisted stepping Standing Exercise Name Verbally reviewed today and provided purple band Neuro Re-Education Treatment Balance Activities Golf swing Comments Working on driving x10 and use putter Golfer's lift Comments Working on pendulum type positioning, core tight, glute awareness and working on balance SLS Comments 10 sec on right leg and cues to work up to 1 minute at home on each leg; more ankle strategy on left leg PT-OP-T Assessment and Plan Start: 06/08/24 13:05 Freq: Status: Active Protocol: Document 07/31/24 09:05 MB (Rec: 07/31/24 09:45 MB [id number]) Physical Therapy Assessment Goals 5 Impairment Lack of HEP Impairment . Agricultural Mechanic Goal (LTG) Pt will perform progressive HEP with I including alignment , flexibility, strengthening, balance and gait activities to improve strength and I. 07/10/24: Pt is performing HEP and does not have questions today LTG Duration 8 weeks 4 Impairment Lack of left knee AROM Impairment . Longterm Goal (LTG) Pt will present with improved AROM left knee equal to right knee to improve standing, gait and transfers. 07/10/24: AROM supine left: 4- 121 deg; right 4-134 deg. LTG Duration 8 weeks 2 Impairment Gait impairment Impairment . Longterm Goal (LTG) Pt will gait train at least 1581 feet in 6 minutes without AD to improve community ambulation and balance. 07/10/24: Pt gait trains 1371 feet in 6 minutes. He has some left knee fatigue and he scuffs right foot twice during gait LTG Duration 8 weeks 1 Impairment LEF score reflects 80% impairment Impairment . Agricultural Mechanic Goal (LTG) Pt will present with improved LEF score to reflect no more than 20% impairment to improve pain and quality of life. 07/10/24: LEF reflects 31.25% impairment LTG Duration 8 weeks Assessment Summary Assessment Reviewed all pt handouts today and revised HEP and added final balance exercises. Pt to try driving at the range and anticipate d/c PT next treatment. Physical Therapy Plan Next Visit Focus/Plan Next Note Type Discharge Summary Next Visit Plan Review goals, manual work if time
--- NOTE | 2024-08-02 09:54 | PT.OTN ---
Current Diagnoses Unilateral primary osteoarthritis, left knee (08/02/24) Physical Therapy Treatment Note PT-OP-A Visit Information Start: 06/08/24 13:05 Freq: Status: Active Protocol: Document 08/02/24 09:00 MB (Rec: 08/02/24 09:54 MB [id number]) Out-Patient Physical Therapy Visit Information Visit Information Visit Type Treatment Note Visit Start Time 09:00 Visit Stop Time 09:40 Visit Number 14 Number of MAINTENANCE APPRENTICE Visits 0 Evaluation Information Evaluation Date 06/13/24 Precautions Precautions Pt is on 325 mg aspirin twice a day, keep an eye on orthostatic hypotension PT-OP-B Current Condition Start: 06/08/24 13:05 Freq: Status: Active Protocol: Document 06/13/24 08:56 MB (Rec: 06/13/24 09:46 MB [id number]) Current Condition History of Current Condition Onset Date L TKA 06/06/24 Current Complaints General unsteadiness History of Current Condition Pt reports since surgery, he has a general unsteadiness. He initially has pain of 8/10 with standing and the pain decreases to 3/10 once he is up standing. His left leg feels like weight. Pt is waking up d/t pain at night. There are two steps to enter home with rail and he uses cane. He is taking Tramadol at night to help sleep. He is icing frequency. Pt would like to get back to walking, golfing, outdoor biking and boating. PMH includes right hip replacement and pacer Treatment Goals Patient/Caregiver Goals Decreased pain, improve steadiness, walking and range PT-OP-C Subjective Start: 06/08/24 13:05 Freq: Status: Active Protocol: Document 08/02/24 09:00 MB (Rec: 08/02/24 09:54 MB [id number]) OP-PT Subjective Patient Comments Patient Comments Pt tried a few swings with his golf clubs outside. He slept a little better the last couple of nights. He might go to the driving range today. He sees surgeon on Wednesday. Cardiology appointment is Aug 20 or . PT-OP-G Mobility & Gait Start: 06/08/24 13:05 Freq: Status: Active Protocol: Document 06/13/24 08:56 MB (Rec: 06/13/24 09:46 MB [id number]) OP Gait Assessment Comments Gait Comments Better heel-to gait and step- through gait and gait speed with RW today compared to use of SPC in right hand and then step-length and speed are reduced as well as heel strike PT-OP-J Posture/Palpation/Skin Start: 06/08/24 13:05 Freq: Status: Active Protocol: Document 06/13/24 08:56 MB (Rec: 06/13/24 13:36 MB [id number]) Skin Assessment Other Assessments Skin Assessment Comments LLE with dressing over knee and also over fountain, edema, measured for compression hose and is currently size M for JOBST thigh high compression 15-20 mmHg PT-OP-K Range of Motion Start: 06/08/24 13:05 Freq: Status: Active Protocol: Document 06/13/24 08:56 MB (Rec: 06/13/24 09:46 MB [id number]) Knee Goniometric Range of Motion Knee Left Comments AROM supine 10-102 deg Right Comments AROM supine 4-122 deg PT-OP-M Strength Start: 06/08/24 13:05 Freq: Status: Active Protocol: Document 06/13/24 08:56 MB (Rec: 06/13/24 13:36 MB [id number]) Hip Strength Hip Manual Muscle Testing Left Flexion (L2) 4+ Good+ Adduction 5 Normal Right Flexion (L2) 5 Normal Abduction 5 Normal Knee Strength Knee Manual Muscle Testing Left Comments Deferred post-op and pt presents with extensor lag with SLR today Right Flexion (S2) 5 Normal Extension (L3) 5 Normal Ankle/Foot Strength Ankle and Foot Manual Muscle Testing Bilateral Dorsiflexion (L4) 5 Normal Comments Deferred heel raises to check PF strength today Toe Strength Toe Manual Muscle Testing Left Great Toe Extension 5 Normal Right Great Toe Extension 5 Normal PT-OP-Q Treatments Start: 06/08/24 13:05 Freq: Status: Active Protocol: Document 08/02/24 09:00 MB (Rec: 08/02/24 09:54 MB [id number]) Cardio Equipment Bicycle (Upright) Duration (Minutes) 10 Resistance 10 Seat Position 6 Therapeutic Exercises Supine Exercises AROM Comments See goals for findings today for B knee ROM Gait Training Gait Activity 6 MWT Comments Performed again today and see goals for gait pattern comments and distance Manual Therapy Treatment Consent Patient gave verbal consent for manual Yes treatment Other Other Manual Treatments Pt supine with head and legs supported: STM left medial hamstrings, grade I-II patellar mobs, STM with therapy cream Self-Care/Home Management Treatment Education Other Education Wrote out orthostatic assessments from 06/08, 07/10, 08/02 for pt to take to guest relations executive, PT card included Activities Self-Care/Home Management Activities Orthostatic assessment with BP and HR in LUE: Supine 140/78, 64 Standing 123/69, 70 Standing 1' 125/71, 69 PT-OP-T Assessment and Plan Start: 06/08/24 13:05 Freq: Status: Active Protocol: Document 08/02/24 09:00 MB (Rec: 08/02/24 09:54 MB [id number]) Physical Therapy Assessment Goals 5 Impairment Lack of HEP Impairment . Outpatient Coordinator Goal (LTG) Pt will perform progressive HEP with I including alignment , flexibility, strengthening, balance and gait activities to improve strength and I. 07/10/24: Pt is performing HEP and does not have questions today 08/02/24: Pt is performing revised HEP and he is heading out to the driving range. LTG Duration 8 weeks 4 Impairment Lack of left knee AROM Impairment . Outpatient Coordinator Goal (LTG) Pt will present with improved AROM left knee equal to right knee to improve standing, gait and transfers. 07/10/24: AROM supine left: 4- 121 deg; right 4-134 deg. 08/02/24: AROM left knee 0-125 deg; right knee 3-130 deg LTG Duration Partially met 2 Impairment Gait impairment Impairment . Outpatient Coordinator Goal (LTG) Pt will gait train at least 1581 feet in 6 minutes without AD to improve community ambulation and balance. 07/10/24: Pt gait trains 1371 feet in 6 minutes. He has some left knee fatigue and he scuffs right foot twice during gait 08/02/24: Pt gait trains 1385 feet in 6 minutes and he does talk throughout gait today and he decreased arm swing on the right and mild occ right foot flop position and he does not note fatigue LTG Duration Partially met 1 Impairment LEF score reflects 80% impairment Impairment . Alf Goal (LTG) Pt will present with improved LEF score to reflect no more than 20% impairment to improve pain and quality of life. 07/10/24: LEF reflects 31.25% impairment 08/02/24: LEF reflects 27.5% impairment LTG Duration Partially met Assessment Summary Assessment Pt has progressed towards all PT goals. He met HEP goal and is getting back to swinging his golf club and may get to driving range today. He has ortho appointment on PT and cardiology appointment the beginning of August and he will communicate with the guest relations executive about orthostatic hypotension. Pt is ready to d /c PT. If he would like to check in before boating and full golfing season in the spring for flexibility, balance, knee, etc, ed pt that he can get a referral for a short PT course.
== END 2024-08-11 09:32 | disposition home or self-care (01) ==
LOC: PHYS 09:00
PROVIDERS: Family Provider Internal Medicine; PCP Internal Medicine; Referring Provider Orthopaedic Surgery; Visit Provider Orthopaedic Surgery
DX: M17.12 Unilateral primary osteoarthritis, left knee (principal)
CPT/HCPCS: 97110; 97112; 97116; 97140; 97161; 97535

== ENCOUNTER → 2024-12-05 09:29 | Outpatient (CLI) | payer MEDICARE, SELFPAY ==
[2024-12-05 10:37] LABS: Aspartate Aminotransferase 33 IU/L (17-59); BUN Creatinine Ratio 26.4 (6-22); Blood Urea Nitrogen 29 mg/dL (9-20); Carbon Dioxide 25 mmol/L (22-32); Chloride 105 mmol/L (98-107); Cholesterol 133 mg/dL (140-199); Estimated Glomerular Filt Rate > 60 mL/min (>60); Glucose 107 mg/dL (80-110); HDL Cholesterol 47 mg/dL (40-60); HEMOLYSIS < 15 (0-50); LDL Cholesterol Calculated 58 mg/dL (<100); Potassium 4.7 mmol/L (3.4-5.1); Sodium 140 mmol/L (137-145); Triglycerides 139 mg/dL (35-150)
== END ==
PROVIDERS: Family Provider Internal Medicine; PCP Internal Medicine; Referring Provider Internal Medicine; Visit Provider Internal Medicine
DX: I10 Essential (primary) hypertension (principal); N40.1 Benign prostatic hyperplasia with lower urinary tract symptoms; E78.2 Mixed hyperlipidemia; N13.8 Other obstructive and reflux uropathy
CPT/HCPCS: 80048; 80061; 84153; 84450

== ENCOUNTER → 2025-04-30 11:14 | Outpatient (CLI) | payer MEDICARE, SELFPAY ==
[2025-04-30 13:24] LABS: Prostate Specific Antigen 3.38 ng/mL (0.10-4.00)
== END ==
PROVIDERS: Family Provider Internal Medicine; PCP Internal Medicine; Referring Provider Internal Medicine; Visit Provider Internal Medicine
DX: R97.20 Elevated prostate specific antigen [PSA] (principal)
CPT/HCPCS: 36415; 84153

== ENCOUNTER → 2025-05-23 10:37 | Outpatient (CLI) | payer MEDICARE, SELFPAY ==
[2025-05-23 12:43] LABS: Urine N gonorrhoeae NOT DETECTED
[2025-05-23 12:44] LABS: Urine Chlamydia NOT DETECTED
== END ==
PROVIDERS: Family Provider Internal Medicine; PCP Internal Medicine; Referring Provider Internal Medicine; Visit Provider Internal Medicine
DX: Z20.9 Contact with and (suspected) exposure to unspecified communicable disease (principal)
CPT/HCPCS: 87491; 87591